=== PATIENT | female | born 1955 | race Caucasian/White ===

== ENCOUNTER 2023-02-03 13:36 | Outpatient (OUT) | payer MEDICARE, OTHER, SELFPAY ==
--- NOTE | 2023-02-03 13:48 | US_ITS ---
The [address] [address] Patient Name: ANGEL ANGEL MRN: [id number] date: 1955 Sex: F Assigned Patient Location: US Current Patient Location: US Accession/Order Number: [id number] Exam Date: 02/03/2023 13:49 Report Date: 02/03/2023 15:51 At the request of: NON-STAFF PHYSICIAN Procedure: US soft tissue head and neck EXAM: US soft tissue head and neck HISTORY: History of radioactive iodine thyroid ablation Z92.3, C73 COMPARISON: Ultrasound thyroid 10/01/2022 TECHNIQUE: Percutaneous ultrasound evaluation. FINDINGS: Prior thyroidectomy. Unremarkable right thyroid fossa. Left thyroid fossa contains a 5 x 5 x 4 mm hypoechoic area which is similar to prior study. US/US soft tissue head and neck IMPRESSION: 1. Stable postsurgical changes versus residual thyroid tissue within left thyroid fossa. No new findings. Electronically authenticated by: TOMER WYLIE Date: 02/03/2023 15:51
[2023-02-03 15:06] LABS: Free Thyroxine Index 4.52 (1.30-4.50); Thyroid Stimulating Hormone 1.387 uIU/mL (0.358-3.740)
[2023-02-05 18:08] LABS: Thyroglobulin Antibody <1.0 IU/mL (0.0-0.9)
== END 2023-02-03 13:37 | disposition home or self-care (01) ==
LOC: US 13:41
PROVIDERS: PCP Family Medicine
DX: C73 Malignant neoplasm of thyroid gland (principal); Z92.3 Personal history of irradiation
CPT/HCPCS: 36415; 76536; 84436; 84443; 84479

== ENCOUNTER 2023-08-16 08:58 | Outpatient (OUT) | payer MEDICARE, OTHER, SELFPAY ==
--- NOTE | 2023-08-16 09:02 | US_ITS ---
The [address] [address] Patient Name: ANGEL ANGEL MRN: [id number] date: 1955 Sex: F Assigned Patient Location: US Current Patient Location: US Accession/Order Number: [id number] Exam Date: 08/16/2023 09:03 Report Date: 08/16/2023 15:17 At the request of: NON-STAFF PHYSICIAN Procedure: US soft tissue head and neck EXAMINATION: US soft tissue head and neck HISTORY: Papillary thyroid carcinoma C73 COMPARISON: Ultrasound soft tissue head and neck 02/03/2023 FINDINGS: RIGHT LOBE: Prior thyroidectomy. Small amount of homogeneous tissue within right thyroid bed, approximately 2.1 x 0.7 x 0.7 cm. LEFT LOBE: Prior thyroidectomy. Small amount of homogeneous tissue within right thyroid bed, proximally 0.6 x 0.5 0.7 cm. US/US soft tissue head and neck IMPRESSION: 1. Nonspecific soft tissue within the right and left thyroid bed, but suspected represent residual thyroid tissue. Left side is stable. Right side is new versus better seen on today's study and able to document. Follow-up recommended. Electronically authenticated by: TOMER WYLIE Date: 08/16/2023 15:17
--- NOTE | 2023-08-16 09:03 | CT_ITS ---
[address] [address] Patient Name: ANGEL ANGEL MRN: [id number] date: 1955 Sex: F Assigned Patient Location: US Current Patient Location: US Accession/Order Number: [id number] Exam Date: 08/16/2023 09:19 Report Date: 08/16/2023 13:29 At the request of: NON-STAFF PHYSICIAN Procedure: CT lung screening low-dose EXAMINATION: CT lung screening low-dose HISTORY: continuous dependence on cigarette smoking F17.210 COMPARISON: CT LUNG CANCER SCREENING 08/11/2022 TECHNIQUE: Axial, Coronal, and Sagittal images were created without the administration of IV contrast material. Dose reduction techniques were achieved by using automated exposure control and/or adjustment of mA and/or kV according to patient size and/or use of iterative reconstruction technique. FINDINGS: LUNGS: Stable 3 mm nodule within right middle lobe. Stable 6 mm nodule within inferior aspect of left upper lobe/lingula with several 3 mm nodules scattered within the upper lobe, unchanged. No acute infiltrates. PLEURA: No mass, effusion, or pneumothorax. VASCULATURE: No abnormality. SAMMI: No mass or pathologic adenopathy. MEDIASTINUM: No mass or pathologic adenopathy. CARDIAC: No enlargement, pericardial thickening, or pericardial effusion. AORTA: No aneurysm or dissection. CHEST WALL: No mass or axillary adenopathy BONES: No bone lesion or fracture. LIMITED ABDOMEN: Stable 3.5 cm cyst versus hemangioma within left hepatic lobe. Limited images of the upper abdomen. OTHER: Negative. CT/CT lung screening low-dose IMPRESSION: 1. Lung-RADS 2- Benign Appearance or Behavior. Nodules with a very low likelihood of becoming a clinically active cancer due to size or lack of growth. Follow-up CT Chest in 1 year. Electronically authenticated by: TOMER WYLIE Date: 08/16/2023 13:29
[2023-08-16 10:49] LABS: Free T4 1.68 ng/dL (0.76-1.46)
[2023-08-16 10:58] LABS: Thyroid Stimulating Hormone 0.963 uIU/mL (0.358-3.740)
[2023-08-17 17:07] LABS: Thyroglobulin Antibody <1.0 IU/mL (0.0-0.9)
== END 2023-08-16 08:59 | disposition home or self-care (01) ==
LOC: US 08:58
PROVIDERS: PCP Family Medicine
DX: C73 Malignant neoplasm of thyroid gland (principal); Z08 Encounter for follow-up examination after completed treatment for malignant neoplasm; Z85.850 Personal history of malignant neoplasm of thyroid; Z92.3 Personal history of irradiation; F17.210 Nicotine dependence, cigarettes, uncomplicated; R91.8 Other nonspecific abnormal finding of lung field
CPT/HCPCS: 36415; 71271; 76536; 84439; 84443

== ENCOUNTER 2023-09-15 12:52 | Outpatient (OUT) | payer MEDICARE, OTHER, SELFPAY ==
--- NOTE | 2023-09-15 12:55 | MM_ITS ---
Patient Name: ANGEL ANGEL MR#: [id number] : 1955 Exam Date: 09/15/2023 Ordering Doctor: DR RACHEL FUENTES . RADIOLOGY REPORT PROCEDURE: MM TOMOSYNTHESIS SCREENING BI COMPARISON: MG MAMM SCREEN 3D [place] CAD, 12/11/2020. MG MAMM SCREEN 3D [place] CAD, 07/23/2022. INDICATIONS: Screening Calculator Name NCI Breast Cancer Risk Assessment Tool 5 Year Breast Cancer Risk 0.80% Lifetime Breast Cancer Risk 3.00% Personal Breast Cancer No Personal Ovarian Cancer No Treatments None Family Cancers Aunt-maternal with breast cancer at age 50; Brother with oral cancer at age 55; Brother with colon cancer at age 62. LOCATION: The [facility] BREAST COMPOSITION: The breasts are extremely dense, which lowers the sensitivity of mammography. FINDINGS: DIAGNOSTIC CATEGORY 2--BENIGN FINDING. NO CHANGE FROM COMPARISON. Scattered benign-appearing calcifications are present. Scattered benign-appearing lymph nodes are present. RIGHT BREAST: No significant suspicious finding. LEFT BREAST: No significant suspicious finding. RECOMMENDATIONS: ROUTINE MAMMOGRAM AND CLINICAL EVALUATION IN 12 MONTHS. PLEASE NOTE: A NORMAL MAMMOGRAM DOES NOT EXCLUDE THE POSSIBILITY OF BREAST CANCER. A CLINICALLY SUSPICIOUS PALPABLE LUMP SHOULD BE BIOPSIED. Dictated by: Silas Khalil MD on 09/15/2023 at 15:22 Approved by: Silas Khalil MD on 09/15/2023 at 15:25
== END 2023-09-15 12:53 | disposition home or self-care (01) ==
LOC: MAMMO 12:52
PROVIDERS: PCP Family Medicine; Visit Provider Family Medicine
DX: Z12.31 Encounter for screening mammogram for malignant neoplasm of breast (principal); Z80.3 Family history of malignant neoplasm of breast; Z80.0 Family history of malignant neoplasm of digestive organs; Z80.8 Family history of malignant neoplasm of other organs or systems
CPT/HCPCS: 77063; 77067

== ENCOUNTER 2023-10-16 10:05 | Emergency (ER) | payer MEDICARE, OTHER, SELFPAY ==
[2023-10-16 10:07] VITALS: BP 177/84; PULSE 91; TEMP 37.1; O2SAT 96; BMI 22.3
--- OUTSIDE RECORDS SUMMARY | 2023-10-16 10:18 | XMS_ITS | CCD ---
Author Organization [facility] Care Team Providers Care Athletic Agent Name Role Phone JI FERRERA JR Referring Unavailable HOY, RACHEL M Primary Care Unavailable HOY ., DR RAMOS Admitting Unavailable HOY ., DR RAMOS Primary Care Unavailable HOY ., DR RAMOS Consulting Unavailable HOY ., DR RAMOS Attending Unavailable ZIEBER, DR SHAQ Butts Consulting Unavailable HOY ., DR RAMOS Admitting Unavailable HOY ., DR RAMOS Primary Care Unavailable HOY ., DR RAMOS Consulting Unavailable HOY ., DR RAMOS Attending Unavailable ZIEBER, DR SHAQ Butts Consulting Unavailable HOY ., DR RAMOS Admitting Unavailable HOY ., DR RAMOS Primary Care Unavailable HOY ., DR RAMOS Consulting Unavailable HOY ., DR RAMOS Attending Unavailable MISC, DR MOSQUERA Admitting Unavailable HOY ., DR RAMOS Primary Care Unavailable MISC, DR MOSQUERA Attending Unavailable TIMMIS, DR WORKMAN Admitting Unavailable HOY ., DR RAMOS Primary Care Unavailable TIMMIDion, DR WORKMAN Attending Unavailable HOY ., DR RAMOS Primary Care Unavailable MISC, DR MOSQUERA Admitting Unavailable MISC, DR MOSQUERA Consulting Unavailable MISC, DR MOSQUERA Attending Unavailable ZIEBER, DR SHAQ Butts Consulting Unavailable [facility], ANETTE A Attending Unavailable HOY, RACHEL M Referring Unavailable HOY, RACHEL M Primary Care Unavailable HOY, RACHEL M Referring Unavailable HOY, RACHEL M Primary Care Unavailable HOY, RACHEL M Referring Unavailable HOY, RACHEL M Primary Care Unavailable Problems Active Problems Problem Classification Problem Date Documented Da te Episodic/Chronic Cancer of thyroid (1 source) Malignant neoplasm of thyroid gland; Translations: [Malignant neoplasm of thyroid gland] Onset: 09-03-2020 Chronic Chronic obstructive pulmonary disease and bronchiectasis (4 sources) Chronic obstructive pulmonary disease, unspecified; Translations: [COPD UNSPECIFIED] Onset: 07-22-2022 Chronic Deficiency and other anemia (1 source) Anemia, unspecified; Translations: [ANEMIA UNSPECIFIED] Onset: 07-25-2022 Episodic Diabetes mellitus without complication (1 source) Other abnormal glucose; Translations: [OTHER ABNORMAL GLUCOSE] Onset: 07-25-2022 Episodic Disorders of lipid metabolism (1 source) Hyperlipidemia, unspecified; Translations: [HYPERLIPIDEMIA UNSPECIFIED] Onset: 07-25-2022 Chronic Fluid and electrolyte disorders (1 source) Dehydration; Translations: [DEHYDRATION] Onset: 07-25-2022 Episodic Nutritional deficiencies (1 source) Vitamin D deficiency, unspecified; Translations: [VITAMIN D DEFICIENCY UNSPECIFIED] Onset: 07-25-2022 Chronic Osteoporosis (1 source) Age-related osteoporosis without current pathological fracture; Translations: [AGE-REL OSTEOPOR W/O CURR PATH FX] Onset: 08-12-2022 Chronic Other screening for suspected conditions (not mental disorders or infectious disease) (5 sources) Encounter for screening mammogram for malignant neoplasm of breast; Translations: [Encounter for screening for malignant neoplasm of rectum] Onset: 07-23-2022 Episodic Residual codes; unclassified (1 source) Family history of malignant neoplasm of breast; Translations: [FAMILY HX MALIG NEOPLASM OF BREAST] Onset: 07-28-2022 Episodic Residual codes; unclassified (1 source) Family history of malignant neoplasm of digestive organs; Translations: [FAM HX MALIG NEOPLASM DIGESTIV ORGN] Onset: 07-28-2022 Episodic Residual codes; unclassified (1 source) Pain, unspecified; Translations: [Pain, unspecified] Onset: 08-31-2023 Episodic Substance-related disorders (2 sources) Nicotine dependence, cigarettes, uncomplicated; Translations: [Nicotine dependence, cigarettes, with unspecified nicotine-induced disorders] Onset: 08-12-2022 Chronic Past or Other Problems Problem Classification Problem Date Documented Da te Episodic/Chronic Cancer of thyroid (6 sources) Personal history of malignant neoplasm of thyroid; Translations: [PERSONAL HX MALIG NEOPLASM THYROID] Onset: 11-14-2020 Episodic Other aftercare (6 sources) Encounter for follow-up examination after completed treatment for malignant neoplasm; Translations: [ENC F/U EX AFTR CMPL [place] MALIG NEOPL] Onset: 11-14-2020 Episodic Residual codes; unclassified (1 source) Personal history of irradiation; Translations: [Personal history of irradiation] Onset: 11-14-2020 Episodic Results Test Name Value Interpretation Reference Range Facility THYROGLOBULIN AB AND THYROGL OBULINon 08-12-2022 Thyroglobulin Antibody <1.0 Normal 0.0-0.9 [facility] Comment on above: Result Comment: Thyr oglobulin Antibody measured by Antonio Faunsdale Methodology Performed By: #### T HYGIMA #### [facility] [address] [address] [address] Aung Mohamud Thyroglobulin by CUONG 0.1 ng/mL Critically low 1.5-38.5 [facility] Comment on above: Result Comment: Acco rding to the National Academy of Clinical Biochemistry, the reference interval for Thyroglobulin (TG) should be related to euthyroid patients and not for patients who underwent thyroidectomy. TG reference intervals for these patients depend on the residual mass of the thyroid tissue left after surgery. Establishing a post-operative baseline is recommended. The assay limit of quantitation is 0.1 ng/mL . Thyroglobulin measured by Antonio Sam Immunometric Assay Performed By: #### T HYGIMA #### [facility] [address] [address] [address] LUNG CANCER SCREENINGon 0 08-11-2022 CT LUNG CANCER SCREENING EXAMINATION: CT LUNG CANCER SCREENING HISTORY: Tobacco dependence caused by cigarettes COMPARISON: CT LUNG CANCER SCREENING 08/12/2021 TECHNIQUE: Axial, Coronal, and Sagittal images were created without the administration of IV contrast material. Dose reduction techniques were achieved by using automated exposure control and/or adjustment of mA and/or kV according to patient size and/or use of iterative reconstruction technique. FINDINGS: LUNGS: Several tiny nodules scattered within the lungs, largest is within anterior inferior aspect of left upper lobe, 5 mm. Minimal emphysematous changes. PLEURA: No mass, effusion, or pneumothorax. VASCULATURE: No abnormality. SAMMI: No mass or pathologic adenopathy. MEDIASTINUM: No mass or pathologic adenopathy. CARDIAC: No enlargement, pericardial thickening, or significant calcification. AORTA: No aneurysm or dissection. CHEST WALL: No mass or axillary adenopathy BONES: No bone lesion or fracture. LIMITED ABDOMEN: Left hepatic lobe cyst. Limited images of the upper abdomen. OTHER: Negative. IMPRESSION: 1. Lung-RADS 2- Benign Appearance or Behavior. Nodules with a very low likelihood of becoming a clinically active cancer due to size or lack of growth. Follow-up CT Chest in 1 year. Electronically authenticated by: SHAQ OSORIO Date: 2022-08-11 14:16 Normal [facility] TSHon 08-11-2022 TSH 0.766 uIU/mL Normal 0.358-3.740 [facility] Comment on above: Performed By: #### T SH #### [facility] [address] [place] [address] Dr. Aung Mohamud XR DEXA BONE DENSITYon 08-11 XR DEXA BONE DENSITY EXAMINATION: XR DEXA BONE DENSITY, 08/11/2022 1:06 PM EDT HISTORY: Senile osteoporosis COMPARISON: None. TECHNIQUE: Dual-energy X-ray absorptiometry (DEXA) bone density study performed for the axial skeleton. FINDINGS: SPINE ANALYSIS: Average bone mineral density is 0.711 g/cm2. T-score (standard deviation relative to young adult mean): -3.9 . HIP ANALYSIS: Lowest bone mineral density is within the right femoral trochanter, 0.405 g/cm2. T-score (standard deviation relative to young adult mean): -3.9 . IMPRESSION: World Jose M Organization Classification: Osteoporosis - High Fracture Risk Electronically authenticated by: SHAQ OSORIO Date: 2022-08-11 13:42 Normal [facility] INSULINon 07-23-2022 Insulin 7.2 uIU/mL Normal 2.6-24.9 [facility] Comment on above: Performed By: #### I NSULIN #### [facility] [address] [place] [address] Dr. Aung Mohamud MG MAMM SCREEN 3D GALINA CADon 07-23-2022 MG MAMM SCREEN 3D GALINA CAD Patient: MELISSA MAYFIELD I. Exam Date: 07/23/2022 : 1955 Gender:F Ordering : DR RACHEL CARVAJAL . Admission #: [id number] Family : Order #: [id number] CLICK HERE TO VIEW EXAM RADIOLOGY REPORT PROCEDURE: MAMMOGRAM SCREENING 3D BILATERAL CAD COMPARISON: MG MAMM SCREEN 3D GALINA CAD, 12/11/2020. INDICATIONS: Screening mammography Calculator Name NCI Breast Cancer Risk Assessment Tool 5 Year Breast Cancer Risk 0.80% Lifetime Breast Cancer Risk 3.10% Personal Breast Cancer No Personal Ovarian Cancer No Treatments None Family Cancers Aunt-maternal with breast cancer at age 50; Brother with oral cancer at age 55; Brother with colon cancer at age 62. LOCATION: [facility] BREAST COMPOSITION: Extremely dense, which lowers the sensitivity of mammography. FINDINGS: DIAGNOSTIC CATEGORY 2--BENIGN FINDING: RIGHT BREAST: No significant suspicious finding. No significant change has occurred. LEFT BREAST: No significant suspicious finding. Scattered benign-appearing nodules are present. No significant change has occurred. RECOMMENDATIONS: ROUTINE MAMMOGRAM AND CLINICAL EVALUATION IN 12 MONTHS. PLEASE NOTE: A NORMAL MAMMOGRAM DOES NOT EXCLUDE THE POSSIBILITY OF BREAST CANCER. A CLINICALLY SUSPICIOUS PALPABLE LUMP SHOULD BE BIOPSIED. Dictated by: Shaq Osorio M.D. on 07/24/2022 at 07:50 Approved by: Shaq Osorio M.D. on 07/24/2022 at 07:53 Normal [facility] CBC AUTO DIFFon 07-22-2022 BASO # 0.0 103/ul Normal 0.0-0.1 [facility] Comment on above: Performed By: #### C BC #### [facility] [address] [address] [address] Aung Mohamud Basophils/100 WBC (Bld) 0.2 % Normal 0.2-2.0 [facility] Comment on above: Performed By: #### C BC #### [facility] [address] [address] [address] Aung Mohamud EO # 0.1 103/ul Normal 0.0-0.7 [facility] Comment on above: Performed By: #### C BC #### [facility] [address] [address] [address] Aung Mohamud Eosinophils/100 WBC (Bld) 2.4 % Normal 0.9-7.0 [facility] Comment on above: Performed By: #### C BC #### [facility] [address] [address] [address] Aung Mohamud Erythrocyte distribution width (RBC) [Ratio] 14.1 % Normal 11.0-15.0 [facility] Comment on above: Performed By: #### C BC #### [facility] [address] [place] [address] Dr. Aung Mohamud Hematocrit (Bld) [Volume fraction] 43.3 % Normal 36.0-48.0 [facility] Comment on above: Performed By: #### C BC #### [facility] [address] [place] [address] Dr. Aung Mohamud Hemoglobin (Bld) [Mass/Vol] 14.5 g/dL Normal 12.0-16.0 [facility] Comment on above: Performed By: #### C BC #### [facility] [address] [place] [address] Dr. Aung Mohamud IG # 0.02 10e3/ul Normal 0.00-0.03 [facility] Comment on above: Performed By: #### C BC #### [facility] [address] [place] [address] Dr. Aung Mohamud IG % 0.3 % Normal 0.0-0.5 [facility] Comment on above: Performed By: #### C BC #### [facility] [address] [place] [address] Dr. Aung Mohamud LYMPH # 1.5 103/ul Normal 1.2-3.8 [facility] Comment on above: Performed By: #### C BC #### [facility] [address] [place] [address] Dr. Aung Mohamud Lymphocytes/100 WBC (Bld) 24.6 % Normal 20.5-60.0 [facility] Comment on above: Performed By: #### C BC #### [facility] [address] [place] [address] Dr. Aung Mohamud MANUAL DIFF REQ NO Normal [facility] Comment on above: Performed By: #### C BC #### [facility] [address] [place] [address] Dr. Aung Mohamud MCH (RBC) [Entitic mass] 31.1 pg Normal 26.7-34.0 [facility] Comment on above: Performed By: #### C BC #### [facility] [address] [address] [address] Aung Mohamud MCHC (RBC) [Mass/Vol] 33.5 g/dL Normal 29.9-35.2 [facility] Comment on above: Performed By: #### C BC #### [facility] [address] [place] [address] Dr. Aung Mohamud MCV (RBC) [Entitic vol] 92.9 fL Normal 81.0-99.0 [facility] Comment on above: Performed By: #### C BC #### [facility] [address] [place] [address] Dr. Aung Mohamud MONO # 0.3 103/ul Normal 0.3-0.8 [facility] Comment on above: Performed By: #### C BC #### [facility] [address] [place] [address] Dr. Aung Mohamud Monocytes/100 WBC (Bld) 4.9 % Normal 1.7-12.0 [facility] Comment on above: Performed By: #### C BC #### [facility] [address] [place] [address] Dr. Aung Mohamud NEUT # 4.0 103/ul Normal 1.4-6.5 [facility] Comment on above: Performed By: #### C BC #### [facility] [address] [place] [address] Dr. Aung Mohamud Neutrophils/100 WBC (Bld) 67.6 % Normal 43.0-75.0 [facility] Comment on above: Performed By: #### C BC #### [facility] [address] [place] [address] Dr. Aung Mohamud Platelet mean volume (Bld) [Entitic vol] 10.2 fL Normal 9.5-13.5 [facility] Comment on above: Performed By: #### C BC #### [facility] [address] [place] [address] Dr. Aung Mohamud PLT 333 103/ul Normal 150-450 [facility] Comment on above: Performed By: #### C BC #### [facility] [address] [address] [address] Aung Mohamud RBC 4.66 106/ul Normal 4.20-5.40 [facility] Comment on above: Performed By: #### C BC #### [facility] [address] [address] [address] Aung Mohamud WBC 5.9 103/ul Normal 4.0-11.0 [facility] Comment on above: Performed By: #### C BC #### [facility] [address] [address] [address] Aung Mohamud FREE THYROXINE INDEX T7on FTI 5.00 Critically high 1.30-4.50 [facility] Comment on above: Performed By: #### L IPID, T7, CMP, TSH ####[facility] [address] [address]Dr. Aung Mohamud T3U 37.0 % Normal 30.0-39.0 [facility] Comment on above: Performed By: #### L IPID, T7, CMP, TSH ####[facility] [address] [id number]. Aung Mohamud T4 [Mass/Vol] 13.50 ug/dL Normal 4.80-13.90 [facility] Comment on above: Performed By: #### L IPID, T7, CMP, TSH ####[facility] [address] [address]Dr. Aung Mohamud GLYCOHEMOGLOBIN A1Con 2022 ADA RECOMMENDATION SEE BELOW Normal [facility] Comment on above: Result Comment: ADA RECOMMENDED LIMIT 4.0 - 6.0 ADA THERAPEUTIC TARGET < 7.0 ACTION SUGGESTED > 7.0 Performed By: #### A 1C #### [facility] [address] [address] [address] Aung Mohamud Glucose [Mass/Vol] 117 mg/dL Normal [facility] Comment on above: Performed By: #### A 1C #### [facility] [address] [address] [address] Aung Mohamud HbA1c (Bld) [Mass fraction] 5.7 % Normal 4.5-6.2 [facility] Comment on above: Performed By: #### A 1C #### [facility] [address] [address] [address] Aung Mohamud IRONon 07-22-2022 Iron [Mass/Vol] 118.0 ug/dL Normal 50.0-170.0 [facility] Comment on above: Performed By: #### V ITAD, IRON #### [facility] [id number] Aung Mohamud LIPID PROFILEon 07-22-2022 CHOL-HDL RATIO NORM SEE BELOW Normal [facility] Comment on above: Result Comment: 3.3 - 4.4 LOW RISK 4.4 - 7.1 AVERAGE RISK 7.1 - 11.0 MODERATE RISK >11.0 HIGH RISK Performed By: #### L IPID, T7, CMP, TSH ####[facility] [address] [id number]. Aung Mohamud Cholesterol [Mass/Vol] 209 mg/dL Critically high <=200 [facility] Comment on above: Performed By: #### L IPID, T7, CMP, TSH ####[facility] [address] [address]Dr. Aung Mohamud Cholesterol in HDL [Mass/Vol] 66 mg/dL Critically high 40-60 [facility] Comment on above: Performed By: #### L IPID, T7, CMP, TSH ####[facility] [address] [id number]. Aung Mohamud Cholesterol in LDL [Mass/Vol] 118.8 mg/dL Normal [facility] Comment on above: Performed By: #### L IPID, T7, CMP, TSH ####[facility] [address] [id number]. Aung Mohamud Cholesterol.total/Cho lesterol in HDL [Mass ratio] 3.2 {ratio} Normal [facility] Comment on above: Performed By: #### L IPID, T7, CMP, TSH ####[facility] [address] [id number]. Aung Mohamud HDL NORMAL > or = 60 mg/dl - LOW CARDIOVASCULAR RISK <40 mg/dl - HIGH CARDIOVASCULAR RISK Normal [facility] Comment on above: Performed By: #### L IPID, T7, CMP, TSH ####[facility] [address] [address]Dr. Aung Mohamud LDL CALC NORMAL SEE BELOW Normal [facility] Comment on above: Result Comment: <100 mg/dl OPTIMAL 100 - 129 mg/dl NEAR OR ABOVE OPTIMAL 130 - 159 mg/dl BORDERLINE HIGH 160 - 189 mg/dl HIGH >190 mg/dl VERY HIGH Performed By: #### L IPID, T7, CMP, TSH ####[facility] [address] [address]Dr. Aung Mohamud Triglyceride [Mass/Vol] 121 mg/dL Normal <=150 [facility] Comment on above: Performed By: #### L IPID, T7, CMP, TSH ####[facility] [address] [address]Dr. Aung Mohamud VLDL CALC 24.2 mg/dL Normal [facility] Comment on above: Performed By: #### L IPID, T7, CMP, TSH ####[facility] [address] [address]Dr. Aung Mohamud PROF 14(COMP METB)on 023 Albumin [Mass/Vol] 3.7 g/dL Normal 3.4-5.0 [facility] Comment on above: Performed By: #### L IPID, T7, CMP, TSH ####[facility] [address] [address]Dr. Aung Mohamud Albumin/Globulin [Mass ratio] 0.9 {ratio} Normal [facility] Comment on above: Performed By: #### L IPID, T7, CMP, TSH ####[facility] [address] [address]Dr. Aung Mohamud ALP [Catalytic activity/Vol] 171 U/L Critically high 46-116 [facility] Comment on above: Performed By: #### L IPID, T7, CMP, TSH ####[facility] [address] [address]Dr. Aung Mohamud ALT [Catalytic activity/Vol] 16 U/L Normal 14-59 [facility] Comment on above: Performed By: #### L IPID, T7, CMP, TSH ####[facility] [address] [address]Dr. Aung Mohamud Anion gap [Moles/Vol] 10.9 mmol/L Normal [facility] Comment on above: Performed By: #### L IPID, T7, CMP, TSH ####[facility] [address] [address]Dr. Aung Mohamud AST [Catalytic activity/Vol] 18 U/L Normal 15-37 [facility] Comment on above: Performed By: #### L IPID, T7, CMP, TSH ####[facility] [address] [address]Dr. Aung Mohamud Bilirubin [Mass/Vol] 0.3 mg/dL Normal 0.2-1.0 [facility] Comment on above: Performed By: #### L IPID, T7, CMP, TSH ####[facility] [address] [address]Dr. Aung Mohamud Calcium [Mass/Vol] 9.4 mg/dL Normal 8.5-10.1 [facility] Comment on above: Performed By: #### L IPID, T7, CMP, TSH ####[facility] [address] [address]Dr. Aung Mohamud Chloride [Moles/Vol] 103 mmol/L Normal 98-107 [facility] Comment on above: Performed By: #### L IPID, T7, CMP, TSH ####[facility] [address] [address]Dr. Aung Mohamud CO2 [Moles/Vol] 27.8 mmol/L Normal 21.0-32.0 [facility] Comment on above: Performed By: #### L IPID, T7, CMP, TSH ####[facility] [address] [address]Dr. Aung Mohamud Creatinine [Mass/Vol] 0.71 mg/dL Normal 0.55-1.02 [facility] Comment on above: Performed By: #### L IPID, T7, CMP, TSH ####[facility] [address] [address]Dr. Aung Mohamud EGFR-AF CITIZEN [place] >60 Normal >=60 [facility] Comment on above: Performed By: #### L IPID, T7, CMP, TSH ####[facility] [address] [address]Dr. Aung Mohamud EGFR-NON AF CITIZEN OF [place] >60 Normal >=60 [facility] Comment on above: Performed By: #### L IPID, T7, CMP, TSH ####[facility] [address] [address]Dr. Aung Mohamud Globulin (S) [Mass/Vol] 4.3 g/dL Normal [facility] Comment on above: Performed By: #### L IPID, T7, CMP, TSH ####[facility] [address] [place], [place] [address]Dr. Aung Mohamud Glucose [Mass/Vol] 91 mg/dL Normal 74-106 [facility] Comment on above: Performed By: #### L IPID, T7, CMP, TSH ####[facility] [address] [address]Dr. Rosalinaharvey Mohamud Potassium [Moles/Vol] 3.7 mmol/L Normal 3.5-5.1 [facility] Comment on above: Performed By: #### L IPID, T7, CMP, TSH ####[facility] [address] [address]Dr. Aung Mohamdu Protein [Mass/Vol] 8.0 g/dL Normal 6.4-8.2 [facility] Comment on above: Performed By: #### L IPID, T7, CMP, TSH ####[facility] [address] [address]Dr. Aung Mohamud Sodium [Moles/Vol] 138 mmol/L Normal 136-145 [facility] Comment on above: Performed By: #### L IPID, T7, CMP, TSH ####[facility] [address] [id number]. Aung Mohamud Urea nitrogen [Mass/Vol] 13.0 mg/dL Normal 7.0-18.0 [facility] Comment on above: Performed By: #### L IPID, T7, CMP, TSH ####[facility] [address] [place] [id number]. uAng Mohamud Urea nitrogen/Creatinine [Mass ratio] 18.3 mg/mg Normal [facility] Comment on above: Performed By: #### L IPID, T7, CMP, TSH ####[facility] [id number] [place] [address]Dr. Aung Mohamud TSHon 07-22-2022 TSH 0.706 uIU/mL Normal 0.358-3.740 [facility] Comment on above: Performed By: #### L IPID, T7, CMP, TSH ####[facility] [id number] [place] [address]Dr. Aung Mohamud VITAMIN D 25 OHon 07-22-2022 VIT D 25-OH 10.2 ng/mL Normal [facility] Comment on above: Performed By: #### V JOSIE IRON #### [facility] [address] [place] [address] [address] Aung Mohamud VIT D RANGES SEE BELOW Normal [facility] Comment on above: Result Comment: <20 ng/mL Vit D deficient 20 - <30 ng/mL Vit D insufficient 30 - 100 ng/mL Vit D sufficient >100 ng/mL Potential Toxicity Performed By: #### V JOSIE IRON #### [facility] [address] [address] [address] Aung Mohamud Thyroid Stim. Horm.on 2021 Thyroid Stim. Horm. 0.43 uIU/mL Normal 0.30-5.00 [facility] Comment on above: Performed By: #### T SH #### [facility] [address] [place] [address] Manager Restaurant: Silas Dia MD NOVEL CORONAVIRUS NASOPHARYN GEAL - [facility] SPECIMEN ONLYon 09-16-2020 SARS-CoV-2 (COVID-19) RNA JOSE ROBERTO+probe Ql (Unsp spec) Not detected Normal NOT DETECTED [facility] Comment on above: Order Comment: Viral transport media - Collection must be done while wearing N-95 mask, eye protection, gown and gloves. Please label ALL specimens as 2019-nCoV rule out and deliver by hand. This test was performed using [employer] and has been approved as Emergency Use Authorization (EUA) for the qualitative detection of SARS-CoV-2 nucleic acid. Result Comment: [facility] Negative results do not preclude SARS-CoV-2 infection and should not be used as the sole basis for treatment or other patient management decisions. Optimum specimen types and timing for peak viral levels during infections caused by SARS-CoV-2 has not been determined. The possibility of a false negative result should especially be considered if the patient's recent exposures or clinical presentation suggest that SARS-CoV-2 infection is probable, and diagnostic tests for other causes of illness (e.g., other respiratory illness) are negative. Collection of a new specimen and re-testing may be necessary if the patient is critically ill or clinically deteriorating. Performed By: #### L [id number] #### [facility] (DEFAULT) [address] [place] [address] Outside Colonoscopyon 2020 Outside Colonoscopy [id number] C#1.00CD:127 Normal [facility] Lab Reportson 06-24-2020 Lab Reports [id number]#1.00CD:127 Normal [facility] Provider Letter FTMCon 06-21 Provider Letter [facility] Rachel Carvajal, [address] [place] [address] [place] [address] Re: MELISSA MAYFIELD Date of : 1955 Thank you for your referral of Melissa Mayfield who was seen on consultation on 2020, for positive occult stool. A colonoscopy is planned for further evaluation. I have enclosed my consultation notes for your review. I will be happy to follow Melissa should her symptoms persist. Sincerely, Hernán Raymundo MD General Surgery Normal [facility] Consent for Procedure/Surger yon 06-19-2020 Consent for Procedure/Surgery [id number] 86#1.00CD:127 Normal [facility] Facesheeton 06-19-2020 Facesheet [id number] 37#1.00CD:127 Normal [facility] Ambulatory Clinical Summaryo n 06-18-2020 Ambulatory Clinical Summary {[id number]}CD:[id number] Normal [facility] General Surgery Office/Clini c Noteon 06-18-2020 General Surgery Office/Clinic Note Chief Complaint referral for positive occult stool HPI Staff 65 year old female presents on consultation from Dr. Carvajal for positive occult stool. Denies obvious rectal bleeding. No rectal or abdominal pain. Denies nausea or vomiting. No unexplained weight loss. Denies change in bowel habits. She believes she had a colonoscopy greater than 10 years ago. No known family history of colon cancer. History of Present Illness 65 yo female referred for positive fecal occult blood, denies change in bms or gross blood in stools, no abdominal complaints; only abdominal operation cholecystectomy; reports remote colonoscopy over 10 years ago, reportedly wnl; no asa or NSAID use, no SBE prophylaxis, no fmhx of GI malignancy or IBD. smokes 1/2 ppd for many years. Review of Systems PHQ Score Initial Depression Screen Score: 0 ROS - Provider Constitutional: no fever, no sweats, no weight loss. Eyes: no glasses, no blurred vision, no visual loss. ENMT: no dentures, no hoarseness, no swallowing difficulties, no hearing loss, no ear infection(s), no nose bleeds. Cardiovascular: normal blood pressure, no chest pain, regular heartbeat, no heart murmur. Respiratory: no shortness of breath, no cough, no asthma, no wheezing. Gastrointestinal: no nausea, no vomiting, no diarrhea, no constipation, no blood in stool, no change in bowel habits, no abdominal pain, no hepatitis. Genitourinary: no kidney stones, no urine infection, no dysuria. Musculoskeletal: no pain, no weakness. Skin: no changing moles, no rash, no skin lumps. Neurologic: no seizures, no epilepsy, no headache. Psychiatric: no emotional or psychiatric problem. Heme/Lymph: no bleeding problems, no anemia, no blood clots, no transfusions. Allergy/Immunologic : no swollen lymph nodes/glands, no IV drug abuse. Other: Additional ROS info: Except as noted in the above Review of Systems and in the History of Present Illness, all other systems have been reviewed and are negative or noncontributory. Physical Exam Vitals & Measurements T: 37.0 ?C (Tympanic) HR: 68(Peripheral) RR: 16 BP: 122/84 HT: 157.48 cm HT: 157.5 cm WT: 63.2 kg WT: 63.2 kg BMI: 25.48 HEENT: normal conjunctiva, sclera clear, no scleral icterus, EOM intact, PERRLA, oral mucosa moist without lesions. Neck: trachea midline, no mass, symmetric, no thyromegaly or nodules, no adenopathy Respiratory: lungs CTA, respirations non labored. Cardiovascular: regular rate and rhythm, no murmur, no pedal edema or varicosities. Gastrointestinal: soft, non distended, no tenderness, no masses, no palpable hernias, diastasis recti no, no hepatosplenomegaly; normal bs Lymphatic: no cervical adenopathy, no axillary adenopathy, Musculoskeletal: normal gait, digits and nails without infection, nodes, cyanosis, clubbing. Skin: no rashes, no lesions, no ulcers, no subcutaneous nodules, induration. Psychiatric/Neuro: oriented to time, place, person, judgement normal, affect appropriate for age, insight intact, no focal deficits. Tests: labs reviewed,of old records completed, Discussed surgical options, risks, and possible complications with patient. Assessment/Plan 1. Positive fecal occult blood test (R19.5: Other fecal abnormalities) plan colonoscopy under anesthesia, informed consent obtained. patient understands the risks associated with COVID-19, and the need for preoperative testing with self-isolation until the procedure. 2. Tobacco abuse (Z72.0: Tobacco use) We strongly recommend to quit tobacco use. Cigarette smoking harms nearly every organ of the body, causes many diseases, and reduces the health of smokers in general. Quitting smoking lowers your risk for smoking-related diseases and can add years to your life. We encourage you to visit www.smokefree.gov access to helpful resources including free telephone support. If you decide on prescription treatment to help you quit, your family doctor would be happy to provide these. 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 Medications No active medications Allergies No Known Allergies Social History Alcohol - Denies Alcohol Use, 06/18/2020 Substance Abuse - Denies Substance Abuse, 06/18/2020 Tobacco 10 or more cigarettes (1/2 pack or more)/day in last 30 days Tobacco Use:. Cigarettes, 1 per day. Started age 29.0 Years. Yes, 06/18/2020 Family History Hypertension: Mother and Father. [facility] Comment on above: Result Comment: Elec tronically Signed By: DENIZ STRATTON, Hernán Butts\zabrina\Date and Time Signed: 06/18/20 15:05 EST Physician Referralon 021 Physician Referral [id number] E9#1.00CD:127 [facility] Encounters Encounter Date Encounter Type Care Provider Facility Start: [facility] Start: 08-31-2023 End: 09-01-2023 ambulatory [facility] Start: 04-28-2023 End: 04-28-2023 ambulatory ANETTE RAJPUT Not Available Start: 10-01-[address] DOCTOR DELAROSA Facility :[facility] Start: 08-11-2022 End: 08-12-[address] RACHEL CARVAJAL . Facility:[facility] Start: 07-23-2022 End: 07-24-[address] RACHEL CARVAJAL . Facility:[facility] Start: 07-22-2022 End: 07-23-[address] RACHEL CARVAJAL . Facility:[facility] Start: 11-19-2021 End: 11-20-2021 ambulatory JI FERRERA JR [facility] Start: 11-14-[address] JI FERRERA [facility] ty:H1 Payers Date Payer Category Payer Unknown [id number] 2019 Unknown [id number] 1957 Medicare [id number] 1957 Self-pay 1957 Unknown [id number] 1955 Unknown [id number] 2.16.8 [id number] 1955 Unknown [id number] 2.16.84 [id number] 1955 Unknown [id number] 2.16.84 0.1.205964.3.579.2.593 1955 Unknown [id number] 2.16.84 0.1.680124.3.579.2.593 1955 Unknown [id number] 2.16.84 0.1.630367.3.579.2.593 1955 Unknown [id number] 2.16.84 0.1.936567.3.579.2.593 1955 Unknown [id number] 2.16.84 0.1.920394.3.579.2.593 1955 Unknown [id number] 2.16.840 .[id number] 1955 Unknown [id number] 2.16.8 40.1.957016.3.579.2.1286 1955 Unknown [id number] 2.16.8 40.1.982597.3.579.2.1286 1955 Unknown [id number] 2.16.8 [id number] 1955 Unknown [id number] 2.16.8 [id number] Summary Purpose Family History No Family History Records FoundNo Family History Records FoundNo Family History Records FoundNo Family History Records FoundNo Family History Records FoundNo Family History Records FoundNo Family History Records Found Advance Directives No Advanced Directives Records FoundNo Advanced Directives Records FoundNo Advanced Directives Records FoundNo Advanced Directives Records FoundNo Advanced Directives Records FoundNo Advanced Directives Records FoundNo Advanced Directives Records Found Additional Source Comments INFORMATION SOURCE (unrecogn ized section and content) DATE CREATED AUTHOR 07/13/[address] [facility] DATE CREATED AUTHOR AUTHOR'S ORGANIZ ATION 09/17/2020 [facility] DATE CREATED AUTHOR AUTHOR'S ORGANIZ ATION 11/20/2021 [facility] DATE CREATED AUTHOR AUTHOR'S ORGANIZ ATION 09/28/2022 [facility] DATE CREATED AUTHOR AUTHOR'S ORGANIZ ATION [facility]/30/2023 [facility] DATE CREATED AUTHOR AUTHOR'S ORGANIZ ATION 09/01/2023 [facility] DATE CREATED AUTHOR AUTHOR'S ORGANIZ ATION 09/01/2023 [facility] FOR RECORDS PERTAINING TO PATIENTS WHO ARE OR HAVE BEEN ENROLLED IN A CHEMICAL DEPENDENCY/SUBSTANCEABUSE PROGRAM, SOME INFORMATION MAY BE OMITTED. This clinical summary was aggregated from multiple sources. Caution should be exercised in using it in the provision of clinical care. This summary normalizes information from multiple sources, and as a consequence, information in this document may materially change the coding, format and clinical context of patient data. In addition, data may be omitted in some cases. CLINICAL DECISIONS SHOULD BE BASED ON THE PRIMARY CLINICAL RECORDS. [facility] [employer] [facility]. provides no warranty or guarantee of the accuracy or completeness of information in this document.
[2023-10-16 10:22] VITALS: O2SAT 96
--- NOTE | 2023-10-16 10:34 | ED_ITS ---
HPI HPI - Extremity Injury (Lower) General Chief Complaint: Extremity Injury, Upper Stated Complaint: FALL Time Seen by Provider: 10/16/23 10:30 Source: patient and family Mode of arrival: Wheelchair History of Present Illness HPI Narrative: This patient is here with her . She had a fall approximately kilometers today at her home. She fell onto her right side. She says she scraped up her knee a little bit on the left side but she said that is really not bothering her and she can bear weight and move without problems. She also hit her right shoulder but she said that it is not bothering her like her right knee. She does not have any pain in her ribs abdomen or pelvis area. She has not had previous surgery on her knee. The knee is primarily sore over the medial aspect. She does not have an orthopedics pediatric physician. She is not on any blood thinners. Related Data Home Medications ?Medication ?Instructions ?Recorded ?Confirmed alendronate 70 mg tablet 70 mg PO QWEEK 10/16/23 10/16/23 cetirizine 10 mg tablet (Allergy 10 mg PO BID 10/16/23 10/16/23 Relief (cetirizine)) levothyroxine 88 mcg tablet 88 mcg PO QAM 10/16/23 10/16/23 Allergies Allergy/AdvReac Type Severity Reaction Status Date / Time No Known Drug Allergies Allergy Verified 10/16/23 10:12 Opioid HPI Opioid Management Most Recent Pain and Opioid Data: No Data to Display Exam Narrative Exam Narrative: Patient is awake alert does not appear to have any cranial facial or head or neck trauma. Examining her left knee there is superficial abrasions but she has full range of motion and no effusion. There is no tenderness to palpation. She and I agree it does not need imaging at this stage. The right knee definitely has a joint effusion. There is no gross deformity or evidence of dislocation. Neurovascular examination distally is normal. The patient's patella is not high riding and is not ballotable. The quadriceps and patella tendon are normal. She has a lot of discomfort over the medial aspect of the knee but it was not manipulated or stress test. Her upper hip and thigh area are asymptomatic. The ribs and chest area are nontender. Constitutional Vital Signs, click to edit/add: Last Vital Signs Temp 98.7 F 10/16/23 10:07 Pulse 91 H 10/16/23 10:07 Resp 16 10/16/23 10:07 BP 177/84 H 10/16/23 10:07 Pulse Ox 96 10/16/23 10:22 O2 Del Method Room Air 10/16/23 10:22 Course Vital Signs Vital signs: Vital Signs Temperature 98.7 F 10/16/23 10:07 Pulse Rate 91 H 10/16/23 10:07 Respiratory Rate 16 10/16/23 10:07 Blood Pressure 177/84 H 10/16/23 10:07 Pulse Oximetry 96 10/16/23 10:07 Oxygen Delivery Method Room Air 10/16/23 10:07 Temperature 98.7 F 10/16/23 10:07 Pulse Rate 91 H 10/16/23 10:07 Respiratory Rate 16 10/16/23 10:07 Blood Pressure 177/84 H 10/16/23 10:07 Pulse Oximetry 96 10/16/23 10:22 Oxygen Delivery Method Room Air 10/16/23 10:22 MDM - Extremity Injury (Lower) MDM Narrative Medical decision making narrative: X-rays show just a lot of degenerative changes and joint space narrowing on that right knee. No obvious fractures noted. Will place her in a knee immobilizing device nonweightbearing ice and following up with orthopedics. Discharge Plan Discharge Stand Alone Forms: Portal Instructions Chief Complaint: Extremity Injury, Upper Clinical Impression: Right knee sprain Patient Disposition: Home, Self-Care Time of Disposition Decision: 11:24 Prescriptions / Home Meds: No Action levothyroxine 88 mcg tablet 88 mcg PO QAM alendronate 70 mg tablet 70 mg PO QWEEK cetirizine [Allergy Relief (cetirizine)] 10 mg tablet 10 mg PO BID Print Language: Mohawk Additional Instructions: Ice for 48 hours/wear knee immobilizer at all times/nonweightbearing use crutches. Follow-up with Dr. Louie or your orthopedist this coming week Referrals: Aaron Carvajal MD [Primary Care Provider] - 1 week
--- NOTE | 2023-10-16 10:35 | XR_ITS ---
[address] [address] Patient Name: ANGEL ANGEL MRN: [id number] date: 1955 Sex: F Assigned Patient Location: ER Current Patient Location: ED.MAIN Accession/Order Number: [id number] Exam Date: 10/16/2023 10:55 Report Date: 10/16/2023 11:39 At the request of: HENRY KOCH Procedure: XR knee RT 3V EXAM: Right knee HISTORY: . Trauma/swelling . COMPARISON: None. TECHNIQUE: 3 views FINDINGS: There is some mild narrowing of the lateral joint compartment. Hypertrophic spurs are noted involving the knee joint as well as the patellofemoral joint. No acute fracture is noted. There is a small suprapatellar effusion. XR/XR knee RT 3V IMPRESSION: 1. No acute bony abnormality of the right knee. 2. Moderate arthritic changes of the right knee. 3. Small suprapatellar effusion. Electronically authenticated by: MARI FUNEZ Date: 10/16/2023 11:39
[2023-10-16 12:09] VITALS: BP 160/86
== END 2023-10-16 12:19 | disposition home or self-care (01) ==
PROVIDERS: Emergency Provider Emergency Medicine Emergency Medical Services; PCP Family Medicine
DX: S83.91XA Sprain of unspecified site of right knee, initial encounter (principal); W19.XXXA Unspecified fall, initial encounter
CPT/HCPCS: 73562; 99283

== ENCOUNTER 2023-11-15 11:54 | Outpatient (OUT) | payer MEDICARE, OTHER, SELFPAY ==
--- NOTE | 2023-11-15 | XR_ITS ---
The [address] [address] Patient Name: ANGEL ANGEL MRN: [id number] date: 1955 Sex: F Assigned Patient Location: Current Patient Location: Accession/Order Number: [id number] Exam Date: 11/15/2023 12:02 Report Date: 11/17/2023 06:17 At the request of: TOMER CHAVEZ Procedure: XR knee RT 4V PROCEDURE: XR knee RT 4V HISTORY: RIGHT KNEE PAIN COMPARISON: XR knee right 10/16/2023 FINDINGS: BONES:Marked narrowing of the lateral joint space with [id number] articulation. Mild narrowing of the medial and anterior joint spaces. Degenerative osteophytes along the articular margins of all 3 compartments. No fracture or dislocation. SOFT TISSUES:No visible soft tissue swelling. EFFUSION:None visible. OTHER: Negative. XR/XR knee RT 4V IMPRESSION: 1. Marked degenerative joint disease, grossly stable. 2. No appreciable acute abnormality. Electronically authenticated by: TOMER WYLIE Date: 11/17/2023 06:17
--- OUTSIDE RECORDS SUMMARY | 2023-11-15 12:04 | XMS_ITS | CCD ---
Author Organization [facility] CliniSyfl Care Team Providers Care Ham Sawyer Name Role Phone JI FERRERA JR Referring [...] HOY ., DR RAMOS Primary Care Unavailable TIMMIS, DR WORKMAN Attending Unavailable HOY ., DR RAMOS Primary Care Unavailable MISC, DR MOSQUERA Admitting Unavailable MISC, DR MOSQUERA Consulting Unavailable MISC, DR MOSQUERA Attending Unavailable ZIEBER, DR SHAQ Butts Consulting Unavailable REGULO, ANETTE A Attending Unavailable HOY, RACHEL M [...] OBULINon 08-12-2022 Thyroglobulin Antibody <1.0 Normal 0.0-0.9 [facility] Comment on above: Result Comment: Thyr oglobulin Antibody measured by Antonio Bard Methodology Performed By: #### T HYGIMA #### [facility] [address] [address] [address] Aung Mohamud Thyroglobulin by CUONG 0.1 ng/mL Critically low 1.5-38.5 [facility] Comment on above: Result Comment: Acco rding [...] 0.1 ng/mL . Thyroglobulin measured by Antonio Bard Immunometric Assay Performed By: #### T HYGIMA #### [facility] [address] [address] LUNG CANCER SCREENINGon [...] by: SHAQ OSORIO Date: 2022-08-11 14:16 Normal [facility] TSHon 08-11-2022 TSH 0.766 uIU/mL Normal 0.358-3.740 [facility] Comment on above: Performed By: #### T SH #### [facility] [address] [place] [address] Dr. Aung Mohamud XR DEXA BONE DENSITYon [...] SHAQ OSORIO Date: 2022-08-11 13:42 Normal [facility] INSULINon 07-23-2022 Insulin 7.2 uIU/mL Normal 2.6-24.9 [facility] Comment on above: Performed By: #### I NSULIN #### [facility] [address] [place] [address] Dr. Aung Mohamud MG MAMM SCREEN 3D GALINA CADon 07-23-2022 MG MAMM SCREEN 3D GALINA CAD Patient: MELISSA MAYFIELD I. Exam Date: 07/23/2022 : 1955 Gender:F Ordering : DR RACHEL CARVAJAL . Admission #: [id number] Family : Order #: [id number] CLICK HERE TO VIEW EXAM RADIOLOGY REPORT [...] colon cancer at age 64. LOCATION: [facility] BREAST COMPOSITION: Extremely dense, which lowers [...] M.D. on 07/24/2022 at 07:53 Normal [facility] CBC AUTO DIFFon 07-22-2022 BASO # 0.0 103/ul Normal 0.0-0.1 [facility] Comment on above: Performed By: #### C BC #### [facility] [address] [address] [address] Aung Mohamud Basophils/100 WBC (Bld) 0.2 % Normal 0.2-2.0 [facility] Comment on above: Performed By: #### C BC #### [facility] [address] [address] [address] Aung Mohamud EO # 0.1 103/ul Normal 0.0-0.7 [facility] Comment on above: Performed By: #### C BC #### [facility] [address] [address] [address] Aung Mohamud Eosinophils/100 WBC (Bld) 2.4 % Normal 0.9-7.0 [facility] Comment on above: Performed By: #### C BC #### [facility] [address] [address] [address] Aung Mohamud Erythrocyte distribution width (RBC) [Ratio] 14.1 % Normal 11.0-15.0 [facility] Comment on above: Performed By: #### C BC #### [facility] [address] [place] [address] Dr. Aung Mohamud Hematocrit (Bld) [Volume fraction] 43.3 % Normal 36.0-48.0 [facility] Comment on above: Performed By: #### C BC #### [facility] [address] [place] [address] Dr. Aung Mohamud Hemoglobin (Bld) [Mass/Vol] 14.5 g/dL Normal 12.0-16.0 [facility] Comment on above: Performed By: #### C BC #### [facility] [address] [place] [address] Dr. Aung Mohamud IG # 0.02 10e3/ul Normal 0.00-0.03 [facility] Comment on above: Performed By: #### C BC #### [facility] [address] [place] [address] Dr. Aung Mohamud IG % 0.3 % Normal 0.0-0.5 [facility] Comment on above: Performed By: #### C BC #### [facility] [address] [place] [address] Dr. Aung Mohamud LYMPH # 1.5 103/ul Normal 1.2-3.8 [facility] Comment on above: Performed By: #### C BC #### [facility] [address] [place] [address] Dr. Aung Mohamud Lymphocytes/100 WBC (Bld) 24.6 % Normal 20.5-60.0 [facility] Comment on above: Performed By: #### C BC #### [facility] [address] [place] [address] Dr. Aung Mohamud MANUAL DIFF REQ NO Normal [facility] Comment on above: Performed By: #### C BC #### [facility] [address] [place] [address] Dr. Aung Mohamud MCH (RBC) [Entitic mass] 31.1 pg Normal 26.7-34.0 [facility] Comment on above: Performed By: #### C BC #### [facility] [address] [address] [address] Aung Mohamud MCHC (RBC) [Mass/Vol] 33.5 g/dL Normal 29.9-35.2 [facility] Comment on above: Performed By: #### C BC #### [facility] [address] [place] [address] Dr. Aung Mohamud MCV (RBC) [Entitic vol] 92.9 fL Normal 81.0-99.0 [facility] Comment on above: Performed By: #### C BC #### [facility] [address] [place] [address] Dr. Aung Mohamud MONO # 0.3 103/ul Normal 0.3-0.8 [facility] Comment on above: Performed By: #### C BC #### [facility] [address] [place] [address] Dr. Aung Mohamud Monocytes/100 WBC (Bld) 4.9 % Normal 1.7-12.0 [facility] Comment on above: Performed By: #### C BC #### [facility] [address] [place] [address] Dr. Aung Mohamud NEUT # 4.0 103/ul Normal 1.4-6.5 [facility] Comment on above: Performed By: #### C BC #### [facility] [address] [place] [address] Dr. Aung Mohamud Neutrophils/100 WBC (Bld) 67.6 % Normal 43.0-75.0 [facility] Comment on above: Performed By: #### C BC #### [facility] [address] [place] [address] Dr. Aung Mohamud Platelet mean volume (Bld) [Entitic vol] 10.2 fL Normal 9.5-13.5 [facility] Comment on above: Performed By: #### C BC #### [facility] [address] [place] [address] Dr. Aung Mohamud PLT 333 103/ul Normal 150-450 [facility] Comment on above: Performed By: #### C BC #### [facility] [address] [address] [address] Aung Mohamud RBC 4.66 106/ul Normal 4.20-5.40 [facility] Comment on above: Performed By: #### C BC #### [facility] [address] [address] [address] Aung Mohamud WBC 5.9 103/ul Normal 4.0-11.0 [facility] Comment on above: Performed By: #### C BC #### [facility] [address] [address] [address] Aung Mohamud FREE THYROXINE INDEX T7on FTI 5.00 Critically high 1.30-4.50 [facility] Comment on above: Performed By: #### L IPID, T7, CMP, TSH ####[facility] [address] [address]Dr. Aung Mohamud T3U 37.0 % Normal 30.0-39.0 [facility] Comment on above: Performed By: #### L IPID, T7, CMP, TSH ####[facility] [address] [id number]. Aung Mohamud T4 [Mass/Vol] 13.50 ug/dL Normal 4.80-13.90 [facility] Comment on above: Performed By: #### L IPID, T7, CMP, TSH ####[facility] [address] [address]Dr. Aung Mohamud GLYCOHEMOGLOBIN A1Con 2022 ADA RECOMMENDATION SEE BELOW Normal [facility] Comment on above: Result Comment: ADA RECOMMENDED LIMIT 4.0 - 6.0 ADA THERAPEUTIC TARGET < 7.0 ACTION SUGGESTED > 7.0 Performed By: #### A 1C #### [facility] [address] [address] [address] Aung Mohamud Glucose [Mass/Vol] 117 mg/dL Normal [facility] Comment on above: Performed By: #### A 1C #### [facility] [address] [address] [address] Aung Mohamud HbA1c (Bld) [Mass fraction] 5.7 % Normal 4.5-6.2 [facility] Comment on above: Performed By: #### A 1C #### [facility] [id number] Aung Mohamud IRONon 07-22-2022 Iron [Mass/Vol] 118.0 ug/dL Normal 50.0-170.0 [facility] Comment on above: Performed By: #### V ITAD, IRON #### [facility] [id number] Aung Mohamud LIPID PROFILEon 07-22-2022 CHOL-HDL RATIO NORM SEE BELOW Normal [facility] Comment on above: Result Comment: 3.3 - 4.4 LOW RISK 4.4 - 7.1 AVERAGE RISK 7.1 - 11.0 MODERATE RISK >11.0 HIGH RISK Performed By: #### L IPID, T7, CMP, TSH ####[facility] [address] [id number]. Aung Mohamud Cholesterol [Mass/Vol] 209 mg/dL Critically high <=200 [facility] Comment on above: Performed By: #### L IPID, T7, CMP, TSH ####[facility] [address] [address]Dr. Aung Mohamud Cholesterol in HDL [Mass/Vol] 66 mg/dL Critically high 40-60 [facility] Comment on above: Performed By: #### L IPID, T7, CMP, TSH ####[facility] [address] [id number]. Aung Mohamud Cholesterol in LDL [Mass/Vol] 118.8 mg/dL Normal [facility] Comment on above: Performed By: #### L IPID, T7, CMP, TSH ####[facility] [address] [id number]. Aung Mohamud Cholesterol.total/Cho lesterol in HDL [Mass ratio] 3.2 {ratio} Normal [facility] Comment on above: Performed By: #### L IPID, T7, CMP, TSH ####[facility] [address] [id number]. Aung Mohamud HDL NORMAL > or = 60 mg/dl - LOW CARDIOVASCULAR RISK <40 mg/dl - HIGH CARDIOVASCULAR RISK Normal [facility] Comment on above: Performed By: #### L IPID, T7, CMP, TSH ####[facility] [address] [address]Dr. Aung Mohamud LDL CALC NORMAL SEE BELOW Normal [facility] Comment on above: Result Comment: <100 mg/dl OPTIMAL 100 - 129 mg/dl NEAR OR ABOVE OPTIMAL 130 - 159 mg/dl BORDERLINE HIGH 160 - 189 mg/dl HIGH >190 mg/dl VERY HIGH Performed By: #### L IPID, T7, CMP, TSH ####[facility] [address] [address]Dr. Aung Mohamud Triglyceride [Mass/Vol] 121 mg/dL Normal <=150 [facility] Comment on above: Performed By: #### L IPID, T7, CMP, TSH ####[facility] [address] [address]Dr. Aung Mohamud VLDL CALC 24.2 mg/dL Normal [facility] Comment on above: Performed By: #### L IPID, T7, CMP, TSH ####[facility] [address] [address]Dr. Aung Mohamud PROF 14(COMP METB)on 023 Albumin [Mass/Vol] 3.7 g/dL Normal 3.4-5.0 [facility] Comment on above: Performed By: #### L IPID, T7, CMP, TSH ####[facility] [address] [address]Dr. Aung Mohamud Albumin/Globulin [Mass ratio] 0.9 {ratio} Normal [facility] Comment on above: Performed By: #### L IPID, T7, CMP, TSH ####[facility] [address] [address]Dr. Aung Mohamud ALP [Catalytic activity/Vol] 171 U/L Critically high 46-116 [facility] Comment on above: Performed By: #### L IPID, T7, CMP, TSH ####[facility] [address] [address]Dr. Aung Mohamud ALT [Catalytic activity/Vol] 16 U/L Normal 14-59 [facility] Comment on above: Performed By: #### L IPID, T7, CMP, TSH ####[facility] [address] [address]Dr. Aung Mohamud Anion gap [Moles/Vol] 10.9 mmol/L Normal [facility] Comment on above: Performed By: #### L IPID, T7, CMP, TSH ####[facility] [address] [address]Dr. Aung Mohamud AST [Catalytic activity/Vol] 18 U/L Normal 15-37 [facility] Comment on above: Performed By: #### L IPID, T7, CMP, TSH ####[facility] [address] [address]Dr. Rosalinaharvey Mohamud Bilirubin [Mass/Vol] 0.3 mg/dL Normal 0.2-1.0 [facility] Comment on above: Performed By: #### L IPID, T7, CMP, TSH ####[facility] [address] [place], [place] [address]Dr. Rosalinaharvey Mohamud Calcium [Mass/Vol] 9.4 mg/dL Normal 8.5-10.1 [facility] Comment on above: Performed By: #### L IPID, T7, CMP, TSH ####[facility] [address] [address]Dr. Aung Mohamud Chloride [Moles/Vol] 103 mmol/L Normal 98-107 [facility] Comment on above: Performed By: #### L IPID, T7, CMP, TSH ####[facility] [address] [place], [place] [address]Dr. Aung Mohamud CO2 [Moles/Vol] 27.8 mmol/L Normal 21.0-32.0 [facility] Comment on above: Performed By: #### L IPID, T7, CMP, TSH ####[facility] [address] [address]Dr. Aung Mohamud Creatinine [Mass/Vol] 0.71 mg/dL Normal 0.55-1.02 [facility] Comment on above: Performed By: #### L IPID, T7, CMP, TSH ####[facility] [address] [address]Dr. Aung Mohamud EGFR-AF BOTSWANAN >60 Normal >=60 [facility] Comment on above: Performed By: #### L IPID, T7, CMP, TSH ####[facility] [address] [address]Dr. Aung Mohamud EGFR-NON AF BOTSWANAN >60 Normal >=60 [facility] Comment on above: Performed By: #### L IPID, T7, CMP, TSH ####[facility] [address] [address]Dr. Aung Mohamud Globulin (S) [Mass/Vol] 4.3 g/dL Normal [facility] Comment on above: Performed By: #### L IPID, T7, CMP, TSH ####[facility] [address] [place], [place] [address]Dr. Aung Mohamud Glucose [Mass/Vol] 91 mg/dL Normal 74-106 [facility] Comment on above: Performed By: #### L IPID, T7, CMP, TSH ####[facility] [address] [address]Dr. Aung Mohamud Potassium [Moles/Vol] 3.7 mmol/L Normal 3.5-5.1 [facility] Comment on above: Performed By: #### L IPID, T7, CMP, TSH ####[facility] [address] [address]Dr. Aung Mohamud Protein [Mass/Vol] 8.0 g/dL Normal 6.4-8.2 [facility] Comment on above: Performed By: #### L IPID, T7, CMP, TSH ####[facility] [address] [address]Dr. Rosalinaharvey Mohamud Sodium [Moles/Vol] 138 mmol/L Normal 136-145 [facility] Comment on above: Performed By: #### L IPID, T7, CMP, TSH ####[facility] [address] [id number]. Aung Mohamud Urea nitrogen [Mass/Vol] 13.0 mg/dL Normal 7.0-18.0 [facility] Comment on above: Performed By: #### L IPID, T7, CMP, TSH ####[facility] [address] [id number]. Aung Mohamud Urea nitrogen/Creatinine [Mass ratio] 18.3 mg/mg Normal [facility] Comment on above: Performed By: #### L IPID, T7, CMP, TSH ####[facility] [address] [address]Dr. Aung Mohamud TSHon 07-22-2022 TSH 0.706 uIU/mL Normal 0.358-3.740 [facility] Comment on above: Performed By: #### L IPID, T7, CMP, TSH ####[facility] [address] [address]Dr. Aung Mohamud VITAMIN D 25 OHon 07-22-2022 VIT D 25-OH 10.2 ng/mL Normal [facility] Comment on above: Performed By: #### V JOSIE IRON #### [facility] [address] [address] [address] Aung Mohamud VIT D RANGES SEE BELOW Normal [facility] Comment on above: Result Comment: <20 ng/mL Vit D deficient 20 - <30 ng/mL Vit D insufficient 30 - 100 ng/mL Vit D sufficient >100 ng/mL Potential Toxicity Performed By: #### V JOSIE IRON #### [facility] [id number] Aung Mohamud Thyroid Stim. Horm.on 2021 Thyroid Stim. Horm. 0.43 uIU/mL Normal 0.30-5.00 [facility] Comment on above: Performed By: #### T SH #### [facility] [address] [place], [place] [id number] Accountant Budget: Silas Dia MD NOVEL CORONAVIRUS NASOPHARYN GEAL - [facility] SPECIMEN ONLYon 09-16-2020 SARS-CoV-2 (COVID-19) RNA JOSE ROBERTO+probe Ql (Unsp spec) Not detected Normal NOT DETECTED [facility] Comment on above: Order Comment: Viral transport media - Collection must be done while wearing N-95 mask, eye protection, gown and gloves. Please label ALL specimens as 2019-nCoV rule out and deliver by hand. This test was performed using [employer] and has been approved as Emergency Use Authorization (EUA) for the qualitative detection of SARS-CoV-2 nucleic acid. Result Comment: [facility] Negative results do not preclude [...] or clinically deteriorating. Performed By: #### L AWMHI5SSQO #### [facility] (DEFAULT) [address] [place] [address] Outside Colonoscopyon 2020 Outside Colonoscopy [id number] C#1.00CD:127 Normal [facility] Lab Reportson 06-24-2020 Lab Reports [id number]#1.00CD:127 Normal [facility] Provider Letter FTMCon 06-21 Provider Letter [facility] Rachel Carvajal, [address] [place] [address] [place] [address] Re: MELISSA MAYFIELD Date of : 1955 Thank you for your referral of Melissa Mayfield who was seen on consultation on 2020, for positive occult stool. A colonoscopy is planned for further evaluation. I have enclosed my consultation notes for your review. I will be happy to follow Melissa should her symptoms persist. Sincerely, Hernán Raymundo MD General Surgery Normal [facility] Consent for Procedure/Surger yon 06-19-2020 Consent for Procedure/Surgery [id number] 86#1.00CD:127 Normal [facility] Facesheeton 06-19-2020 Facesheet [id number] 37#1.00CD:127 Normal [facility] Ambulatory Clinical Summaryo n 06-18-2020 Ambulatory Clinical Summary {[id number]}CD:[id number] Normal [facility] General Surgery Office/Clini c Noteon 06-18-2020 [...] 06/18/2020 Family History Hypertension: Mother and Father. [facility] Comment on above: Result Comment: Elec tronically Signed By: DENIZ STRATTON, Hernán Buchanan\Date and Time Signed: 06/18/20 15:05 EST Physician Referralon 021 Physician Referral [id number]#1.00CD:127 [facility] Encounters Encounter Date Encounter Type Care Provider Facility Start: 08-31-2023 [facility] Start: 08-31-2023 End: 09-01-2023 ambulatory [facility] Start: 04-28-2023 End: 04-28-2023 ambulatory ANETTE RAJPUT Not Available Start: 10-01-[address] DOCTOR DELAROSA Facility :[facility] Start: 08-11-2022 End: 08-12-[address] RACHEL CARVAJAL . Facility:[facility] Start: 07-23-2022 End: 07-24-[address] RACHEL CARVAJAL . Facility:[facility] Start: 07-22-2022 End: 07-23-[address] RACHEL CARVAJAL . Facility:[facility] Start: 11-19-2021 End: 11-20-2021 ambulatory JI FERRERA JR [facility] Start: 11-14-[address] JI Arreguin ty:[facility] Payers Date Payer Category Payer Unknown [id number] 2019 Unknown [id number] 1957 Medicare [id number] 1957 Self-pay 1957 Unknown [id number] 1955 Unknown [id number] 2.16.8 [id number] 1955 Unknown [id number] 2.16.84 0.1.570030.3.579.2.593 1955 Unknown [id number] 2.16.84 0.1.628292.3.579.2.593 1955 Unknown [id number] 2.16.84 0.1.562278.3.579.2.593 1955 Unknown [id number] 2.16.84 0.1.465912.3.579.2.593 1955 Unknown [id number] 2.16.84 0.1.010193.3.579.2.593 1955 Unknown [id number] 2.16.84 0.1.928668.3.579.2.593 1955 Unknown [id number] 2.16.840 .1.624284.3.579.2.1259 1955 Unknown [id number] 2.16.8 40.1.251679.3.579.2.1286 1955 Unknown [id number] 2.16.8 40.1.396509.3.579.2.1286 1955 Unknown [id number] 2.16.8 40.1.561967.3.579.2.1286 1955 Unknown [id number] 2.16.8 40.1.143625.3.579.2.1286 Summary Purpose Family History No Family History [...] and content) DATE CREATED AUTHOR 07/13/2020 [facility] DATE CREATED AUTHOR AUTHOR'S ORGANIZ ATION 09/17/2020 [facility] DATE CREATED AUTHOR AUTHOR'S ORGANIZ ATION 11/20/2021 [facility] DATE CREATED AUTHOR AUTHOR'S ORGANIZ ATION 09/28/2022 [facility] DATE CREATED AUTHOR AUTHOR'S ORGANIZ ATION 04/30/2023 [facility] DATE CREATED AUTHOR AUTHOR'S ORGANIZ ATION 09/01/2023 [facility] DATE CREATED AUTHOR AUTHOR'S ORGANIZ ATION 09/01/2023 [facility] FOR RECORDS PERTAINING TO PATIENTS [...] BE BASED ON THE PRIMARY CLINICAL RECORDS. [facility] [employer] [facility]. provides no warranty or guarantee of the accuracy or completeness of information in this document.
== END 2023-11-15 11:55 | disposition home or self-care (01) ==
LOC: EC 11:54
PROVIDERS: PCP Family Medicine; Visit Provider Orthopaedic Surgery
DX: S83.411A Sprain of medial collateral ligament of right knee, initial encounter (principal); M17.11 Unilateral primary osteoarthritis, right knee
CPT/HCPCS: 73564

== ENCOUNTER 2024-01-25 13:02 | Outpatient (OUT) | payer MEDICARE, OTHER, SELFPAY ==
--- NOTE | 2024-01-25 13:31 | US_ITS ---
The [address] [address] Patient Name: ANGEL ANGEL MRN: [id number] date: 1955 Sex: F Assigned Patient Location: US Current Patient Location: Accession/Order Number: [id number] Exam Date: 01/25/2024 13:32 Report Date: 01/26/2024 16:10 At the request of: NON-STAFF PHYSICIAN Procedure: US soft tissue head and neck EXAM: US soft tissue head and neck HISTORY: papillary thyroid carcinoma COMPARISON: 08/16/2023 TECHNIQUE: Grayscale and color ultrasound FINDINGS: Identified in the right thyroid bed is a 1.2 x 0.5 x 0.6 cm area of soft tissue attenuation Identified in the left thyroid bed is a 1.0 x 0.5 x 0.6 cm area of soft tissue attenuation US/US soft tissue head and neck IMPRESSION: Soft tissue in the thyroid bed, post surgical change versus recurrent/residual thyroid tissue. Stable from the prior exam Electronically authenticated by: MARI TANNER Date: 01/26/2024 16:10
[2024-01-27 09:13] LABS: Thyroglobulin Antibody <1.0 IU/mL (0.0-0.9)
== END 2024-01-25 13:03 | disposition home or self-care (01) ==
PROVIDERS: PCP Family Medicine
DX: C73 Malignant neoplasm of thyroid gland (principal); Z08 Encounter for follow-up examination after completed treatment for malignant neoplasm; Z85.850 Personal history of malignant neoplasm of thyroid; Z92.3 Personal history of irradiation
CPT/HCPCS: 36415; 76536; 84439; 84443; 86800

== ENCOUNTER 2024-06-16 15:18 | Outpatient (OUT) | payer MEDICARE, OTHER, SELFPAY ==
--- OUTSIDE RECORDS SUMMARY | 2024-06-16 15:27 | XMS_ITS | CCD ---
Author Organization [facility] Care Team Providers Care House Calls Nurse Practitioner Name Role Phone FITOY ., DR RAMOS Admitting Unavailable HOY ., [...] Unavailable ZIEBER, DR SHAQ Butts Consulting Unavailable ANETTE RAJPUT Attending Unavailable Rachel Carvajal MD Primary Care Provider [phone] FITOY RACHEL M Referring Unavailable HOY, RACHEL M Primary Care Unavailable HOY, RACHEL M Referring Unavailable HOY, RACHEL M Primary Care Unavailable HOY, RACHEL M Referring Unavailable HOY, RACHEL M Primary Care Unavailable HOY, RACHEL M Referring Unavailable HOY, RACHEL M Primary Care Unavailable HOY, RACHEL M Referring Unavailable HOY, RACHEL M Primary Care Unavailable Rachel Carvajal MD Primary Care Provider [phone] HSAQ CAHVEZ Referring Unavailable HOY, RACHEL M Primary Care Unavailable SHAQ CHAVEZ Referring Unavailable HOY, RACHEL M Primary Care Unavailable SEALESHAQ Referring Unavailable HOY, RACHEL M Primary Care Unavailable SEALE, SHAQ Hudson Referring Unavailable HOY, RACHEL M Primary Care Unavailable SEALE, SHAQ Hudson Referring Unavailable HOY, RACHEL M Primary Care Unavailable HOY, RACHEL M Primary Care Unavailable CHAVEZSHAQ Referring Unavailable CHAVEZSHAQ Referring Unavailable HOY, RACHEL M Primary Care Unavailable SEALE, SHAQ Hudson Referring Unavailable HOY, RACHEL M Primary Care Unavailable SEALE, SHAQ Hudson Referring Unavailable HOY, RACHEL M Primary Care Unavailable SEALE, SHAQ Hudson Referring Unavailable HOY, RACHEL M Primary Care Unavailable SEALE, SHAQ Hudson Referring Unavailable HOY, RACHEL M Primary Care Unavailable SEALE, SHAQ Hudson Referring Unavailable HOY, RACHEL M Primary Care Unavailable SEALE, SHAQ Hudson Referring Unavailable HOY, RACHEL M Primary Care Unavailable SEALE, SHAQ Hudson Referring Unavailable HOY, RACHEL M Primary Care Unavailable SEALESHAQ Referring Unavailable HOY, RACHEL M Primary Care Unavailable SEALE, SHAQ Hudson Referring Unavailable HOY, RACHEL M Primary Care Unavailable SEALE, SHAQ Hudson Referring Unavailable HOY, RACHEL M Primary Care Unavailable SEALE, SHAQ Hudson Referring Unavailable HOY, RACHEL M Primary Care Unavailable Medications Current Medications Medication Drug Class(es) Dates Sig (Normalized) Sig (Original) alendronic acid 70 mg oral tablet (2 sources) Bisphosphonate Start: 08-12-2022 alendronate (FOSAMAX) 70 mg tablet 1 tablet (70 mg total) once a week. 08/12/2022 Active cetirizine hydrochloride 10 mg oral tablet (2 sources) Histamine-1 Receptor Antagonist cetirizine (ZyrTEC) 10 mg tablet Take by mouth 2 (two) times a day. Active cholecalciferol 0.05 mg oral tablet (2 sources) Vitamin D cholecalciferol, vitamin D3, 2,000 units tablet Take by mouth daily. Active famotidine 20 mg oral tablet (15 sources) Histamine-2 Receptor Antagonist take 1 tablet by mouth once daily famotidine (PEPCID) 20 MG tablet Take 20 mg by mouth daily Active levothyroxine sodium 0.088 mg oral tablet (2 sources) l-Thyroxine Start: 07-04-2021 levothyroxine (SYNTHROID, LEVOTHROID) 88 MCG tablet Take 75 mcg by mouth in the morning. Dosage changed from 88 to 75. 07/04/2021 Active liothyronine sodium 0.025 mg oral tablet (15 sources) l-Triiodothyronine Start: 08-21-2020 take 1 tablet by mouth three times daily liothyronine (CYTOMEL) 25 MCG tablet Take 25 mcg by mouth 3 times daily 08/21/2020 Active meloxicam 15 mg oral tablet (2 sources) Nonsteroidal Anti-inflammatory Drug Start: 01-13-2024 take 1 tablet by mouth in the morning MOBIC 15 mg tablet Take 1 tablet (15 mg total) by mouth in the morning. 01/13/2024 Active Problems Active Problems Problem Classification Problem Date Documented Da te Episodic/Chronic Cancer of thyroid (20 sources) Papillary thyroid carcinoma; Translations: [Malignant neoplasm of thyroid gland] Onset: 09-03-2020 09-15-2020 Chronic Chronic obstructive pulmonary disease and bronchiectasis [...] unspecified; Translations: [HYPERLIPIDEMIA UNSPECIFIED] Onset: 07-25-2022 Chronic Nutritional deficiencies (1 source) Vitamin D deficiency, unspecified; Translations: [VITAMIN D DEFICIENCY UNSPECIFIED] Onset: 07-25-2022 Chronic Osteoporosis (1 source) Age-related osteoporosis without current pathological fracture; Translations: [AGE-REL OSTEOPOR W/O CURR PATH FX] Onset: 08-12-2022 Chronic Other connective tissue disease (2 sources) Other shoulder lesions, right shoulder; Translations: [Other shoulder lesions, right shoulder] Onset: 03-28-2024 Episodic Other connective tissue disease (2 sources) Bursitis of right shoulder; Translations: [Bursitis of right shoulder] Onset: 03-28-2024 Episodic Other screening for suspected conditions (not mental [...] MALIG NEOPLASM DIGESTIV ORGN] Onset: 07-28-2022 Episodic Substance-related disorders (17 sources) Nicotine dependence, cigarettes, uncomplicated; Translations: [Tobacco dependence caused by cigarettes] Onset: 07-30-2020 09-15-2020 Chronic Past or Other Problems Problem Classification Problem Date Documented Da te Episodic/Chronic Acute and unspecified renal failure (15 sources) Acute renal failure syndrome; Translations: [Acute kidney failure, unspecified] Onset: 09-15-2020 09-15-2020 Episodic Cancer of thyroid (6 sources) Personal history of malignant neoplasm of thyroid; Translations: [PERSONAL HX MALIG NEOPLASM THYROID] Onset: 11-14-2020 Episodic Fluid and electrolyte disorders (16 sources) Dehydration; Translations: [Hyperkalemia] Onset: 09-15-2020 09-15-2020 Episodic Mood disorders (2 sources) Mood disorders Onset: 09-04-2020 09-04-2020 Other aftercare (6 sources) Encounter for follow-up examination after completed treatment for malignant neoplasm; Translations: [ENC F/U EX AFTR CMPL TX MALIG NEOPL] Onset: 11-14-2020 Episodic Other aftercare (2 sources) History of malignant neoplasm of thyroid; Translations: [Encounter for follow-up examination after completed treatment for malignant neoplasm] Onset: 11-14-2020 11-14-2020 Episodic Other liver diseases (15 sources) Alkaline phosphatase raised; Translations: [Abnormal levels of other serum enzymes] Onset: 09-15-2020 09-15-2020 Episodic Residual codes; unclassified (1 source) Pain, unspecified; Translations: [Pain, unspecified] Onset: 08-31-2023 Episodic Residual codes; unclassified (1 source) Personal history of irradiation; Translations: [Personal history of irradiation] Onset: 11-14-2020 Episodic Urinary tract infections (15 sources) Acute cystitis; Translations: [Acute cystitis without hematuria] Onset: 09-15-2020 09-15-2020 Episodic Results Test Name Value Interpretation Reference Range Facility THYROGLOBULIN AB AND THYROGL OBULINon 08-12-2022 Thyroglobulin Antibody <1.0 Normal 0.0-0.9 [facility] Comment on above: Result Comment: Thyr oglobulin Antibody measured by Antonio Minden Methodology Performed By: #### T HYGIMA #### [facility] [address] [address] [address] Aung Mohamud Thyroglobulin by CUONG 0.1 ng/mL Critically low 1.5-38.5 [facility] Comment on above: Result Comment: Acco [...] 0.1 ng/mL . Thyroglobulin measured by Antonio Minden Immunometric Assay Performed By: #### T HYGIMA #### [facility] [address] [address] LUNG CANCER SCREENINGon [...] by: SHAQ OSORIO Date: 2022-08-11 14:16 Normal [facility] TSHon 08-11-2022 TSH 0.766 uIU/mL Normal 0.358-3.740 [facility] Comment on above: Performed By: #### T SH #### [facility] [address] [place] [address] Dr. Aung Mohamud XR DEXA BONE DENSITYon [...] SHAQ OSORIO Date: 2022-08-11 13:42 Normal [facility] INSULINon 07-23-2022 Insulin 7.2 uIU/mL Normal 2.6-24.9 [facility] Comment on above: Performed By: #### I NSULIN #### [facility] [address] [place] [address] Dr. Aung Mohamud MG MAMM SCREEN 3D GALINA CADon 07-23-2022 MG MAMM SCREEN 3D GALINA CAD Patient: MELISSA ANGEL I. Exam Date: 07/23/2022 : 1955 Gender:F Ordering : DR RACHEL CARVAJAL . Admission #: [id number] Family : Order #: [id number] CLICK HERE TO VIEW EXAM RADIOLOGY REPORT [...] colon cancer at age 64. LOCATION: [facility] BREAST COMPOSITION: Extremely dense, which lowers [...] M.D. on 07/24/2022 at 07:53 Normal [facility] CBC AUTO DIFFon 07-22-2022 BASO # 0.0 103/ul Normal 0.0-0.1 [facility] Comment on above: Performed By: #### C BC #### [facility] [address] [address] [address] Aung Mohamud Basophils/100 WBC (Bld) 0.2 % Normal 0.2-2.0 [facility] Comment on above: Performed By: #### C BC #### [facility] [address] [address] [address] Aung Mohamud EO # 0.1 103/ul Normal 0.0-0.7 [facility] Comment on above: Performed By: #### C BC #### [facility] [address] [address] [address] Aung Mohamud Eosinophils/100 WBC (Bld) 2.4 % Normal 0.9-7.0 [facility] Comment on above: Performed By: #### C BC #### [facility] [address] [address] [address] Aung Mohamud Erythrocyte distribution width (RBC) [Ratio] 14.1 % Normal 11.0-15.0 [facility] Comment on above: Performed By: #### C BC #### [facility] [address] [place] [address] Dr. Aung Mohamud Hematocrit (Bld) [Volume fraction] 43.3 % Normal 36.0-48.0 [facility] Comment on above: Performed By: #### C BC #### [facility] [address] [place] [address] Dr. Aung Mohamud Hemoglobin (Bld) [Mass/Vol] 14.5 g/dL Normal 12.0-16.0 [facility] Comment on above: Performed By: #### C BC #### [facility] [address] [place] [address] Dr. Aung Mohamud IG # 0.02 10e3/ul Normal 0.00-0.03 [facility] Comment on above: Performed By: #### C BC #### [facility] [address] [place] [address] Dr. Aung Mohamud IG % 0.3 % Normal 0.0-0.5 [facility] Comment on above: Performed By: #### C BC #### [facility] [address] [place] [address] Dr. Aung Mohamud LYMPH # 1.5 103/ul Normal 1.2-3.8 [facility] Comment on above: Performed By: #### C BC #### [facility] [address] [place] [address] Dr. Aung Mohamud Lymphocytes/100 WBC (Bld) 24.6 % Normal 20.5-60.0 [facility] Comment on above: Performed By: #### C BC #### [facility] [address] [place] [address] Dr. Aung Mohamud MANUAL DIFF REQ NO Normal [facility] Comment on above: Performed By: #### C BC #### [facility] [address] [place] [address] Dr. Aung Mohamud MCH (RBC) [Entitic mass] 31.1 pg Normal 26.7-34.0 [facility] Comment on above: Performed By: #### C BC #### [facility] [address] [address] [address] Aung Mohamud MCHC (RBC) [Mass/Vol] 33.5 g/dL Normal 29.9-35.2 [facility] Comment on above: Performed By: #### C BC #### [facility] [address] [place] [address] Dr. Aung Mohamud MCV (RBC) [Entitic vol] 92.9 fL Normal 81.0-99.0 [facility] Comment on above: Performed By: #### C BC #### [facility] [address] [place] [address] Dr. Aung Mohamud MONO # 0.3 103/ul Normal 0.3-0.8 [facility] Comment on above: Performed By: #### C BC #### [facility] [address] [place] [address] Dr. Aung Mohamud Monocytes/100 WBC (Bld) 4.9 % Normal 1.7-12.0 [facility] Comment on above: Performed By: #### C BC #### [facility] [address] [place] [address] Dr. Aung Mohamud NEUT # 4.0 103/ul Normal 1.4-6.5 [facility] Comment on above: Performed By: #### C BC #### [facility] [address] [place] [address] Dr. Aung Mohamud Neutrophils/100 WBC (Bld) 67.6 % Normal 43.0-75.0 [facility] Comment on above: Performed By: #### C BC #### [facility] [address] [place] [address] Dr. Aung Mohamud Platelet mean volume (Bld) [Entitic vol] 10.2 fL Normal 9.5-13.5 [facility] Comment on above: Performed By: #### C BC #### [facility] [address] [place] [address] Dr. Aung Mohamud PLT 333 103/ul Normal 150-450 [facility] Comment on above: Performed By: #### C BC #### [facility] [address] [address] [address] Aung Mohamud RBC 4.66 106/ul Normal 4.20-5.40 [facility] Comment on above: Performed By: #### C BC #### [facility] [address] [address] [address] Aung Mohamud WBC 5.9 103/ul Normal 4.0-11.0 [facility] Comment on above: Performed By: #### C BC #### [facility] [address] [address] [address] Aung Mohamud FREE THYROXINE INDEX T7on FTI 5.00 Critically high 1.30-4.50 [facility] Comment on above: Performed By: #### L IPID, T7, CMP, TSH ####[facility] [address] [address]Dr. Aung Mohamud T3U 37.0 % Normal 30.0-39.0 [facility] Comment on above: Performed By: #### L IPID, T7, CMP, TSH ####[facility] [address] [id number]. Aung Mohamud T4 [Mass/Vol] 13.50 ug/dL Normal 4.80-13.90 [facility] Comment on above: Performed By: #### L IPID, T7, CMP, TSH ####[facility] [address] [address]Dr. Aung Mohamud GLYCOHEMOGLOBIN A1Con 2022 ADA RECOMMENDATION SEE BELOW Normal [facility] Comment on above: Result Comment: ADA RECOMMENDED LIMIT 4.0 - 6.0 ADA THERAPEUTIC TARGET < 7.0 ACTION SUGGESTED > 7.0 Performed By: #### A 1C #### [facility] [address] [address] [address] Aung Mohamud Glucose [Mass/Vol] 117 mg/dL Normal [facility] Comment on above: Performed By: #### A 1C #### [facility] [address] [address] [address] Aung Mohamud HbA1c (Bld) [Mass fraction] 5.7 % Normal 4.5-6.2 [facility] Comment on above: Performed By: #### A 1C #### [facility] [id number] Aung Mohamud IRONon 07-22-2022 Iron [Mass/Vol] 118.0 ug/dL Normal 50.0-170.0 [facility] Comment on above: Performed By: #### V ITAD, IRON #### [facility] [id number] Aung Mohamud LIPID PROFILEon 07-22-2022 CHOL-HDL RATIO NORM SEE BELOW Normal [facility] Comment on above: Result Comment: 3.3 - 4.4 LOW RISK 4.4 - 7.1 AVERAGE RISK 7.1 - 11.0 MODERATE RISK >11.0 HIGH RISK Performed By: #### L IPID, T7, CMP, TSH ####[facility] [address] [id number]. Aung Mohamud Cholesterol [Mass/Vol] 209 mg/dL Critically high <=200 [facility] Comment on above: Performed By: #### L IPID, T7, CMP, TSH ####[facility] [address] [address]Dr. Aung Mohamud Cholesterol in HDL [Mass/Vol] 66 mg/dL Critically high 40-60 [facility] Comment on above: Performed By: #### L IPID, T7, CMP, TSH ####[facility] [address] [id number]. Aung Mohamud Cholesterol in LDL [Mass/Vol] 118.8 mg/dL Normal [facility] Comment on above: Performed By: #### L IPID, T7, CMP, TSH ####[facility] [address] [id number]. Aung Mohamud Cholesterol.total/Cho lesterol in HDL [Mass ratio] 3.2 {ratio} Normal [facility] Comment on above: Performed By: #### L IPID, T7, CMP, TSH ####[facility] [address] [id number]. Aung Mohamud HDL NORMAL > or = 60 mg/dl - LOW CARDIOVASCULAR RISK <40 mg/dl - HIGH CARDIOVASCULAR RISK Normal [facility] Comment on above: Performed By: #### L IPID, T7, CMP, TSH ####[facility] [address] [address]Dr. Aung Mohamud LDL CALC NORMAL SEE BELOW Normal [facility] Comment on above: Result Comment: <100 mg/dl OPTIMAL 100 - 129 mg/dl NEAR OR ABOVE OPTIMAL 130 - 159 mg/dl BORDERLINE HIGH 160 - 189 mg/dl HIGH >190 mg/dl VERY HIGH Performed By: #### L IPID, T7, CMP, TSH ####[facility] [address] [address]Dr. Aung Mohamud Triglyceride [Mass/Vol] 121 mg/dL Normal <=150 [facility] Comment on above: Performed By: #### L IPID, T7, CMP, TSH ####[facility] [address] [address]Dr. Aung Mohamud VLDL CALC 24.2 mg/dL Normal [facility] Comment on above: Performed By: #### L IPID, T7, CMP, TSH ####[facility] [address] [address]Dr. Aung Mohamud PROF 14(COMP METB)on 023 Albumin [Mass/Vol] 3.7 g/dL Normal 3.4-5.0 [facility] Comment on above: Performed By: #### L IPID, T7, CMP, TSH ####[facility] [address] [address]Dr. Aung Mohamud Albumin/Globulin [Mass ratio] 0.9 {ratio} Normal [facility] Comment on above: Performed By: #### L IPID, T7, CMP, TSH ####[facility] [address] [address]Dr. Aung Mohamud ALP [Catalytic activity/Vol] 171 U/L Critically high 46-116 [facility] Comment on above: Performed By: #### L IPID, T7, CMP, TSH ####[facility] [address] [address]Dr. Aung Mohamud ALT [Catalytic activity/Vol] 16 U/L Normal 14-59 [facility] Comment on above: Performed By: #### L IPID, T7, CMP, TSH ####[facility] [address] [address]Dr. Aung Mohamud Anion gap [Moles/Vol] 10.9 mmol/L Normal [facility] Comment on above: Performed By: #### L IPID, T7, CMP, TSH ####[facility] [address] [address]Dr. Aung Mohamud AST [Catalytic activity/Vol] 18 U/L Normal 15-37 [facility] Comment on above: Performed By: #### L IPID, T7, CMP, TSH ####[facility] [address] [address]Dr. Rosalinaharvey Mohamud Bilirubin [Mass/Vol] 0.3 mg/dL Normal 0.2-1.0 [facility] Comment on above: Performed By: #### L IPID, T7, CMP, TSH ####[facility] [address] [place], [place] [address]Dr. Rosalinaharvey Mohamud Calcium [Mass/Vol] 9.4 mg/dL Normal 8.5-10.1 [facility] Comment on above: Performed By: #### L IPID, T7, CMP, TSH ####[facility] [address] [address]Dr. Aung Mohamud Chloride [Moles/Vol] 103 mmol/L Normal 98-107 [facility] Comment on above: Performed By: #### L IPID, T7, CMP, TSH ####[facility] [address] [place], [place] [address]Dr. Aung Mohamud CO2 [Moles/Vol] 27.8 mmol/L Normal 21.0-32.0 [facility] Comment on above: Performed By: #### L IPID, T7, CMP, TSH ####[facility] [address] [address]Dr. Aung Mohamud Creatinine [Mass/Vol] 0.71 mg/dL Normal 0.55-1.02 [facility] Comment on above: Performed By: #### L IPID, T7, CMP, TSH ####[facility] [address] [address]Dr. Aung Mohamud EGFR-AF LITHUANIAN >60 Normal >=60 [facility] Comment on above: Performed By: #### L IPID, T7, CMP, TSH ####[facility] [address] [address]Dr. Aung Mohamud EGFR-NON AF LITHUANIAN >60 Normal >=60 [facility] Comment on above: Performed By: #### L IPID, T7, CMP, TSH ####[facility] [address] [address]Dr. Aung Mohamud Globulin (S) [Mass/Vol] 4.3 g/dL Normal [facility] Comment on above: Performed By: #### L IPID, T7, CMP, TSH ####[facility] [address] [place], [place] [address]Dr. Aung Mohamud Glucose [Mass/Vol] 91 mg/dL Normal 74-106 [facility] Comment on above: Performed By: #### L IPID, T7, CMP, TSH ####[facility] [address] [address]Dr. Aung Mohamud Potassium [Moles/Vol] 3.7 mmol/L Normal 3.5-5.1 [facility] Comment on above: Performed By: #### L IPID, T7, CMP, TSH ####[facility] [address] [address]Dr. Aung Mohamud Protein [Mass/Vol] 8.0 g/dL Normal 6.4-8.2 [facility] Comment on above: Performed By: #### L IPID, T7, CMP, TSH ####[facility] [address] [address]Dr. Rosalinaharvey Mohamud Sodium [Moles/Vol] 138 mmol/L Normal 136-145 [facility] Comment on above: Performed By: #### L IPID, T7, CMP, TSH ####[facility] [address] [id number]. Aung Mohamud Urea nitrogen [Mass/Vol] 13.0 mg/dL Normal 7.0-18.0 [facility] Comment on above: Performed By: #### L IPID, T7, CMP, TSH ####[facility] [address] [id number]. Aung Mohamud Urea nitrogen/Creatinine [Mass ratio] 18.3 mg/mg Normal [facility] Comment on above: Performed By: #### L IPID, T7, CMP, TSH ####[facility] [address] [address]Dr. Aung Mohamud TSHon 07-22-2022 TSH 0.706 uIU/mL Normal 0.358-3.740 [facility] Comment on above: Performed By: #### L IPID, T7, CMP, TSH ####[facility] [address] [address]Dr. Aung Mohamud VITAMIN D 25 OHon 07-22-2022 VIT D 25-OH 10.2 ng/mL Normal [facility] Comment on above: Performed By: #### V JOSIE, IRON #### [facility] [address] [address] [address] Aung Mohamud VIT D RANGES SEE BELOW Normal [facility] Comment on above: Result Comment: <20 ng/mL Vit D deficient 20 - <30 ng/mL Vit D insufficient 30 - 100 ng/mL Vit D sufficient >100 ng/mL Potential Toxicity Performed By: #### V ITAD, IRON #### [facility] [address] [address] [address] Aung Mohamud NOVEL CORONAVIRUS NASOPHARYN GEAL - [facility] SPECIMEN ONLYon 09-16-2020 SARS-CoV-2 (COVID-19) RNA JOSE ROBERTO+probe Ql (Unsp spec) Not detected Normal NOT DETECTED [facility] Comment on above: Order Comment: Viral transport media - Collection must be done while wearing N-95 mask, eye protection, gown and gloves. Please label ALL specimens as 2019-nCoV rule out and deliver by hand. This test was performed using [employer] Mediated Amplification and has been approved as Emergency Use Authorization (EUA) for the qualitative detection of SARS-CoV-2 nucleic acid. Result Comment: [facility] Negative results do not preclude [...] or clinically deteriorating. Performed By: #### L [id number] #### [facility] (DEFAULT) [address] [place] [address] Outside Colonoscopyon 2020 Outside Colonoscopy [id number] C#1.00CD:127 [facility] Lab Reportson 06-24-2020 Lab Reports [id number] 9D#1.00CD:127 [facility] Provider Letter FTMCon 06-21 Provider Letter [facility] [facility] Rachel Carvajal, [address] [place] [address] Re: MELISSA ANGEL Date of : 1955 Thank you for your referral of Melissa Angel who was seen on consultation on 2020, for positive occult stool. A colonoscopy is planned for further evaluation. I have enclosed my consultation notes for your review. I will be happy to follow Melissa should her symptoms persist. Sincerely, Hernán Raymundo MD General Surgery [facility] Consent for Procedure/Surger yon 06-19-2020 Consent for Procedure/Surgery [id number]#1.00CD:127 [facility] Facesheeton 06-19-2020 Facesheet [id number] 37#1.00CD:127 Normal [facility] Ambulatory Clinical Summaryo n 06-18-2020 Ambulatory Clinical Summary {[id number] Normal [facility] General Surgery Office/Clini c Noteon 06-18-2020 General [...] 06/18/2020 Family History Hypertension: Mother and Father. [facility] Comment on above: Result Comment: Elec tronically Signed By: DENIZ STRATTON, Hernán Buchanan\Date and Time Signed: 06/18/20 15:05 EST Physician Referralon 021 Physician Referral [phone] [id number] [facility] Encounters Encounter Date Encounter Type Care Provider Facility Start: 05-04-2024 End: 05-04-2024 ambulatory [facility] Start: 05-04-2024 End: 05-04-2024 Subsequent hospital visit by physician Levi Armas PT [facility] Physical Therapy Comment on above: Arrived Start: 05-01-2024 End: 05-01-2024 ambulatory SHAQ NAJERALAND [facility] Start: 05-01-2024 End: 05-01-2024 Subsequent hospital visit by physician Maricel Horan PTA [facility] Physical Therapy Comment on above: Arrived Start: 04-27-2024 End: 04-27-2024 Orders Only Lida Baker [employer] L[employer]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 - Radiation Oncology Comment on above: Papillary thyroid ca rcinoma (CMS-HCC) (Primary Dx) Arrived Start: 04-26-2024 End: 05-09-2024 Telephone encounter Lidia Beckett [facility] - Radiation Oncology Start: 04-26-2024 End: 04-26-2024 ambulatory RACHEL M [facility] Start: 04-24-2024 End: 04-24-2024 [facility] Start: 04-24-2024 End: 04-24-2024 Subsequent hospital visit by physician Wendy Saha PTA [facility] Physical Therapy Comment on above: Arrived Start: 04-22-2024 ambulatory RACHEL oCx [facility] Start: 04-20-2024 End: 04-20-2024 [facility] Start: 04-20-2024 End: 04-20-2024 Subsequent hospital visit by physician Maricel Horan PTA [facility] Physical Therapy Comment on above: Arrived Start: 04-18-2024 End: 04-18-2024 ambulatory SHAQ [facility]AVE[facility] Start: 04-18-2024 End: 04-18-2024 Subsequent hospital visit by physician Paula Mccarty PTA [facility] Physical Therapy Comment on above: Arrived Start: 04-17-2024 [facility] Start: 04-11-2024 End: 04-11-2024 ambulatory SHAQ [facility]AVEZ [facility] Start: 04-11-2024 End: 04-11-2024 Subsequent hospital visit by physician Paula Mccarty PTA [facility] Physical Therapy Comment on above: Arrived Start: 04-10-2024 End: 04-10-2024 ambulatory SHAQ CHAVEZ [facility] Start: 04-10-2024 End: 04-10-2024 Subsequent hospital visit by physician Levi Armas PT [facility] Physical Therapy Comment on above: Arrived Start: 04-06-2024 End: 04-06-2024 ambulatory SHAQ CHAVEZ [facility] Start: 04-06-2024 End: 04-06-2024 Subsequent hospital visit by physician Henny Kohler PTA [facility] Physical Therapy Comment on above: Arrived Start: 04-03-2024 End: 04-03-2024 ambulatory SHAQ CHAVEZ [facility] Start: 04-03-2024 End: 04-03-2024 Subsequent hospital visit by physician Levi Armas PT [facility] Physical Therapy Comment on above: Arrived Start: 03-30-2024 End: 03-30-2024 [facility] Start: 03-30-2024 End: 03-30-2024 Subsequent hospital visit by physician Henny Kohler 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 [facility] Physical Therapy Comment on above: Arrived Start: 03-28-2024 End: 03-28-2024 [facility]ulatory [facility] Start: 03-28-2024 End: 03-28-2024 Subsequent hospital visit by physician Paula Mccarty 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 [facility] Physical Therapy Comment on above: Arrived Start: 03-24-2024 End: 03-24-2024 ambulatory SHAQ [facility] Start: 03-24-2024 End: 03-24-2024 Subsequent hospital visit by physician Bean Koenig 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 [facility] Physical Therapy Comment on above: Arrived Start: 03-22-2024 ambulatory SHAQ Hudson [facility] Start: 03-06-2024 End: 03-06-2024 ambulatory SHAQ [facility] Start: 03-06-2024 End: 03-06-2024 Subsequent hospital visit by physician Maricel Horan 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 [facility] Physical Therapy Comment on above: Arrived Start: 03-02-2024 End: 03-02-2024 ambulatory SHAQ [facility] Start: 02-29-2024 End: 02-29-2024 ambulatory RACHEL [facility] Start: 02-29-2024 End: 02-29-2024 Subsequent hospital visit by physician Levi Armas PT [facility] Physical Therapy Comment on above: Arrived Start: 08-31-2023 ambulatory [facility] Start: 08-31-2023 End: 08-31-2023 ambulatory [facility] Start: 04-28-2023 End: 04-28-2023 ambulatory ANETTE RAJPUT Not Available Start: 10-01-[address] DOCTOR CORLEY Facility :[facility] Start: 08-11-2022 End: 08-12-[address] RACHEL CARVAJAL . Facility:[facility] Start: 07-23-2022 End: 03-10-[address] RACHEL CARVAJAL . Facility:[facility] Start: 07-22-2022 End: 07-23-[address] RACHEL CARVAJAL . 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: Plan of Treatment Date Care Activity Detail Author Start: 02-10-2033 DTaP,Tdap and Td Vac cines (2 - Td or Tdap) DTaP,Tdap and Td Vaccines (2 - Td or Tdap) [facility] Start: 02-10-2033 DTaP/Tdap/Td vaccine (2 - Td or Tdap) DTaP/Tdap/Td vaccine (2 - Td or Tdap) [facility] Start: 01-16-2032 Respiratory Syncytia l Virus (RSV) or age 60 yrs+ (1 - 1-dose 75+ series) Respiratory Syncytial Virus (RSV) or age 60 yrs+ (1 - 1-dose 75+ series) [facility] Start: 04-26-2025 Adult BMI Screening Adult BMI Screen ing [facility] Start: 04-26-2025 Tobacco Screening Tobacco Screening [facility] Start: 11-10-2024 End: 11-10-2024 Patient encounter procedure 11/10/2024 1:30 PM EDT Appointment [facility] - Radiation Oncology [phone] [phone] [facility] - Radiation Oncology Start: 05-04-2024 End: 05-04-2024 Patient encounter procedure 05/04/2024 2:15 PM EST [facility] [address] [place] [phone] Levi Armas, PT [facility] Physical Therapy Comment on above: [facility] Start: 05-01-2024 End: 05-01-2024 Patient encounter procedure 05/01/2024 3:00 PM EST Appointment [facility] Physical Therapy [address] [place] [phone] Maricel Horan PTA [facility] Physical Therapy Start: 04-27-2024 End: 04-27-2024 Patient encounter procedure 04/27/2024 2:15 PM EST Appointment [facility] [address] [place] [phone] Maricel Horan PTA [facility] Physical Therapy Start: 04-24-2024 End: 04-24-2024 [facility] Start: 04-20-2024 End: 04-20-2024 Patient encounter procedure 04/20/2024 2:15 PM EST Appointment [facility] [address] [place] [phone] Maricel Horan PTA [facility] Physical Therapy Start: 04-18-2024 End: 04-18-2024 Patient encounter procedure 04/18/2024 12:00 PM EST [facility]ment [facility] [address] [place] [phone] Paula Mccarty PTA [facility] Physical Therapy Start: 04-17-2024 End: 04-17-2024 Patient encounter procedure 04/17/2024 1:45 PM EST Appointment [facility] [address] [place] [phone] Paula Mccarty PTA [facility] Physical Therapy Start: 04-11-2024 End: 04-11-2024 Patient encounter procedure 04/11/2024 12:00 PM EST [facility]ment [facility] [address] [place] [phone] Paula Mccarty PTA [facility] Start: 04-10-2024 End: 04-10-2024 Patient encounter procedure 04/10/2024 12:15 PM EST Appointment [facility] [address] [place] [phone] Levi Armas, PT [facility] Physical Therapy Comment on above: [facility] Start: 04-06-2024 End: 04-06-2024 Patient encounter procedure 04/06/2024 12:30 PM EST [facility]ment [facility] [address] [place] [phone] Henny Kohler PTA [facility] Physical Therapy Start: 04-03-2024 End: 04-03-2024 Patient encounter procedure [facility] Start: 03-30-2024 End: 03-30-2024 [facility] Start: 03-28-2024 End: 03-28-2024 Patient encounter procedure 03/28/2024 2:45 PM EST [facility]ointment [facility] [address] [place] [phone] Paula Mccarty PTA [facility] Physical Therapy Start: 03-27-2024 End: 03-27-2024 Patient encounter procedure 03/27/2024 12:45 PM EST [facility]ointment [facility] [address] [place] [phone] Maricel Horan PTA [facility] Physical Therapy Start: 03-24-2024 End: 03-24-2024 Patient encounter procedure 03/24/2024 1:15 PM EST [facility]ointment [facility] [address] [place] [phone] Henny Kohler PTA [facility] Physical Therapy Start: 03-22-2024 End: 03-22-2024 Patient encounter procedure 03/22/2024 1:45 PM EST [facility]ointment [facility] [address] [place] [phone] Maricel Horan, REYES [facility] Physical Therapy Start: 03-06-2024 End: 03-06-2024 Patient encounter procedure 03/06/2024 12:00 PM EDT Appointment [facility] [address] [place] [phone] Maricel Horan, REYES [facility] Physical Therapy Start: 03-02-2024 End: 03-02-2024 Patient encounter procedure 03/02/2024 3:45 PM EDT [facility]ment [facility] [address] [place] [phone] Maricel Horan, REYES [facility] Physical Therapy Start: 03-02-2024 Annual Wellness Visi t (Medicare) Annual Wellness Visit (Medicare) [facility] Start: 01-16-2024 COVID-19 Vaccine ( season) COVID-19 Vaccine () [facility] Start: 01-16-2024 Influenza vaccination Influenza Vacc ine [facility] Start: 12-16-2023 Influenza vaccination Flu vaccine (# 1) [facility] Start: 2022 Fall Risk Screening Fall Risk Screen [facility] Start: 2017 Respiratory Syncytia l Virus (RSV) or age 60 yrs+ (1 - 1-dose 60+ series) Respiratory Syncytial Virus (RSV) or age 60 yrs+ (1 - 1-dose 60+ series) [facility] Start: 01-16-2012 Screening for osteoporosis DEXA (modify frequency per FRAX score) [facility] Start: 2007 Shingles vaccine (1 of 2) Gates gles vaccine (1 of 2) [facility] Start: 2002 Screening for malign ant neoplasm of colon [facility] Start: 1997 Lipid panel Lipids [facility] Start: 1997 Screening for malign ant neoplasm of breast Breast cancer screen [facility] Start: 01-16-1976 Administration of varicella zoster vaccine Zoster (Shingles) Vaccine (1 of 2) [facility] Start: 1975 Hepatitis C screening Hepatitis C sc reen [facility] Start: 1969 Depression Screen Depression Screen [facility] Start: 1969 Depression Screening Depression Scre ening [facility] Start: 1963 Pneumococcal 65+ yea rs Vaccine (1 of 2 - PCV) Pneumococcal 65+ years Vaccine (1 of 2 - PCV) [facility] Start: 1957 Tobacco Counseling Tobacco Counselin deric [facility] Payers Date Payer Category Payer Managed Care Other (unspecified) [facility] [place] [place] [id number] 2022 Unknown [id number]. [id number] 2021 Medicare MEDICARE [id number] 2019 Unknown [id number] 1.2.840.908856.1.13.239. 2.7.3.128530.315 1959 Medicare [id number] 1959 Self-pay 1959 Unknown [id number] 1957 Unknown [id number] 2.16.840.1.408957.3.579. 2.593 1957 Unknown [id number] 2.16.840.1.903333.3.579. 2.593 1957 Unknown [id number] 2.16.840.1.698445.3.579. 2.593 1957 Unknown [id number] 2.16.840.1.659078.3.579. 2.593 1957 Unknown [id number] 2.16.840.1.435804.3.579. 2.593 1957 Unknown [id number] 2.16.840.1.427664.3.579. 2.593 1957 Unknown [id number] 2.16.840.1.727525.3.579. 2.1259 1957 Unknown [id number] 2.16.840.1.712268.3.579. 2.1285 1957 Unknown [id number] 2.16.840.1.966720.3.579. 2.1285 1957 Unknown [id number] 2.16.840.1.874998.3.579. 2.1285 1957 Unknown [id number] 2.16.840.1.732583.3.579. 2.1285 1957 Unknown [id number] 2.16.840.1.046677.3.579. 2.1285 1957 Unknown [id number] 2.16.840.1.466306.3.579. 2.1285 1957 Unknown [id number] 2.16.840.1.216207.3.579. 2.173 1957 Unknown [id number] 2.16.840.1.092848.3.579. 2.173 1957 Unknown [id number] 2.16.840.1.964453.3.579. 2. 1957 Unknown [id number] 2.16.840.1.872955.3.579. 2.173 1957 Unknown [id number] 2.16.840.1.267672.3.579. 2.173 1957 Unknown [id number] 2.16.840.1.789971.3.579. 2.173 1957 Unknown [id number] 2.16.840.1.512912.3.579. 2.173 1957 Unknown [id number] 2.16.840.1.607000.3.579. 2.173 1957 Unknown [id number] 2.16.840.1.722530.3.579. 2.173 1957 Unknown [id number] 2.16.840.1.978189.3.579. 2.173 1957 Unknown [id number] 2.16.840.1.615478.3.579. 2.173 1957 Unknown [id number] 2.16.840.1.168725.3.579. 2.173 1957 Unknown [id number] 2.16.840.1.463653.3.579. 2.173 1957 Unknown [id number] 2.16.840.1.380308.3.579. 2.173 1957 Unknown [id number] 2.16.840.1.939143.3.579. 2.173 1957 Unknown [id number] 2.16.840.1.040872.3.579. 2.173 1957 Unknown [id number] 2.16.840.1.533390.3.579. 2.173 1957 Unknown [id number] 2.16.840.1.093885.3.579. 2.173 Social History Date Type Detail Facility Start: 09-15-2020 End: 04-26-2024 Tobacco smoking status MIIS [facility] tobacco [facility] History of tobacco use [facility] Start: 09-15-2020 End: 04-26-2024 Tobacco use and exposure Smokeless tobacco non-user [facility] Start: 09-15-2020 Alcoholic beverage intake Curr ent non-drinker of alcohol (finding) [facility] Start: 09-04-2020 End: 09-15-2020 History of Social function [facility] Start: 09-04-2020 End: 09-15-2020 Tobacco use panel [facility] Start: 1955 Sex assigned at Not on file B [facility] Start: 04-26-2024 Alcoholic beverage intake Ex-drinker (finding) [facility] Do you belong to any clubs or organizations such as holiness groups, unions, fraternal or athletic groups, or school groups? No [facility] Are you now , , , , never or living with a partner? [facility] How often to you hav e a drink containing alcohol? Never [facility] Average Number of Drinks Not on file Pro [facility] Do you feel stress - tense, restless, nervous, or anxious, or unable to sleep at night because your mind is troubled all the time - these days [OSQ] Only a little [facility] Start: 09-04-2020 Education 12 [facility] Start: 08-28-2020 Sex Female (finding) [facility] Clinical Notes 03-06-2024 to 04-27-2024 Maricel Horan PTA - 04/27/2024 2:15 PM ESTTelephone Encounter - Lidia Beckett - 04/26/2024 2:01 PM ESTTelephone Encounter - SARINA Ritter - 04/26/2024 2:01 PM EST Note Date & Type Note Facility 04-27-2024 History of Presen t illness Narrative [facility] Outpatient Physical Therapy Daily Note Patient: Melissa Angel : 1955 CSN #: [id number] Referring Physician: Shaq Chavez MD Date: 04/27/2024 Diagnosis: R rotator cuff tendinitis, M75.81, R shoulder bursitis, M75.51 Treatment Diagnosis: Subacromial bursitis, shoulder impingement Onset Date: 02/28/22 PT Insurance Information: Jessenia Goyal Total # of Visits Approved: 16 Per Physician Order Total # of Visits to Date: 18 No Show: 0 Canceled Appointment: 0 05/03/24 Plan of Care/Recert Due Pre-Treatment Pain: 0/10 Subjective: Pt denies pain today, feeling really good. She was a little sore after last session, but reports that is normal. Exercises: Exercise 2: Pulleys x8' Exercise 5: PTB rows/LAE x20 ea, IR/ER walk outs LTB x15 Exercise 6: Supine: cane flexion and ER x15 ea, bench press with 2# wand x10 Exercise 7: Standing shoulder shrugs/retro rolls x20 ea 3# DB Exercise 12: Standing I-Y-T with 3# weight x10 ea Exercise 13: UBE: 55 rpm, 2 min forward/2 min. retro Modality: Modality Flow Sheet: Performed (X) Tx Modality X Electrical Stim: IFC/CP to R shoulder x15 min post tx to reduce soreness Assessment Assessment: Progressed strengthening ther ex with increased reps and resistance this date with pt tolerating well. Pt supine AROM R shoulder flexion measuring 156* today. No increased pain reported throughout tx, only fatigue. IFC/CP applied to R shoulder post tx to reduce soreness. Will continue Activity Tolerance Activity Tolerance: Patient tolerated treatment well Patient Education Patient Education: Continue with HEP Pt verbalized/demonstrated good understanding: [x] Yes [] No, pt required further clarification. Post Treatment Pain: 05/26 Plan Plan Frequency: 2 Plan weeks: 6 Goals (Total # of Visits to Date: 18) Short Term Goals Time Frame for Short Term Goals: 3 weeks Short Term Goal 1: Patient will be initiated with a HEP -MET Short Term Goal 2: Patient will tolerate manual interventions and modalities to decrease pain -MET Mcfp Goals Time Frame for Newspaper Stuffer Goals : 5 weeks Newspaper Stuffer Goal 1: Patient will be independent and compliant with a HEP -MET Mcfp Goal 2: Patient will improve R shoulder ROM to match L for ADLs. -progressing Newspaper Stuffer Goal 3: Patient will improve R shoulder strength to >/= 4/5 in all major joints and planes. -progressing Mcfp Goal 4: Patient will report 70% improvement in overall symptoms and function. -MET Minutes Tracking: Time In: 1415 Time Out: 1505 Minutes: 50 Timed Code Treatment Minutes: 48 Minutes Maricel Horan, REYES Date: 04/27/2024 documented in this encounter [facility] 04-26-2024 Miscellaneous Notes Formattin g of this note might be different from the original. Dr. Sotelo's office (endocrine) called and you made a referral to them for patient and they are not accepting new patients at this time. I called and spoke to Melissa. Will redirect the referral to Dr. Otoniel Herring in [place] as this is closer to her house. Will refax order to his office documented in this encounter [facility] 04-26-[address] er Note Dr. Sotelo's office (endocrine) called and you made a referral to them for patient and they are not accepting new patients at this time. [facility] 04-26-2024 Telephone encount er Note I called and spoke to Melissa. Will redirect the referral to Dr. Otoniel Herring in [place] as this is closer to her house. Will refax order to his office [facility] Work Phone: 04-20-2024 History of Presen t illness Narrative [facility] Outpatient Physical Therapy Daily Note Patient: Melsisa Angel : 1955 CSN #: [id number] Referring Physician: Shaq Chavez MD Date: 04/20/2024 Diagnosis: R rotator cuff tendinitis, M75.81, R shoulder bursitis, M75.51 Treatment Diagnosis: Subacromial bursitis, shoulder impingement Onset Date: 02/28/22 PT Insurance Information: Jessenia Goyal Total # of Visits Approved: 16 Per Physician Order Total # of Visits to Date: 16 No Show: 0 Canceled Appointment: 0 05/03/24 Plan of Care/Recert Due Pre-Treatment Pain: 05/26 Subjective: Pt reports a low 1 for pain today. She thinks that therapy is definitely helping Exercises: Exercise 2: Pulleys x8' Exercise 5: BTB rows/LAE 2x20 ea, IR/ER walk outs OTB x15 Exercise 8: Wall ladder flexion up to #30x10 Exercise 9: Sidelying external rotation with 2# dumbbell x15 Exercise 11: Therapy ball roll up wall x15 Exercise 13: UBE: 60 rpm, 2 min forward/2 min. retro Manual: Other: PROM: flexion, ER Modality: Modality Flow Sheet: Performed (X) Tx Modality X Electrical Stim: IFC/CP to R shoulder x15 min post tx to reduce soreness Assessment Assessment: Progressed pt with increased reps with pt tolerating well and demonstrating improved ROM this date. Pt continues to be limited with ER due to increased soreness. Continued PROM to improve mobility followed by IFC/CP post tx to reduce soreness. Will continue to progress per pt tolerance Activity Tolerance Activity Tolerance: Patient tolerated treatment well Patient Education Patient Education: Continue with HEP Pt verbalized/demonstrated good understanding: [x] Yes [] No, pt required further clarification. Post Treatment Pain: 05/26 Plan Plan Frequency: 2 Plan weeks: 6 Goals (Total # of Visits to Date: 16) Short Term Goals Time Frame for Short Term Goals: 3 weeks Short Term Goal 1: Patient will be initiated with a HEP -MET Short Term Goal 2: Patient will tolerate manual interventions and modalities to decrease pain -MET Newspaper Stuffer Goals Time Frame for Mcfp Goals : 5 weeks Mcfp Goal 1: Patient will be independent and compliant with a HEP -MET Newspaper Stuffer Goal 2: Patient will improve R shoulder ROM to match L for ADLs. -progressing Mcfp Goal 3: Patient will improve R shoulder strength to >/= 4/5 in all major joints and planes. -progressing Newspaper Stuffer Goal 4: Patient will report 70% improvement in overall symptoms and function. -progressing Minutes Tracking: Time In: 1413 Time Out: 1508 Minutes: 55 Timed Code Treatment Minutes: 54 Minutes Maricel Horan PTA Date: 04/20/2024 documented in this encounter [facility] 04-11-2024 History of Presen t illness Narrative [facility] Outpatient Physical Therapy Daily Note Patient: Melissa Angel : 1955 [facility] #: [id number] Referring Physician: Shaq Chavez MD Date: 04/11/2024 Treatment Diagnosis: Subacromial bursitis, shoulder impingement Onset Date: 02/28/22 PT Insurance Information: Jessenia Goyal Total # of Visits Approved: 16 Per Physician Order Total # of Visits to Date: 10 No Show: 0 Canceled Appointment: 0 05/03/24 Plan of Care/Recert Due Pre-Treatment Pain: 06/26 Subjective: Pt. reports 06/26 pain prior to therapy session, no complaints or concerns. Exercises: Exercise 1: HEP: Therapy ball circles, therapy ball rollout on table, cane extension, posterior capsule stretch Exercise 2: Pulleys x5' Exercise 4: Therapy ball circles x1' ea, therapy ball rollouts 2x10 ea Exercise 5: BTB rows/LAE 2x20 ea, IR/ER walk outs OTB-- BTB rows/LAE just today Exercise 8: Wall ladder flexion up to #30x10 Exercise 9: Sidelying external rotation with 2# dumbbell 2x10 Exercise 10: Cane extension x15 Exercise 11: Therapy ball roll up wall x15 Exercise 13: UBE: 60 rpm, 2 min forward/2 min. retro Manual: Joint Mobilization: Glenohumeral joint mobilizations: inferior, posterior, scapula MWM into protraction and upward rotation Modality Flow Sheet: Performed (X) Tx Modality X Electrical Stim: IFC with CP x15 minutes to decrease pain/soreness Assessment Assessment: Pt. able to complete therapy session with no increase in pain. Continues to struggle with flexion/extension ROM. Continued with joint mobs for a decrease in pain. IFC/CP used at end of treatment for pain and discomfort. Will continue to progress. Activity Tolerance Activity Tolerance: Patient tolerated treatment well Patient Education Patient Education: Continue with HEP Pt verbalized/demonstrated good understanding: [x] Yes [] No, pt required further clarification. Post Treatment Pain: 05/26 Plan Plan Frequency: 2 Plan weeks: 6 Goals (Total # of Visits to Date: 10) Short Term Goals Time Frame for Short Term Goals: 3 weeks Short Term Goal 1: Patient will be initiated with a HEP -MET Short Term Goal 2: Patient will tolerate manual interventions and modalities to decrease pain -MET Newspaper Stuffer Goals Time Frame for Mcfp Goals : 5 weeks Mcfp Goal 1: Patient will be independent and compliant with a HEP -MET Mcfp Goal 2: Patient will improve R shoulder ROM to match L for ADLs. -progressing Newspaper Stuffer Goal 3: Patient will improve R shoulder strength to >/= 4/5 in all major joints and planes. -progressing Newspaper Stuffer Goal 4: Patient will report 70% improvement in overall symptoms and function. -progressing Minutes Tracking: Time In: 1201 Time Out: 1255 Minutes: 54 Paula REYES Mccarty Date: 04/11/2024 documented in this encounter [facility] 04-10-2024 History of Presen t illness Narrative [facility] Outpatient Physical Therapy Daily Note Patient: Melissa Angel : 1955 CSN #: [id number] Referring Physician: Shaq Chavez MD Date: 04/10/2024 Treatment Diagnosis: Subacromial bursitis, shoulder impingement Onset Date: 02/28/22 PT Insurance Information: Jessenia Augustaleksandravijay Total # of Visits Approved: 16 Per Physician Order Total # of Visits to Date: 9 No Show: 0 Canceled Appointment: 0 05/03/24 Plan of Care/Recert Due Pre-Treatment Pain: 1/10 Subjective: Patient reports maybe a 1/10 pain coming into therapy. She reports she is 75% better overall. Exercises: Exercise 4: Therapy ball circles x1' ea, therapy ball rollouts 2x10 ea (just ball rollouts today) Exercise 5: BTB rows/LAE 2x20 ea, IR/ER walk outs OTB Exercise 8: Wall ladder flexion up to #30x5 Exercise 9: Sidelying external rotation with 2# dumbbell 2x10 Exercise 10: Cane extension x15 Exercise 12: Posterior capsule stretch 2x30 Exercise 13: UBE: 60 rpm, 2 min forward/2 min. retro Manual: Joint Mobilization: Glenohumeral joint mobilizations: inferior, posterior, scapula MWM into protraction and upward rotation Other: PROM: flexion, ER Modality: Modality Flow Sheet: Performed (X) Tx Modality X Electrical Stim: IFC with CP x15 minutes to decrease pain/soreness X Cold Pack: with IFC x15 minutes to decrease pain/soreness Assessment Body Structures, Functions, Activity Limitations Requiring Skilled Therapeutic Intervention: Decreased functional mobility , Decreased ADL status, Decreased ROM, Decreased strength, Decreased endurance, Decreased balance, Decreased high-level IADLs, Increased pain, Decreased posture Assessment: Patient with increased soreness today following manual techniques and exercise. Held some exercises due to increased soreness. IFC and CP applied to patient's shoulder following her tx session to decrease pain. Activity Tolerance Activity Tolerance: Patient tolerated treatment well Patient Education Patient Education: Continue with HEP Pt verbalized/demonstrated good understanding: [x] Yes [] No, pt required further clarification. Post Treatment Pain: 06/26 Plan Plan Frequency: 2 Goals (Total # of Visits to Date: 9) Short Term Goals Time Frame for Short Term Goals: 3 weeks Short Term Goal 1: Patient will be initiated with a HEP -MET Short Term Goal 2: Patient will tolerate manual interventions and modalities to decrease pain -MET Newspaper Stuffer Goals Time Frame for Newspaper Stuffer Goals : 5 weeks Mcfp Goal 1: Patient will be independent and compliant with a HEP -MET Newspaper Stuffer Goal 2: Patient will improve R shoulder ROM to match L for ADLs. -progressing Mcfp Goal 3: Patient will improve R shoulder strength to >/= 4/5 in all major joints and planes. -progressing Newspaper Stuffer Goal 4: Patient will report 70% improvement in overall symptoms and function. -progressing Minutes Tracking: Time In: 1215 Time Out: 1305 Minutes: 50 Timed Code Treatment Minutes: 48 Minutes Levi Armas PT, DPT, OCS, Cert. DN Date: 04/10/2024 documented in this encounter [facility] 04-06-2024 History of Presen t illness Narrative [facility] Outpatient Physical Therapy Daily Note Patient: Melissa Angel : 1955 CSN #: [id number] Referring Physician: Shaq Chavez MD Date: 04/06/2024 Treatment Diagnosis: Subacromial bursitis, shoulder impingement Onset Date: 02/28/22 PT Insurance Information: Jessenia Goyal Total # of Visits Approved: 16 Per Physician Order Total # of Visits to Date: 8 No Show: 0 Canceled Appointment: 0 05/03/24 Plan of Care/Recert Due Pre-Treatment Pain: 0/10 Subjective: Patient denies pain prior to session with no concerns this date. Exercises: Exercise 1: HEP: Therapy ball circles, therapy ball rollout on table, cane extension, posterior capsule stretch Exercise 2: Pulleys x5' Exercise 3: GTB horizontal ABD x10 Exercise 4: Therapy ball circles x1' ea, therapy ball rollouts 2x10 ea Exercise 5: BTB rows/LAE 2x15 ea, IR/ER walk outs OTB Exercise 7: Standing shoulder shrugs/retro rolls x10 ea 2# DB Exercise 8: Wall ladder flexion up to #30x5 Exercise 10: Cane extension x15 Exercise 11: Therapy ball roll up wall x15 Exercise 12: Posterior capsule stretch 2x30 , corner stretch 2 x 30 Manual: Joint Mobilization: Glenohumeral joint mobilizations: inferior, posterior, scapula MWM into protraction and upward rotation Other: PROM: flexion, ER Modality: IFC/CP applied to R shoulder to reduce post session soreness. Assessment Body Structures, Functions, Activity Limitations Requiring Skilled Therapeutic Intervention: Decreased functional mobility , Decreased ADL status, Decreased ROM, Decreased strength, Decreased endurance, Decreased balance, Decreased high-level IADLs, Increased pain, Decreased posture Assessment: Continued with charted exercises to increase scapular strength and mobility with min discomfort noted with horizontal abduction. Trialed wall angels with patient unable to perform due to pain. IFC/CP applied post session to reduce muscle soreness following treatment session. Activity Tolerance Activity Tolerance: Patient tolerated treatment well Patient Education Patient Education: New HEP Pt verbalized/demonstrated good understanding: [x] Yes [] No, pt required further clarification. Post Treatment Pain: 05/26 Plan Plan Frequency: 2 Plan weeks: 6 Goals (Total # of Visits to Date: 8) Short Term Goals Time Frame for Short Term Goals: 3 weeks Short Term Goal 1: Patient will be initiated with a HEP -MET Short Term Goal 2: Patient will tolerate manual interventions and modalities to decrease pain -MET Mcfp Goals Time Frame for Mcfp Goals : 5 weeks Mcfp Goal 1: Patient will be independent and compliant with a HEP -MET Mcfp Goal 2: Patient will improve R shoulder ROM to match L for ADLs. -progressing Newspaper Stuffer Goal 3: Patient will improve R shoulder strength to >/= 4/5 in all major joints and planes. -progressing Mcfp Goal 4: Patient will report 70% improvement in overall symptoms and function. -progressing Minutes Tracking: Time In: 1230 Time Out: 1330 Minutes: 60 Timed Code Treatment Minutes: 58 Minutes Henny Kohler PTA Date: 04/06/2024 documented in this encounter [facility] 04-03-2024 History of Presen t illness Narrative [facility] Outpatient Physical Therapy Daily Note Patient: Melissa Angel : 1955 CSN #: [id number] Referring Physician: Shaq Chavez MD Date: 04/03/2024 Treatment Diagnosis: Subacromial bursitis, shoulder impingement Onset Date: 02/28/22 PT Insurance Information: Jessenia Augustaleksandravijay Total # of Visits Approved: 16 Per Physician Order Total # of Visits to Date: 7 No Show: 0 Canceled Appointment: 0 05/03/24 Plan of Care/Recert Due Pre-Treatment Pain: 1-2/10 Subjective: Patient reports 1-2/10 shoulder pain coming into therapy. She reports her shoulder is improving. Exercises: Exercise 1: HEP: Therapy ball circles, therapy ball rollout on table, cane extension, posterior capsule stretch Exercise 2: Pulleys x3' Exercise 4: Therapy ball circles x1' ea, therapy ball rollouts 2x10 ea Exercise 5: GTB rows/LAE 2x10 ea, IR/ER walk outs OTB Exercise 9: Sidelying external rotation with 2# dumbbell 2x10 Exercise 10: Cane extension x10 Exercise 11: Therapy ball roll up wall x15 Exercise 12: Posterior capsule stretch 2x30 seconds Manual: Joint Mobilization: Glenohumeral joint mobilizations: inferior, posterior, scapula MWM into protraction and upward rotation Modality: Modality Flow Sheet: Performed (X) Tx Modality X Electrical Stim: IFC with CP x15 minutes to decrease pain X Cold Pack: with IFC to decrease pain Assessment Body Structures, Functions, Activity Limitations Requiring Skilled Therapeutic Intervention: Decreased functional mobility , Decreased ADL status, Decreased ROM, Decreased strength, Decreased endurance, Decreased balance, Decreased high-level IADLs, Increased pain, Decreased posture Assessment: The patient has attended her initial evaluation and 6 follow-up appointments 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 She reports her shoulder is improving and has had less pain. She demonstrates improved R shoulder ROM with active shoulder flexion measuring 141*, abduction measuring 158*, and external rotation measuring 85* in 90* of abduction. She continues to be painful when moving into internal rotation and is only able to reach to her lateral belt line. She would benefit from continued PT to continue to work toward her manager long term care goals. Activity Tolerance Activity Tolerance: Patient tolerated treatment well Patient Education Patient Education: New HEP Pt verbalized/demonstrated good understanding: [x] Yes [] No, pt required further clarification. Post Treatment Pain: 1-06/26 Plan Plan Frequency: 2 Plan weeks: 6 Goals (Total # of Visits to Date: 7) Short Term Goals Time Frame for Short Term Goals: 3 weeks Short Term Goal 1: Patient will be initiated with a HEP -MET Short Term Goal 2: Patient will tolerate manual interventions and modalities to decrease pain -MET Mcfp Goals Time Frame for Newspaper Stuffer Goals : 5 weeks Mcfp Goal 1: Patient will be independent and compliant with a HEP -MET Mcfp Goal 2: Patient will improve R shoulder ROM to match L for ADLs. -progressing Mcfp Goal 3: Patient will improve R shoulder strength to >/= 4/5 in all major joints and planes. -progressing Mcfp Goal 4: Patient will report 70% improvement in overall symptoms and function. -progressing Minutes Tracking: Time In: 1245 Time Out: 1335 Minutes: 50 Timed Code Treatment Minutes: 48 Minutes Levi Armas PT, DPT, OCS, Cert. DN Date: 04/03/2024 documented in this encounter [facility] 03-30-2024 History of Presen t illness Narrative [facility] Outpatient Physical Therapy Daily Note Patient: Melissa Angel : 1955 [facility] #: [id number] Referring Physician: Shaq Chavez MD Date: 03/30/2024 Treatment Diagnosis: Subacromial bursitis, shoulder impingement Onset Date: 02/28/22 PT Insurance Information: Jessenia Goyal Total # of Visits Approved: 10 Per Physician Order Total # of Visits to Date: 6 No Show: 0 Canceled Appointment: 0 04/14/24 Plan of Care/Recert Due Pre-Treatment Pain: 07/24 Subjective: Patient reports R shoulder pain 07/24 prior to session. Exercises: Exercise 1: HEP: Therapy ball circles, therapy ball rollout on table, supine external rotation with cane in scapular plane x10 Exercise 2: Pulleys x6' Exercise 3: YTB horizontal ABD x10 Exercise 4: Therapy ball circles x1' ea, therapy ball rollouts x10 ea Exercise 5: GTB rows/LAE 2x10 ea, IR/ER walk outs OTB Exercise 6: Supine: cane flexion and ER (scapular plane) x10 ea, bench press with cane x10 Exercise 7: Seated shoulder shrugs/retro rolls x10 ea 1# DB Exercise 8: Wall ladder flexion up to #30x5 Manual: Joint Mobilization: Glenohumeral joint mobilizations: inferior, posterior, lateral distraction Other: PROM: flexion, ER Modality: IFC/CP applied to R shoulder to reduce muscle pain and discomfort. Assessment Body Structures, Functions, Activity Limitations Requiring Skilled Therapeutic Intervention: Decreased functional mobility , Decreased ADL status, Decreased ROM, Decreased strength, Decreased endurance, Decreased balance, Decreased high-level IADLs, Increased pain, Decreased posture Assessment: Progressed patient with increased resistance and reps with good tolerance this date. Patient reports minimal discomfort continues with horizontal abduction. Manual techniques provided to improve ROM followed by IFC/CP with relief noted. Activity Tolerance Activity Tolerance: Patient tolerated treatment well Patient Education Patient Education: HEP Pt verbalized/demonstrated good understanding: [x] Yes [] No, pt required further clarification. Post Treatment Pain: 07/24 Plan Plan Frequency: 2 Plan weeks: 6 Goals (Total # of Visits to Date: 6) Short Term Goals Time Frame for Short Term Goals: 3 weeks Short Term Goal 1: Patient will be initiated with a HEP -MET Short Term Goal 2: Patient will tolerate manual interventions and modalities to decrease pain -MET Mcfp Goals Time Frame for Newspaper Stuffer Goals : 5 weeks Mcfp Goal 1: Patient will be independent and compliant with a HEP -MET Mcfp Goal 2: Patient will improve R shoulder ROM to match L for ADLs. -progressing Mcfp Goal 3: Patient will improve R shoulder strength to >/= 4/5 in all major joints and planes. -progressing Mcfp Goal 4: Patient will report 70% improvement in overall symptoms and function. -progressing Minutes Tracking: Time In: 1400 Time Out: 1500 Minutes: 60 Timed Code Treatment Minutes: 57 Minutes Henny Kohler, REYES Date: 03/30/2024 documented in this encounter [facility] 03-24-2024 History of Presen t illness Narrative [facility] Outpatient Physical Therapy Daily Note Patient: Melissa Angel : 1955 CSN #: [id number] Referring Physician: Shaq Chavez MD Date: 03/24/2024 Treatment Diagnosis: Subacromial bursitis, shoulder impingement Onset Date: 02/28/22 PT Insurance Information: Jessenia Goyal Total # of Visits Approved: 10 Per Physician Order Total # of Visits to Date: 4 No Show: 0 Canceled Appointment: 0 04/14/24 Plan of Care/Recert Due Pre-Treatment Pain: 10 Subjective: Pt reports she was gone for a bit traveling to [place] to see her parents. Pt rates current R shoulder pain a 3-410. Exercises: Exercise 1: HEP: Therapy ball circles, therapy ball rollout on table, supine external rotation with cane in scapular plane x10 Exercise 2: Pulleys x6' Exercise 4: Therapy ball circles x10 ea Exercise 5: YTB rows/LAE x10 ea Exercise 6: Supine: cane flexion and ER (scapular plane) x10 ea, bench press with cane x10 Exercise 7: Seated shoulder shrugs/retro rolls x10 ea Exercise 8: Wall ladder flexion up to #30 x5 Manual: Joint Mobilization: Glenohumeral joint mobilizations: inferior, posterior, lateral distraction Other: PROM: flexion, ER Modality: Modality Flow Sheet: Performed (X) Tx Modality x Electrical Stim: IFC with CP 15 mins for discomfort. Ultrasound: ___ W/cm2 x ___ mins Duty factor: __100% __50% __20% __10% Head size: 10 mm Other: MHz: __1mHz __2 mHz __3mHz Location: Hot Pack: x Cold Pack: Assessment Assessment: Pt continues to display impingement symptoms with arm motions. Continued scap stability program with fair tolerance. Will continue. Activity Tolerance Activity Tolerance: Patient tolerated treatment well Patient Education Patient Education: HEP Pt verbalized/demonstrated good understanding: [x] Yes [] No, pt required further clarification. Post Treatment Pain: 07/24 Plan Plan Frequency: 2 Plan weeks: 6 Goals (Total # of Visits to Date: 4) Short Term Goals Time Frame for Short Term Goals: 3 weeks Short Term Goal 1: Patient will be initiated with a HEP -MET Short Term Goal 2: Patient will tolerate manual interventions and modalities to decrease pain -MET Mcfp Goals Time Frame for Mcfp Goals : 5 weeks Mcfp Goal 1: Patient will be independent and compliant with a HEP -MET Newspaper Stuffer Goal 2: Patient will improve R shoulder ROM to match L for ADLs. -progressing Newspaper Stuffer Goal 3: Patient will improve R shoulder strength to >/= 4/5 in all major joints and planes. -progressing Newspaper Stuffer Goal 4: Patient will report 70% improvement in overall symptoms and function. -progressing Minutes Tracking: Time In: 830 Time Out: 928 Minutes: 58 Timed Code Treatment Minutes: 55 Minutes Bean Koenig PTA Date: 03/24/2024 documented in this encounter [facility] 03-06-2024 History of Presen t illness Narrative [facility] Outpatient Physical Therapy Daily Note Patient: Melissa Angel : 1955 CSN #: [id number] Referring Physician: hSaq Chavez MD Date: 03/06/2024 Diagnosis: R rotator cuff tendinitis, M75.81, R shoulder bursitis, M75.51 Treatment Diagnosis: Subacromial bursitis, shoulder impingement Onset Date: 02/28/22 PT Insurance Information: Jessenia Goyal Total # of Visits Approved: 10 Per Physician Order Total # of Visits to Date: 3 No Show: 0 Canceled Appointment: 0 04/14/24 Plan of Care/Recert Due Pre-Treatment Pain: 2-3 Subjective: Pt reports 2-3/10 R shoulder pain today stating it is feeling better. She reports feeling good after last session. Pt reports she will be gone for 2 weeks as she will be in [place]. Exercises: Exercise 1: HEP: Therapy ball circles, therapy ball rollout on table, supine external rotation with cane in scapular plane x10 Exercise 2: Pulleys x6' Exercise 4: Therapy ball circles x10 ea Exercise 5: YTB rows/LAE x10 ea Exercise 6: Supine: cane flexion and ER (scapular plane) x10 ea, bench press with cane x10 Exercise 7: Seated shoulder shrugs/retro rolls x10 ea Exercise 8: Wall ladder flexion up to #30 x5 Manual: Joint Mobilization: Glenohumeral joint mobilizations: inferior, posterior, lateral distraction Other: PROM: flexion, ER Modality: Modality Flow Sheet: Performed (X) Tx Modality X Electrical Stim: IFC/CP to R shoulder x15 min post tx to reduce pain Assessment Assessment: Progressed pt with increased reps and resistance this date with no complaints. Pt reports improved pain/sxs since last visit and good compliance with HEP. Continued with gentle PROM and jt mobs to improve mobility with pt reporting impingement symptoms during inf joint mobs. IFC/CP to R shoulder following tx to reduce discomfort with relief noted. Activity Tolerance Activity Tolerance: Patient tolerated treatment well Patient Education HEP Pt verbalized/demonstrated good understanding: [x] Yes [] No, pt required further clarification. Post Treatment Pain: 07/24 Plan Plan Frequency: 2 Plan weeks: 6 Goals (Total # of Visits to Date: 3) Short Term Goals Time Frame for Short Term Goals: 3 weeks Short Term Goal 1: Patient will be initiated with a HEP -MET Short Term Goal 2: Patient will tolerate manual interventions and modalities to decrease pain -MET Newspaper Stuffer Goals Time Frame for Newspaper Stuffer Goals : 5 weeks Mcfp Goal 1: Patient will be independent and compliant with a HEP -MET Newspaper Stuffer Goal 2: Patient will improve R shoulder ROM to match L for ADLs. -progressing Newspaper Stuffer Goal 3: Patient will improve R shoulder strength to >/= 4/5 in all major joints and planes. -progressing Mcfp Goal 4: Patient will report 70% improvement in overall symptoms and function. -progressing Minutes Tracking: Time In: 1200 Time Out: 1255 Minutes: 55 Timed Code Treatment Minutes: 54 Minutes Maricel Horan PTA Date: 03/06/2024 documented in this encounter [facility] Evaluation note Diagnosis Papillary thyroid carcinoma ([facility] Primary [facility] SystemInstructionsNot on filedocumented in this encounter [facility] Summary Purpose Family History No Family History Records FoundNo Family History Records FoundNo Family History Records FoundNo Family History Records FoundNo Family History Records FoundNo Family History Records FoundNo Family History Records Found Advance Directives Date Activated Date Inactivated Comments 09/15/2020 5:39 PM 09/16/2020 2:34 PM Additional Source Comments INFORMATION SOURCE (unrecogn ized section and content) DATE CREATED AUTHOR 07/13/2020 [facility] DATE CREATED AUTHOR AUTHOR'S ORGANIZ ATION 09/17/2020 [facility] DATE CREATED AUTHOR AUTHOR'S ORGANIZ ATION 09/28/2022 [facility] DATE CREATED AUTHOR AUTHOR'S ORGANIZ ATION 04/30/2023 [facility] DATE CREATED AUTHOR AUTHOR'S ORGANIZ ATION 04/26/2024 [facility] DATE CREATED AUTHOR AUTHOR'S ORGANIZ ATION 04/29/2024 [facility] DATE CREATED AUTHOR AUTHOR'S ORGANIZ ATION 05/08/2024 [facility] Care Teams (unrecognized sec tion and content) [facility] Nurse Practitioner Relationship Specialty Start Date End Date Rachel Carvajal MD [address] [place] [address] PCP - General Family Medicine 09/15/20 [facility] Nurse Practitioner Relationship Specialty Start Date End Date Rachel Carvajal MD [address] [place] [id number] PCP - General Family Medicine 09/15/20 [facility] Nurse Practitioner Relationship Specialty Start Date End Date Rachel Carvajal MD [address] [place] [id number] PCP - General Family Medicine 09/15/20 [facility] Nurse Practitioner Relationship Specialty Start Date End Date Rachel Carvajal MD [address] [place] [id number] PCP - General Family Medicine 09/15/20 [facility] Nurse Practitioner Relationship Specialty Start Date End Date Rachel Carvajal MD [address] [place] [id number] PCP - General Family Medicine 09/15/20 [facility] Nurse Practitioner Relationship Specialty Start Date End Date Rachel Carvajal MD [address] [id number] PCP - General Family Medicine 09/15/20 [facility] Nurse Practitioner Relationship Specialty Start Date End Date Rachel Carvajal MD [address] [place] [phone] PCP - General Family Medicine 09/15/20 [facility] Nurse Practitioner Relationship Specialty Start Date End Date Rachel Carvajal MD [address] [place] [id number] PCP - General Family Medicine 09/15/20 [facility] Nurse Practitioner Relationship Specialty Start Date End Date Rachel Carvajal MD PCP - General Family Medicine 08/28/20 [facility] Nurse Practitioner Relationship Specialty Start Date End Date Rachel Carvajal MD [address] [place] [address] PCP - General Family Medicine 09/15/20 [facility] Nurse Practitioner Relationship Specialty Start Date End Date Rachel Carvajal MD [address] [place] [address] PCP - General Family Medicine 09/15/20 [facility] Call[facility] Nurse Practitioner Relationship Specialty Start Date End Date Rachel Carvajal MD PCP - General Family Medicine 08/28/20 FOR RECORDS PERTAINING TO PATIENTS WHO ARE [...] BE BASED ON THE PRIMARY CLINICAL RECORDS. [facility] [employer] [facility]. provides no warranty or guarantee of the accuracy or completeness of information in this document.
[2024-06-16 16:21] LABS: Free T3 2.87 pg/mL (2.18-3.98); Thyroid Stimulating Hormone 0.114 uIU/mL (0.358-3.740)
== END 2024-06-16 15:19 | disposition home or self-care (01) ==
LOC: LAB 15:18
PROVIDERS: PCP Family Medicine; Visit Provider Family Medicine
DX: E03.9 Hypothyroidism, unspecified (principal)
CPT/HCPCS: 36415; 84436; 84443; 84481

== ENCOUNTER 2024-09-25 12:46 | Outpatient (OUT) | payer MEDICARE, OTHER, SELFPAY ==
--- NOTE | 2024-09-25 13:10 | US_ITS ---
The [address] [address] Patient Name: ANGEL ANGEL MRN: [id number] date: 1955 Sex: F Assigned Patient Location: [place] Current Patient Location: [place] Accession/Order Number: [id number] Exam Date: 09/25/2024 15:17 Report Date: 09/25/2024 15:18 At the request of: NON-STAFF PHYSICIAN MD Procedure: US soft tissue head and neck Soft tissue ultrasound. Reason for exam: Status post thyroidectomy. COMPARISON: Ultrasound 01/25/2024. TECHNIQUE: Grayscale and Doppler images of the thyroid bed was obtained. FINDINGS: Imaging of the thyroidectomy bed demonstrates no suspicious abnormality such as nodule or enlarged lymph nodes. No soft tissue mass. US/US soft tissue head and neck IMPRESSION: No suspicious abnormality is seen within the thyroidectomy bed to suggest tumor recurrence or local metastatic disease. Impression dictated by: Aj Llamas Jr., D.O. 09/25/2024 3:18 PM Dictation Location: [place] [address] Electronically authenticated by: [id number] Y Date: 09/25/2024 15:18
--- OUTSIDE RECORDS SUMMARY | 2024-09-25 13:11 | XMS_ITS | CCD ---
Author Organization [facility] Care Team Providers Care Delivery Supervisor Name Role Phone ALFREDO ., DR RAMOS Admitting Unavailable HOY ., [...] Unavailable Rachel Carvajal MD Primary Care Provider [phone] FITOY, RACHEL M Referring Unavailable HOY, RACHEL M [...] Unavailable HOY, RACHEL M Primary Care Unavailable DAMASCUSSHAQ Referring Unavailable HOY, RACHEL M Primary Care Unavailable DAMASCUSSHAQ Referring Unavailable HOY, RACHEL M Primary Care Unavailable HOY, RACHEL M Primary Care Unavailable SHAQ CHAVEZ Referring Unavailable CHAVEZSHAQ Referring Unavailable HOY, RACHEL M Primary Care Unavailable CHAVEZSHAQ Referring Unavailable HOY, RACHEL M Primary Care Unavailable DAMASCUSSHAQ Referring Unavailable HOY, RACHEL M Primary Care Unavailable DAMASCUS, SHAQ Hudson Referring Unavailable HOY, RACHEL M Primary Care Unavailable DAMASCUS, SHAQ Hudson Referring Unavailable HOY, RACHEL M Primary Care Unavailable DAMASCUS, SHAQ Hudson Referring Unavailable HOY, RACHEL M Primary Care Unavailable DAMASCUS, SHAQ Hudson Referring Unavailable HOY, RACHEL M Primary Care Unavailable DAMASCUS, SHAQ Hudson Referring Unavailable HOY, RACHEL M Primary Care Unavailable DAMASCUSSHAQ Referring Unavailable HOY, RACHEL M Primary Care Unavailable DAMASCUSSHAQ Referring Unavailable HOY, RACHEL M Primary Care Unavailable DAMASCUSSHAQ Referring Unavailable HOY, RACHEL M Primary Care Unavailable DAMASCUS, SHAQ Hudson Referring Unavailable HOY, RACHEL M Primary Care Unavailable Rachel Carvajal MD Primary Care Provider [phone] Medications Current Medications Medication Drug Class(es) Dates [...] OBULINon 08-12-2022 Thyroglobulin Antibody <1.0 Normal 0.0-0.9 [facility] Comment on above: Result Comment: Thyr oglobulin Antibody measured by [facility] [place] Methodology Performed By: #### T HYGIMA #### [facility] [address] [address] [address] Aung Mohamud Thyroglobulin by CUONG 0.1 ng/mL Critically low 1.5-38.5 [facility] Comment on above: Result Comment: Acco [...] 0.1 ng/mL . Thyroglobulin measured by [facility] [place] Immunometric Assay Performed By: #### T HYGIMA #### [facility] [address] LUNG CANCER SCREENINGon [...] by: SHAQ OSORIO Date: 2022-08-11 14:16 Normal [facility] TSHon 08-11-2022 TSH 0.766 uIU/mL Normal 0.358-3.740 [facility] Comment on above: Performed By: #### T SH #### [facility] [address] [place] [address] Dr. Aung Mohamud XR DEXA BONE DENSITYon [...] SHAQ OSORIO Date: 2022-08-11 13:42 Normal [facility] INSULINon 07-23-2022 Insulin 7.2 uIU/mL Normal 2.6-24.9 [facility] Comment on above: Performed By: #### I NSULIN #### [facility] [address] [place] [address] Dr. Aung Mohamud MG MAMM SCREEN 3D GALINA CADon 07-23-2022 MG MAMM SCREEN 3D GALINA CAD Patient: MELISSA ANGEL I. Exam Date: 07/23/2022 : 1955 Gender:F Ordering : DR RACHEL CARVAJAL . Admission #: [id number] Family : Order #: [id number] CLICK HERE TO VIEW EXAM RADIOLOGY REPORT [...] colon cancer at age 64. LOCATION: [facility] BREAST COMPOSITION: Extremely dense, which lowers [...] M.D. on 07/24/2022 at 07:53 Normal [facility] CBC AUTO DIFFon 07-22-2022 BASO # 0.0 103/ul Normal 0.0-0.1 [facility] Comment on above: Performed By: #### C BC #### [facility] [address] [address] [address] Aung Mohamud Basophils/100 WBC (Bld) 0.2 % Normal 0.2-2.0 [facility] Comment on above: Performed By: #### C BC #### [facility] [address] [address] [address] Aung Mohamdu EO # 0.1 103/ul Normal 0.0-0.7 [facility] Comment on above: Performed By: #### C BC #### [facility] [address] [address] [address] Aung Mohamud Eosinophils/100 WBC (Bld) 2.4 % Normal 0.9-7.0 [facility] Comment on above: Performed By: #### C BC #### [facility] [address] [address] [address] Aung Mohamud Erythrocyte distribution width (RBC) [Ratio] 14.1 % Normal 11.0-15.0 [facility] Comment on above: Performed By: #### C BC #### [facility] [address] [place] [address] Dr. Aung Mohamud Hematocrit (Bld) [Volume fraction] 43.3 % Normal 36.0-48.0 [facility] Comment on above: Performed By: #### C BC #### [facility] [address] [place] [address] Dr. Aung Mohamud Hemoglobin (Bld) [Mass/Vol] 14.5 g/dL Normal 12.0-16.0 [facility] Comment on above: Performed By: #### C BC #### [facility] [address] [place] [address] Dr. Aung Mohamud IG # 0.02 10e3/ul Normal 0.00-0.03 [facility] Comment on above: Performed By: #### C BC #### [facility] [address] [place] [address] Dr. Aung Mohamud IG % 0.3 % Normal 0.0-0.5 [facility] Comment on above: Performed By: #### C BC #### [facility] [address] [place] [address] Dr. Aung Mohamud LYMPH # 1.5 103/ul Normal 1.2-3.8 [facility] Comment on above: Performed By: #### C BC #### [facility] [address] [place] [address] Dr. Aung Mohamud Lymphocytes/100 WBC (Bld) 24.6 % Normal 20.5-60.0 [facility] Comment on above: Performed By: #### C BC #### [facility] [address] [place] [address] Dr. Aung Mohamud MANUAL DIFF REQ NO Normal [facility] Comment on above: Performed By: #### C BC #### [facility] [address] [place] [address] Dr. Aung Mohamud MCH (RBC) [Entitic mass] 31.1 pg Normal 26.7-34.0 [facility] Comment on above: Performed By: #### C BC #### [facility] [address] [address] [address] Aung Mohamud MCHC (RBC) [Mass/Vol] 33.5 g/dL Normal 29.9-35.2 [facility] Comment on above: Performed By: #### C BC #### [facility] [address] [place] [address] Dr. Aung Mohamud MCV (RBC) [Entitic vol] 92.9 fL Normal 81.0-99.0 [facility] Comment on above: Performed By: #### C BC #### [facility] [address] [place] [address] Dr. Aung Mohamud MONO # 0.3 103/ul Normal 0.3-0.8 [facility] Comment on above: Performed By: #### C BC #### [facility] [address] [place] [address] Dr. Aung Mohamud Monocytes/100 WBC (Bld) 4.9 % Normal 1.7-12.0 [facility] Comment on above: Performed By: #### C BC #### [facility] [address] [place] [address] Dr. Aung Mohamud NEUT # 4.0 103/ul Normal 1.4-6.5 [facility] Comment on above: Performed By: #### C BC #### [facility] [address] [place] [address] Dr. Aung Mohamud Neutrophils/100 WBC (Bld) 67.6 % Normal 43.0-75.0 [facility] Comment on above: Performed By: #### C BC #### [facility] [address] [place] [address] Dr. Aung Mohamud Platelet mean volume (Bld) [Entitic vol] 10.2 fL Normal 9.5-13.5 [facility] Comment on above: Performed By: #### C BC #### [facility] [address] [place] [address] Dr. Aung Mohamud PLT 333 103/ul Normal 150-450 [facility] Comment on above: Performed By: #### C BC #### [facility] [address] [address] [address] Aung Mohamud RBC 4.66 106/ul Normal 4.20-5.40 [facility] Comment on above: Performed By: #### C BC #### [facility] [address] [address] [address] Aung Mohamud WBC 5.9 103/ul Normal 4.0-11.0 [facility] Comment on above: Performed By: #### C BC #### [facility] [address] [address] [address] Aung Mohamud FREE THYROXINE INDEX T7on FTI 5.00 Critically high 1.30-4.50 [facility] Comment on above: Performed By: #### L IPID, T7, CMP, TSH ####[facility] [address] [address]Dr. Aung Mohamud T3U 37.0 % Normal 30.0-39.0 [facility] Comment on above: Performed By: #### L IPID, T7, CMP, TSH ####[facility] [address] [id number]. Aung Mohamud T4 [Mass/Vol] 13.50 ug/dL Normal 4.80-13.90 [facility] Comment on above: Performed By: #### L IPID, T7, CMP, TSH ####[facility] [address] [address]Dr. Aung Mohamud GLYCOHEMOGLOBIN A1Con 2022 ADA RECOMMENDATION SEE BELOW Normal [facility] Comment on above: Result Comment: ADA RECOMMENDED LIMIT 4.0 - 6.0 ADA THERAPEUTIC TARGET < 7.0 ACTION SUGGESTED > 7.0 Performed By: #### A 1C #### [facility] [address] [address] [address] Aung Mohamud Glucose [Mass/Vol] 117 mg/dL Normal [facility] Comment on above: Performed By: #### A 1C #### [facility] [address] [address] [address] Aung Mohamud HbA1c (Bld) [Mass fraction] 5.7 % Normal 4.5-6.2 [facility] Comment on above: Performed By: #### A 1C #### [facility] [id number] Aung Mohamud IRONon 07-22-2022 Iron [Mass/Vol] 118.0 ug/dL Normal 50.0-170.0 [facility] Comment on above: Performed By: #### V ITAD, IRON #### [facility] [id number] Aung Mohamud LIPID PROFILEon 07-22-2022 CHOL-HDL RATIO NORM SEE BELOW Normal [facility] Comment on above: Result Comment: 3.3 - 4.4 LOW RISK 4.4 - 7.1 AVERAGE RISK 7.1 - 11.0 MODERATE RISK >11.0 HIGH RISK Performed By: #### L IPID, T7, CMP, TSH ####[facility] [address] [id number]. Aung Mohamud Cholesterol [Mass/Vol] 209 mg/dL Critically high <=200 [facility] Comment on above: Performed By: #### L IPID, T7, CMP, TSH ####[facility] [address] [address]Dr. Aung Mohamud Cholesterol in HDL [Mass/Vol] 66 mg/dL Critically high 40-60 [facility] Comment on above: Performed By: #### L IPID, T7, CMP, TSH ####[facility] [address] [id number]. Aung Mohamud Cholesterol in LDL [Mass/Vol] 118.8 mg/dL Normal [facility] Comment on above: Performed By: #### L IPID, T7, CMP, TSH ####[facility] [address] [id number]. Aung Mohamud Cholesterol.total/Cho lesterol in HDL [Mass ratio] 3.2 {ratio} Normal [facility] Comment on above: Performed By: #### L IPID, T7, CMP, TSH ####[facility] [address] [id number]. Aung Mohamud HDL NORMAL > or = 60 mg/dl - LOW CARDIOVASCULAR RISK <40 mg/dl - HIGH CARDIOVASCULAR RISK Normal [facility] Comment on above: Performed By: #### L IPID, T7, CMP, TSH ####[facility] [address] [address]Dr. Aung Mohamud LDL CALC NORMAL SEE BELOW Normal [facility] Comment on above: Result Comment: <100 mg/dl OPTIMAL 100 - 129 mg/dl NEAR OR ABOVE OPTIMAL 130 - 159 mg/dl BORDERLINE HIGH 160 - 189 mg/dl HIGH >190 mg/dl VERY HIGH Performed By: #### L IPID, T7, CMP, TSH ####[facility] [address] [address]Dr. Aung Mohamud Triglyceride [Mass/Vol] 121 mg/dL Normal <=150 [facility] Comment on above: Performed By: #### L IPID, T7, CMP, TSH ####[facility] [address] [address]Dr. Aung Mohamud VLDL CALC 24.2 mg/dL Normal [facility] Comment on above: Performed By: #### L IPID, T7, CMP, TSH ####[facility] [address] [address]Dr. Aung Mohamud PROF 14(COMP METB)on 023 Albumin [Mass/Vol] 3.7 g/dL Normal 3.4-5.[address] [facility] Comment on above: Performed By: #### L IPID, T7, CMP, TSH ####[facility] [address] [address]Dr. Aung Mohamud Albumin/Globulin [Mass ratio] 0.9 {ratio} Normal [facility] Comment on above: Performed By: #### L IPID, T7, CMP, TSH ####[facility] [address] [address]Dr. Aung Mohamud ALP [Catalytic activity/Vol] 171 U/L Critically high 46-116 [facility] Comment on above: Performed By: #### L IPID, T7, CMP, TSH ####[facility] [address] [address]Dr. Aung Mohamud ALT [Catalytic activity/Vol] 16 U/L Normal 14-59 [facility] Comment on above: Performed By: #### L IPID, T7, CMP, TSH ####[facility] [address] [address]Dr. Aung Mohamud Anion gap [Moles/Vol] 10.9 mmol/L Normal [facility] Comment on above: Performed By: #### L IPID, T7, CMP, TSH ####[facility] [address] [address]Dr. Aung Mohamud AST [Catalytic activity/Vol] 18 U/L Normal 15-37 [facility] Comment on above: Performed By: #### L IPID, T7, CMP, TSH ####[facility] [address] [address]Dr. Rosalinaharvey Mohamud Bilirubin [Mass/Vol] 0.3 mg/dL Normal 0.2-1.0 [facility] Comment on above: Performed By: #### L IPID, T7, CMP, TSH ####[facility] [address] [place], [place] [address]Dr. Rosalinaharvey Mohamud Calcium [Mass/Vol] 9.4 mg/dL Normal 8.5-10.[address] [facility] Comment on above: Performed By: #### L IPID, T7, CMP, TSH ####[facility] [address] [address]Dr. Aung Mohamud Chloride [Moles/Vol] 103 mmol/L Normal 98-107 [facility] Comment on above: Performed By: #### L IPID, T7, CMP, TSH ####[facility] [address] [place], [place] [address]Dr. Aung Mohamud CO2 [Moles/Vol] 27.8 mmol/L Normal 21.0-32.0 [facility] Comment on above: Performed By: #### L IPID, T7, CMP, TSH ####[facility] [address] [address]Dr. Aung Mohamud Creatinine [Mass/Vol] 0.71 mg/dL Normal 0.55-1.02 [facility] Comment on above: Performed By: #### L IPID, T7, CMP, TSH ####[facility] [address] [address]Dr. Aung Mohamud EGFR-AF MALAYSIAN >60 Normal >=60 [facility] Comment on above: Performed By: #### L IPID, T7, CMP, TSH ####[facility] [address] [address]Dr. Aung Mohamud EGFR-NON AF MALAYSIAN >60 Normal >=60 [facility] Comment on above: Performed By: #### L IPID, T7, CMP, TSH ####[facility] [address] [address]Dr. Aung Mohamud Globulin (S) [Mass/Vol] 4.3 g/dL Normal [facility] Comment on above: Performed By: #### L IPID, T7, CMP, TSH ####[facility] [address] [place], [place] [address]Dr. Aung Mohamud Glucose [Mass/Vol] 91 mg/dL Normal 74-106 [facility] Comment on above: Performed By: #### L IPID, T7, CMP, TSH ####[facility] [address] [address]Dr. Aung Mohamud Potassium [Moles/Vol] 3.7 mmol/L Normal 3.5-5.1 [facility] Comment on above: Performed By: #### L IPID, T7, CMP, TSH ####[facility] [address] [address]Dr. Aung Mohamud Protein [Mass/Vol] 8.0 g/dL Normal 6.4-8.2 [facility] Comment on above: Performed By: #### L IPID, T7, CMP, TSH ####[facility] [address] [address]Dr. Rosalinaharvey Mohamud Sodium [Moles/Vol] 138 mmol/L Normal 136-145 [facility] Comment on above: Performed By: #### L IPID, T7, CMP, TSH ####[facility] [address] [address]Dr. Aung Mohamud Urea nitrogen [Mass/Vol] 13.0 mg/dL Normal 7.0-18.0 [facility] Comment on above: Performed By: #### L IPID, T7, CMP, TSH ####[facility] [address] [id number]. Aung Mohamud Urea nitrogen/Creatinine [Mass ratio] 18.3 mg/mg Normal [facility] Comment on above: Performed By: #### L IPID, T7, CMP, TSH ####[facility] [address] [address]Dr. Aung Mohamud TSHon 07-22-2022 TSH 0.706 uIU/mL Normal 0.358-3.740 [facility] Comment on above: Performed By: #### L IPID, T7, CMP, TSH ####[facility] [address] [address]Dr. Aung Mohamud VITAMIN D 25 OHon 07-22-2022 VIT D 25-OH 10.2 ng/mL Normal [facility] Comment on above: Performed By: #### V JOSIE, IRON #### [facility] [address] [address] [address] Aung Mohamud VIT D RANGES SEE BELOW Normal [facility] Comment on above: Result Comment: <20 ng/mL Vit D deficient 20 - <30 ng/mL Vit D insufficient 30 - 100 ng/mL Vit D sufficient >100 ng/mL Potential Toxicity Performed By: #### V ITAD, IRON #### [facility] [address] [address] [address] Aung Mohamud NOVEL CORONAVIRUS NASOPHARYN GEAL - [facility] SPECIMEN ONLYon 09-16-2020 SARS-CoV-2 (COVID-19) RNA JOSE ROBERTO+probe Ql (Unsp spec) Not detected Normal NOT DETECTED [facility] Comment on above: Order Comment: Viral transport media - Collection must be done while wearing N-95 mask, eye protection, gown and gloves. Please label ALL specimens as 2019-nCoV rule out and deliver by hand. This test was performed using [employer] Mediated [employer]ification and has been approved as Emergency Use Authorization (EUA) for the qualitative detection of SARS-CoV-2 nucleic acid. Result Comment: [facility] Negative results do [...] or clinically deteriorating. Performed By: #### L [id number] #### [facility] (DEFAULT) [address] [place] [address] Outside Colonoscopyon 2020 Outside Colonoscopy [id number] C#1.00CD:127 [facility] Lab Reportson 06-24-2020 Lab Reports [id number]#1.00CD:127 [facility] Provider Letter FTMCon 06-21 Provider Letter [facility] Rachel Carvajal, [address] [place] [place] [address] Re: MELISSA ANGEL Date of : 1955 Thank you for your referral of Melissa Angel who was seen on consultation on 2020, for positive occult stool. A colonoscopy is planned for further evaluation. I have enclosed my consultation notes for your review. I will be happy to follow Melissa should her symptoms persist. Sincerely, Hernán Raymundo MD General Surgery [facility] Consent for Procedure/Surger yon 06-19-2020 Consent for Procedure/Surgery [id number]#1.00CD:127 [facility] Facesheeton 06-19-2020 Facesheet [id number] 37#1.00CD:127 Normal [facility] Ambulatory Clinical Summaryo n 06-18-2020 Ambulatory Clinical Summary {[id number]}CD:[id number] Normal [facility] General Surgery Office/Clini c Noteon 06-18-2020 [...] 06/18/2020 Family History Hypertension: Mother and Father. [facility] Comment on above: Result Comment: Elec tronically Signed By: DENIZ STRATTON, Hernán Buchanan\Date and Time Signed: 06/18/20 15:05 EST Physician Referralon 021 Physician Referral [id number]#1.00CD:127 [facility] Encounters Encounter Date Encounter Type Care Provider Facility Start: 05-04-2024 End: 05-04-2024 [facility] Start: 05-04-2024 End: 05-04-2024 [facility] Comment on above: Arrived Start: 05-01-2024 End: 05-01-2024 [facility] Start: 05-01-2024 End: 05-01-2024 Subsequent hospital visit by physician [facility] Comment on above: Arrived Start: 04-27-2024 End: 04-27-2024 [facility] Start: 04-27-2024 End: 04-27-2024 Subsequent hospital visit by physician Maricel [facility] Comment on above: Arrived 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) Start: 04-26-2024 End: 05-09-2024 Telephone encounter Lidia López [facility] - Radiation Oncology Start: 04-26-2024 End: 04-26-2024 ambulatory [facility] Start: 04-24-2024 End: 04-24-2024 [facility] Start: 04-24-2024 End: 04-24-2024 Subsequent hospital visit by physician Wendy Saha PTA [facility] Comment on above: Arrived Start: 04-22-2024 ambulatory [facility] Start: 04-20-2024 End: 04-20-2024 [facility] Start: 04-20-2024 End: 04-20-2024 Subsequent hospital visit by physician Maricel Horan PTA [facility] Physical Therapy Comment on above: Arrived Start: 04-18-2024 End: 04-18-2024 ambulatory [facility] Start: 04-18-2024 End: 04-18-2024 Subsequent hospital visit by physician Paula Mccarty PTA [facility] Physical Therapy Comment on above: Arrived Start: 04-17-2024 [facility]ulatory [facility] Start: 04-11-2024 End: 04-11-2024 [facility] Start: 04-11-2024 End: 04-11-2024 Subsequent hospital visit by physician Paula Mccarty PTA [facility] Physical Therapy Comment on above: Arrived Start: 04-10-2024 End: 04-10-2024 ambulatory [facility] Start: 04-10-2024 End: 04-10-2024 Subsequent hospital visit by physician Levi Armas PT [facility] Physical Therapy Comment on above: Arrived Start: 04-06-2024 End: 04-06-2024 ambulatory [facility] Start: 04-06-2024 End: 04-06-2024 Subsequent hospital visit by physician Henny Kohler PTA [facility] Physical Therapy Comment on above: Arrived Start: 04-03-2024 End: 04-03-2024 ambulatory [facility] Start: 04-03-2024 End: 04-03-2024 Subsequent hospital visit by physician Levi Armas PT [facility] Physical Therapy Comment on above: Arrived Start: 03-30-2024 End: 03-30-2024 ambulatory SHAQ Hudson [facility] Start: 03-30-2024 End: 03-30-2024 Subsequent hospital visit by physician Henny Kohler [employer] [facility] Physical Therapy Comment on above: Arrived Start: 03-28-2024 End: 03-28-2024 ambulatory SHAQ Hudson [facility] Start: 03-28-2024 End: 03-28-2024 Subsequent hospital visit by physician Paula Mccarty [employer] [facility] Physical Therapy Comment on above: Arrived Start: 03-24-2024 End: 03-24-2024 ambulatory SHAQ Hudson [facility] Start: 03-24-2024 End: 03-24-2024 Subsequent hospital visit by physician Bean Koenig [employer] [facility] Physical Therapy Comment on above: Arrived Start: 03-22-2024 ambulatory SHAQ Hudson [facility] Start: 03-06-2024 End: 03-06-2024 ambulatory SHAQ Hudson [facility] Start: 03-06-2024 End: 03-06-2024 Subsequent hospital visit by physician Maricel Horan [employer] [facility] Physical Therapy Comment on above: Arrived Start: 03-02-2024 End: 03-02-2024 ambulatory SHAQ Hudson [facility] Start: 02-29-2024 End: 02-29-2024 ambulatory [facility] Start: 02-29-2024 End: 02-29-2024 Subsequent hospital visit by physician Levi Armas PT [facility] Physical Therapy Comment on above: Arrived Start: 08-31-2023 ambulatory [facility] Start: 08-31-2023 End: 08-31-2023 ambulatory [facility] Start: 04-28-2023 End: 04-28-2023 ambulatory ANETTE RAJPUT Not Available Start: 10-01-[address] DOCTOR CORLEY Facility :[facility] Start: 08-11-2022 End: 08-12-[address] RACHEL CARVAJAL . Facility:[facility] Start: 07-23-2022 End: 07-24-[address] RACHEL CARVAJAL . Facility:[facility] Start: 07-22-2022 End: 07-23-[address] RACHEL CARVAJAL . 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 Phone: Plan of Treatment Date Care Activity Detail Author Start: 02-10-2033 DTaP,Tdap and Td Vac cines (2 - Td or Tdap) DTaP,Tdap and Td Vaccines (2 - Td or Tdap) [facility] Start: 02-10-2033 DTaP/Tdap/Td vaccine (2 - Td or Tdap) DTaP/Tdap/Td vaccine (2 - Td or Tdap) [facility] Start: 01-16-2032 Respiratory Syncytia l Virus (RSV) or age 60 yrs+ (1 - 1-dose 75+ series) Respiratory Syncytial Virus (RSV) or age 60 yrs+ (1 - 1-dose 75+ series) [facility] Start: 04-26-2025 Adult BMI Screening Adult BMI Screen ing [facility] Start: 04-26-2025 Tobacco Screening Tobacco Screening [facility] Start: 11-10-2024 End: 11-10-2024 Patient encounter procedure 11/10/2024 1:30 PM EDT Appointment [facility] [phone] [phone] [facility] Start: 05-04-2024 End: 05-04-2024 Patient encounter procedure 05/04/2024 2:15 PM EST [facility] [address] [place] [phone] Levi Armas, PT [facility] Comment on above: [facility] Start: 05-01-2024 End: 05-01-2024 Patient encounter procedure 05/01/2024 3:00 PM EST Appointment [facility] [address] [place] [phone] Maricel Horan P[facility] Start: 04-27-2024 End: 04-27-2024 Patient encounter procedure 04/27/2024 2:15 PM EST Appointment [facility] [address] [place], [place] [phone] Maricel Horan [facility] Start: 04-24-2024 End: 04-24-2024 Patient encounter procedure [facility] Start: 04-20-2024 End: 04-20-2024 Patient encounter procedure 04/20/2024 2:15 PM EST Appointment [facility] [address] [place] [phone] Maricel Horan [facility] Start: 04-18-2024 End: 04-18-2024 Patient encounter procedure 04/18/2024 12:00 PM EST Appointment [facility] [address] [place], [place] [phone] Paula Mccarty [facility] Start: 04-17-2024 End: 04-17-2024 Patient encounter procedure 04/17/2024 1:45 PM EST Appointment [facility] [address] [place] [phone] Paula Mccarty PTA [facility] Start: 04-11-2024 End: 04-11-2024 Patient encounter procedure 04/11/2024 12:00 PM EST Appointment [facility] [address] [place] [phone] Paula Mccarty PTA [facility] Start: 04-10-2024 End: 04-10-2024 Patient encounter procedure 04/10/2024 12:15 PM EST Appointment [facility] [address] [place] [phone] Levi [facility]as, PT [facility] Comment on above: [facility] Start: 04-06-2024 End: 04-06-2024 Patient encounter procedure 04/06/2024 12:30 PM EST Appointment [facility] [address] [place] [phone] Henny Kohler [facility] Start: 04-03-2024 End: 04-03-2024 Patient encounter procedure [facility] Start: 03-30-2024 End: 03-30-2024 Patient encounter procedure [facility] Start: 03-28-2024 End: 03-28-2024 Patient encounter procedure 03/28/2024 2:45 PM EST [facility]ment [facility] [address] [place], [place] [phone] Paula Mccarty PTA [facility] Start: 03-27-2024 End: 03-27-2024 Patient encounter procedure 03/27/2024 12:45 PM EST [facility]ment [facility] [address] [place], [place] [phone] Maricel oHran PTA [facility] Start: 03-24-2024 End: 03-24-2024 Patient encounter procedure 03/24/2024 1:15 PM EST Appointment [facility] [address] [place] [phone] Henny Kohler PTA [facility] Start: 03-22-2024 End: 03-22-2024 Patient encounter procedure 03/22/2024 1:45 PM EST Appointment [facility] [address] [place] [phone] Maricel Horan PTA [facility] Start: 03-06-2024 End: 03-06-2024 Patient encounter procedure 03/06/2024 12:00 PM EDT Appointment [facility] [address] [place] [phone] Maricel Horan PTA [facility] Start: 03-02-2024 End: 03-02-2024 Patient encounter procedure 03/02/2024 3:45 PM EDT Appointment [facility] [address] [place] [phone] Maricel Horan PTA [facility] Start: 03-02-2024 Annual Wellness Visi t (Medicare) Annual Wellness Visit (Medicare) [facility] Start: 01-16-2024 COVID-19 Vaccine ( season) COVID-19 Vaccine () [facility] Start: 01-16-2024 Influenza vaccination Influenza Vacc ine [facility] Start: 12-16-2023 Influenza vaccination Flu vaccine (# 1) [facility] Start: 2022 Fall Risk Screening Fall Risk Screen ing [facility] Start: 2017 Respiratory Syncytia l Virus (RSV) or age 60 yrs+ (1 - 1-dose 60+ series) Respiratory Syncytial Virus (RSV) or age 60 yrs+ (1 - 1-dose 60+ series) [facility] Start: 01-16-2012 Screening for osteoporosis DEXA (modify frequency per FRAX score) [facility] Start: 2007 Shingles vaccine (1 of 2) Gates gles vaccine (1 of 2) [facility] Start: 2002 Screening for malign ant neoplasm of colon [facility] Start: 1997 Lipid panel Lipids [facility] Start: 1997 Screening for malign ant neoplasm of breast Breast cancer screen [facility] Start: 01-16-1976 Administration of varicella zoster vaccine Zoster (Shingles) Vaccine (1 of 2) [facility] Start: 1975 Hepatitis C screening Hepatitis C sc reen [facility] Start: 1969 Depression Screen Depression Screen [facility] Start: 1969 Depression Screening Depression Scre ening [facility] Start: 1963 Pneumococcal 65+ yea rs Vaccine (1 of 2 - PCV) Pneumococcal 65+ years Vaccine (1 of 2 - PCV) [facility] Start: 1957 Tobacco Counseling Tobacco Counselin deric [facility] Payers Date Payer Category Payer Managed Care Other (unspecified) [facility] [id number] 2022 Unknown [id number]. [id number] 2021 Medicare MEDICARE [id number] 2019 Unknown [id number] 1.2.840.107320.1.13.239. 2.7.3.592697.315 1959 Medicare [id number] 1959 Self-pay 1959 Unknown [id number] 1957 Unknown [id number] 2.16.840.1.884680.3.579. 2.593 1957 Unknown [id number] .16840.1.073889.3.579. 2.593 1957 Unknown [id number] 2.16.840.1.298203.3.579. 2.593 1957 Unknown [id number] 2.16.840.1.118052.3.579. 2.593 1957 Unknown [id number] 2.16.840.1.386836.3.579. 2.593 1957 Unknown [id number] 2.16.840.1.549676.3.579. 2.593 1957 Unknown [id number] 2.16.840.1.173507.3.579. 2.1259 1957 Unknown [id number] 2.16.840.1.726659.3.579. 2.1285 1957 Unknown [id number] 2.16.840.1.778671.3.579. 2.1285 1957 Unknown [id number] 2.16.840.1.816379.3.579. 2.1285 1957 Unknown [id number] 2.16.840.1.671709.3.579. 2.1285 1957 Unknown [id number] 2.16.840.1.392304.3.579. 2.1285 1957 Unknown [id number] 2.16.840.1.083273.3.579. 2.1285 1957 Unknown [id number] 2.16.840.1.191779.3.579. 2. 1957 Unknown [id number] 2.16.840.1.857032.3.579. 2. 1957 Unknown [id number] 2.16.840.1.741419.3.579. 2. 1957 Unknown [id number] 2.16.840.1.206379.3.579. 2.173 1957 Unknown [id number] 2.16.840.1.917991.3.579. 2.173 1957 Unknown [id number] 2.16.840.1.097031.3.579. 2.173 1957 Unknown [id number] 2.16.840.1.340914.3.579. 2. 1957 Unknown [id number] 2.16.840.1.905024.3.579. 2.173 1957 Unknown [id number] 2.16.840.1.518343.3.579. 2.173 1957 Unknown [id number] 2.16.840.1.547271.3.579. 2.173 1957 Unknown [id number] 2.16.840.1.648261.3.579. 2.173 1957 Unknown [id number] 2.16.840.1.856478.3.579. 2.173 1957 Unknown [id number] 2.16.840.1.078271.3.579. 2.173 1957 Unknown [id number] 2.16.840.1.512031.3.579. 2.173 1957 Unknown [id number] 2.16.840.1.558307.3.579. 2.173 1957 Unknown [id number] 2.16.840.1.145680.3.579. 2.173 1957 Unknown [id number] 2.16.840.1.616173.3.579. 2.173 1957 Unknown [id number] 2.16.840.1.002128.3.579. 2.173 Social History Date Type Detail Facility Start: 09-15-2020 End: 04-26-2024 Tobacco smoking status AKIS Smokes tobacco daily [facility] History of tobacco use Cigarette Smoker B on [facility] Start: 09-15-2020 End: 04-26-2024 Tobacco use and exposure Smokeless tobacco non-user [facility] Start: 09-15-2020 Alcoholic beverage intake Curr ent non-drinker of alcohol (finding) [facility] Start: 09-04-2020 End: 09-15-2020 History of Social function [facility] Start: 09-04-2020 End: 09-15-2020 Tobacco use panel [facility] Start: 1955 Sex assigned at Not on file B on [facility] Start: 04-26-2024 Alcoholic beverage intake Ex-drinker (finding) [facility] Do you belong to any clubs or organizations such as shinto groups, unions, fraternal or athletic groups, or school groups? No [facility] Are you now , , , , never or living with a partner? [facility] How often to you hav e a drink containing alcohol? Never [facility] Average Number of Drinks Not on file [facility] Do you feel stress - tense, restless, nervous, or anxious, or unable to sleep at night because your mind is troubled all the time - these days [OSQ] Only a little [facility] Start: 09-04-2020 Education 12 [facility] Start: 08-28-2020 Sex Female (finding) [facility] Clinical Notes 03-06-2024 to 04-27-2024 Maricel Horan PTA - 04/27/2024 2:15 PM ESTTelephone Encounter - Lidia Beckett - 04/26/2024 2:01 PM ESTTelephone Encounter - SARINA Ritter - 04/26/2024 2:01 PM EST Note Date & Type Note Facility 04-27-2024 History of Presen t illness Narrative [facility] Daily Note Patient: Melissa Angel : 1955 CSN #: [id number] Referring Physician: Shaq Chavez MD Date: 04/27/2024 [...] interventions and modalities to decrease pain -MET Alf Goals Time Frame for Alf Goals : 5 weeks Alf Goal 1: Patient will be independent and compliant with a HEP -MET Alf Goal 2: Patient will improve R shoulder ROM to match L for ADLs. -progressing Fitter Hand Goal 3: Patient will improve R shoulder strength to >/= 4/5 in all major joints and planes. -progressing Alf Goal 4: Patient will report 70% improvement in overall symptoms and function. -MET Minutes Tracking: Time In: 1415 Time Out: 1505 Minutes: 50 Timed Code Treatment Minutes: 48 Minutes Maricel Horan PTA Date: 04/27/2024 documented in this encounter [facility] 04-26-2024 Miscellaneous Notes Formattin g of this note might be different from the original. Dr. Sotelo's office (endocrine) called and you made a referral to them for patient and they are not accepting new patients at this time. I called and spoke to Melissa. Will redirect the referral to Dr. Otoniel Herring in [place] as this is closer to her house. Will refax order to his office documented in this encounter [facility] 04-26-[address] enc[address] er Note Dr. Sotelo's office (endocrine) called and you made a referral to them for patient and they are not accepting new patients at this time. [facility] 04-26-2024 Telephone encount er Note I called and spoke to Melissa. Will redirect the referral to Dr. Otoniel Herring in [place] as this is closer to her house. Will refax order to his office [facility] Work Phone: 04-20-2024 History of Presen t illness Narrative [facility] Daily Note Patient: Melissa Angel : 1955 CSN #: [id number] Referring Physician: Shaq Chavez MD Date: 04/20/2024 [...] interventions and modalities to decrease pain -MET Fitter Hand Goals Time Frame for Fitter Hand Goals : 5 weeks Fitter Hand Goal 1: Patient will be independent and compliant with a HEP -MET Fitter Hand Goal 2: Patient will improve R shoulder ROM to match L for ADLs. -progressing Fitter Hand Goal 3: Patient will improve R shoulder strength to >/= 4/5 in all major joints and planes. -progressing Fitter Hand Goal 4: Patient will report 70% improvement in overall symptoms and function. -progressing Minutes Tracking: Time In: 1413 Time Out: 1508 Minutes: 55 Timed Code Treatment Minutes: 54 Minutes Maricel Horan PTA Date: 04/20/2024 documented in this encounter [facility] 04-11-2024 History of Presen t illness Narrative [facility] Daily Note Patient: Melissa Angel : 1955 [facility] #: [id number] Referring Physician: Shaq Chavez MD Date: 04/11/2024 [...] interventions and modalities to decrease pain -MET Alf Goals Time Frame for Fitter Hand Goals : 5 weeks Alf Goal 1: Patient will be independent and compliant with a HEP -MET Fitter Hand Goal 2: Patient will improve R shoulder ROM to match L for ADLs. -progressing Fitter Hand Goal 3: Patient will improve R shoulder strength to >/= 4/5 in all major joints and planes. -progressing Fitter Hand Goal 4: Patient will report 70% improvement in overall symptoms and function. -progressing Minutes Tracking: Time In: 1201 Time Out: 1255 Minutes: 54 Paula Mccarty, NECK BAND OPERATOR Date: 04/11/2024 documented in this encounter [facility] 04-10-2024 History of Presen t illness Narrative [facility] Daily Note Patient: Melissa Angel : 1955 CSN #: [id number] Referring Physician: Shaq Chavez MD Date: 04/10/2024 Treatment Diagnosis: Subacromial bursitis, shoulder impingement Onset Date: 02/28/22 PT Insurance Information: Jessenia Augustthompson Total # of Visits Approved: 16 Per [...] interventions and modalities to decrease pain -MET Fitter Hand Goals Time Frame for Alf Goals : 5 weeks Fitter Hand Goal 1: Patient will be independent and compliant with a HEP -MET Fitter Hand Goal 2: Patient will improve R shoulder ROM to match L for ADLs. -progressing Fitter Hand Goal 3: Patient will improve R shoulder strength to >/= 4/5 in all major joints and planes. -progressing Fitter Hand Goal 4: Patient will report 70% improvement in overall symptoms and function. -progressing Minutes Tracking: Time In: 1215 Time Out: 1305 Minutes: 50 Timed Code Treatment Minutes: 48 Minutes Levi Armas PT, DPT, OCS, Cert. DN Date: 04/10/2024 documented in this encounter [facility] 04-06-2024 History of Presen t illness Narrative [facility] Daily Note Patient: Melissa Angel : 1955 CSN #: [id number] Referring Physician: Shaq Chavez MD Date: 04/06/2024 [...] interventions and modalities to decrease pain -MET Alf Goals Time Frame for Fitter Hand Goals : 5 weeks Alf Goal 1: Patient will be independent and compliant with a HEP -MET Fitter Hand Goal 2: Patient will improve R shoulder ROM to match L for ADLs. -progressing Alf Goal 3: Patient will improve R shoulder strength to >/= 4/5 in all major joints and planes. -progressing Alf Goal 4: Patient will report 70% improvement in overall symptoms and function. -progressing Minutes Tracking: Time In: 1230 Time Out: 1330 Minutes: 60 Timed Code Treatment Minutes: 58 Minutes Henny Kohler PTA Date: 04/06/2024 documented in this encounter [facility] 04-03-2024 History of Presen t illness Narrative [facility] Daily Note Patient: Melissa Angel : 1955 CSN #: [id number] Referring Physician: Shaq Chavez MD Date: 04/03/2024 Treatment Diagnosis: Subacromial bursitis, shoulder impingement Onset Date: 02/28/22 PT Insurance Information: Jessenia Jay Jay Total # of Visits Approved: 16 Per [...] and 6 follow-up appointments working 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 Activity Tolerance Activity Tolerance: Patient tolerated treatment well Patient Education Patient Education: New HEP Pt verbalized/demonstrated good understanding: [x] Yes [] No, pt required further clarification. Post Treatment Pain: 1-2 Plan Plan Frequency: 2 Plan weeks: 6 Goals (Total # of Visits to Date: 7) Short Term Goals Time Frame for Short Term Goals: 3 weeks Short Term Goal 1: Patient will be initiated with a HEP -MET Short Term Goal 2: Patient will tolerate manual interventions and modalities to decrease pain -MET Alf Goals Time Frame for Alf Goals : 5 weeks Alf Goal 1: Patient will be independent and compliant with a HEP -MET Alf Goal 2: Patient will improve R shoulder ROM to match L for ADLs. -progressing Fitter Hand Goal 3: Patient will improve R shoulder strength to >/= 4/5 in all major joints and planes. -progressing Alf Goal 4: Patient will report 70% improvement in overall symptoms and function. -progressing Minutes Tracking: Time In: 1245 Time Out: 1335 Minutes: 50 Timed Code Treatment Minutes: 48 Minutes Levi Armas PT, DPT, OCS, Cert. DN Date: 04/03/2024 documented in this encounter [facility] 03-30-2024 History of Presen t illness Narrative [facility] Daily Note Patient: Melissa Angel : 1955 CSN #: [id number] Referring Physician: Shaq Chavez MD Date: 03/30/2024 Treatment Diagnosis: Subacromial bursitis, shoulder impingement Onset Date: 02/28/22 PT Insurance Information: Jessenia Goyal Total # of Visits Approved: 10 Per Physician Order Total # of Visits to Date: 6 No Show: 0 Canceled Appointment: 0 04/14/24 Plan of Care/Recert Due Pre-Treatment Pain: 07/24 Subjective: Patient reports R shoulder pain /10 prior to session. Exercises: Exercise 1: HEP: [...] pt required further clarification. Post Treatment Pain: 10 Plan Plan Frequency: 2 Plan weeks: 6 Goals (Total # of Visits to Date: 6) Short Term Goals Time Frame for Short Term Goals: 3 weeks Short Term Goal 1: Patient will be initiated with a HEP -MET Short Term Goal 2: Patient will tolerate manual interventions and modalities to decrease pain -MET Alf Goals Time Frame for Fitter Hand Goals : 5 weeks Alf Goal 1: Patient will be independent and compliant with a HEP -MET Fitter Hand Goal 2: Patient will improve R shoulder ROM to match L for ADLs. -progressing Alf Goal 3: Patient will improve R shoulder strength to >/= 4/5 in all major joints and planes. -progressing Alf Goal 4: Patient will report 70% improvement in overall symptoms and function. -progressing Minutes Tracking: Time In: 1400 Time Out: 1500 Minutes: 60 Timed Code Treatment Minutes: 57 Minutes Henny Kohler, NECK BAND OPERATOR Date: 03/30/2024 documented in this encounter [facility] 03-24-2024 History of Presen t illness Narrative [facility] Daily Note Patient: Melissa Angel : 1955 CSN #: [id number] Referring Physician: Shaq Chavez MD Date: 03/24/2024 Treatment Diagnosis: Subacromial bursitis, shoulder impingement Onset Date: 02/28/22 PT Insurance Information: Jessenia Goyal Total # of Visits Approved: 10 Per Physician Order Total # of Visits to Date: 4 No Show: 0 Canceled Appointment: 0 04/14/24 Plan of Care/Recert Due Pre-Treatment Pain: 08/24 Subjective: Pt reports she was gone for a bit traveling to [place] to see her parents. Pt rates current R shoulder pain a 3-10. Exercises: Exercise 1: HEP: Therapy ball circles, [...] interventions and modalities to decrease pain -MET Alf Goals Time Frame for Alf Goals : 5 weeks Alf Goal 1: Patient will be independent and compliant with a HEP -MET Fitter Hand Goal 2: Patient will improve R shoulder ROM to match L for ADLs. -progressing Alf Goal 3: Patient will improve R shoulder strength to >/= 4/5 in all major joints and planes. -progressing Fitter Hand Goal 4: Patient will report 70% improvement in overall symptoms and function. -progressing Minutes Tracking: Time In: 830 Time Out: 928 Minutes: 58 Timed Code Treatment Minutes: 55 Minutes Bean Koenig PTA Date: 03/24/2024 documented in this encounter [facility] 03-06-2024 History of Presen t illness Narrative [facility] Daily Note Patient: Melissa Angel : 1955 CSN #: [id number] Referring Physician: Shaq Chavez MD Date: 03/06/2024 Diagnosis: R rotator [...] 2 weeks as she will be in [place]. Exercises: Exercise 1: HEP: Therapy ball circles, [...] interventions and modalities to decrease pain -MET Fitter Hand Goals Time Frame for Alf Goals : 5 weeks Fitter Hand Goal 1: Patient will be independent and compliant with a HEP -MET Fitter Hand Goal 2: Patient will improve R shoulder ROM to match L for ADLs. -progressing Fitter Hand Goal 3: Patient will improve R shoulder strength to >/= 4/5 in all major joints and planes. -progressing Fitter Hand Goal 4: Patient will report 70% improvement in overall symptoms and function. -progressing Minutes Tracking: Time In: 1200 Time Out: 1255 Minutes: 55 Timed Code Treatment Minutes: 54 Minutes Maricel Horan PTA Date: 03/06/2024 documented in this encounter [facility] Evaluation note Diagnosis Papillary thyroid carcinoma (CMS-HCC)- Primary documented in this encounter [facility] System[facility]ructionsNot on filedocumented in this encounter [facility] Summary Purpose Family History No Family History Records FoundNo Family History Records FoundNo Family History Records FoundNo Family History Records FoundNo Family History Records FoundNo Family History Records FoundNo Family History Records Found Advance Directives Date Activated Date Inactivated Comments 09/15/2020 5:39 PM 09/16/2020 2:34 PM Additional Source Comments INFORMATION SOURCE (unrecogn ized section and content) DATE CREATED AUTHOR 07/13/2020 [facility] DATE CREATED AUTHOR AUTHOR'S ORGANIZ ATION 09/17/2020 [facility] DATE CREATED AUTHOR AUTHOR'S ORGANIZ ATION 09/28/2022 [facility] DATE CREATED AUTHOR AUTHOR'S ORGANIZ ATION 04/30/2023 [facility] EPIC DATE CREATED AUTHOR AUTHOR'S ORGANIZ ATION 04/26/2024 [facility] DATE CREATED AUTHOR AUTHOR'S ORGANIZ ATION 04/29/2024 [facility] DATE CREATED AUTHOR AUTHOR'S ORGANIZ ATION 05/08/2024 [facility] Care Teams (unrecognized sec tion and content) Delivery Supervisor Relationship Specialty Start Date End Date Rachel Carvajal MD [address] [place] [address] PCP - General Family Medicine 09/15/20 Delivery Supervisor Relationship Specialty Start Date End Date Rachel Carvajal MD [address] [id number] PCP - General Family Medicine 09/15/20 Delivery Supervisor Relationship Specialty Start Date End Date Rachel Carvajal MD [address] [id number] PCP - General Family Medicine 09/15/20 Delivery Supervisor Relationship Specialty Start Date End Date Rachel Carvajal MD [address] [id number] PCP - General Family Medicine 09/15/20 Delivery Supervisor Relationship Specialty [place] [address] [place] [address] PCP - General Family Medicine 09/15/20 Delivery Supervisor Relationship Specialty Start [place] [address] [place], [place] [id number] PCP - General Family Medicine 09/15/20 Delivery Supervisor Relationship Specialty Start Date End Date Rachel Carvajal MD [address] [id number] PCP - General Family Medicine 09/15/20 Delivery Supervisor Relationship Specialty Start Date End Date Rachel Carvajal MD [address] [id number] PCP - General Family Medicine 09/15/20 Delivery Supervisor Relationship Specialty Start Date End Date Rachel Carvajal MD [address] [id number] PCP - General Family Medicine 09/15/20 Delivery Supervisor Relationship Specialty Start Date End Date Rachel Carvajal MD [address] [place] [id number] PCP - General Family Medicine 09/15/20 Delivery Supervisor Relationship Specialty Start Date End Date Rachel Carvajal MD PCP - General Family Medicine 08/28/20 Delivery Supervisor Relationship Specialty Start Date End Date Rachel Carvajal MD PCP - General Family [facility] 08/28/20 FOR RECORDS PERTAINING TO PATIENTS WHO [...] BE BASED ON THE PRIMARY CLINICAL RECORDS. [facility] provides no warranty or guarantee of the accuracy or completeness of information in this document.
== END 2024-09-25 12:47 | disposition home or self-care (01) ==
LOC: US 12:49
PROVIDERS: PCP Family Medicine
DX: C73 Malignant neoplasm of thyroid gland (principal); Z92.3 Personal history of irradiation
CPT/HCPCS: 76536

== ENCOUNTER 2024-09-25 12:53 | Outpatient (OUT) | payer MEDICARE, OTHER, SELFPAY ==
--- NOTE | 2024-09-25 13:08 | MM_ITS ---
Patient Name: ANGEL ANGEL MR#: [id number] : 1955 Exam Date: 09/25/2024 Ordering Doctor: DR RACHEL FUENTES . RADIOLOGY REPORT PROCEDURE: MM TOMOSYNTHESIS SCREENING BI COMPARISON: MM TOMOSYNTHESIS SCREENING BI, 09/15/2023. MG MAMM SCREEN 3D [place] CAD, 07/23/2022. MG MAMM SCREEN 3D [place] CAD, 12/11/2020. INDICATIONS: Screening Calculator Name NCI Breast Cancer Risk Assessment Tool 5 Year Breast Cancer Risk 0.80% Lifetime Breast Cancer Risk 2.90% Personal Breast Cancer No Personal Ovarian Cancer No Treatments None Family Cancers Aunt-maternal with breast cancer at age 50; Brother with oral cancer at age 55; Brother with colon cancer at age 62. LOCATION: [facility] BREAST COMPOSITION: There are scattered areas of fibroglandular density. FINDINGS: DIAGNOSTIC CATEGORY 1--NEGATIVE. RIGHT BREAST: No significant suspicious finding. LEFT BREAST: No significant suspicious finding. RECOMMENDATIONS: ROUTINE MAMMOGRAM AND CLINICAL EVALUATION IN 12 MONTHS. PLEASE NOTE: A NORMAL MAMMOGRAM DOES NOT EXCLUDE THE POSSIBILITY OF BREAST CANCER. A CLINICALLY SUSPICIOUS PALPABLE LUMP SHOULD BE BIOPSIED. Dictated by: Aj Llamas DO on 09/25/2024 at 15:52 Approved by: Aj Llamas DO on 09/25/2024 at 15:53
--- NOTE | 2024-09-25 13:08 | CT_ITS ---
The [address] [address] Patient Name: ANGEL ANGEL MRN: [id number] date: 1955 Sex: F Assigned Patient Location: MAMMO Current Patient Location: [place] Accession/Order Number: [id number] Exam Date: 09/25/2024 14:58 Report Date: 09/25/2024 15:03 At the request of: RACHEL FUENTES MD Procedure: CT lung screening low-dose CT CHEST WITHOUT CONTRAST, LOW DOSE SCREENING: CLINICAL DATA: A 69-year old current smoker COMPARISON: Lung screen 08/16/2023 TECHNIQUE: Noncontrast axial CT scan images of the chest were obtained under the low dose screening CT protocol. Coronal and sagittal reconstructed images were also submitted. FINDINGS: Mediastinum : Suboptimal evaluation due to low-dose technique. Thoracic aorta appears normal in caliber. Pulmonary trunk appears nondilated. No pericardial effusion. No lymphadenopathy. The esophagus is grossly unremarkable. Lungs: No focal consolidation, pneumothorax or pleural effusion. Trachea and distal airways appear patent. Emphysema. Mild bronchial wall thickening. Mild lung scarring. Stable 4 mm nodule involving the lingula series 4 image 52. Additional small noncalcified pulmonary nodules scattered throughout both lungs grossly unchanged. No new or enlarging suspicious pulmonary nodule. Upper abdomen: No acute findings.. Liver cysts. Bony thorax and chest wall: Soft tissues surrounding the chest wall demonstrate no acute findings. Osseous structures demonstrate degenerative change. CT/CT lung screening low-dose IMPRESSION: NO NEW OR ENLARGING SUSPICIOUS PULMONARY NODULES. LUNG - RADS Version 1.0 Assessment: Category 2, Benign appearance or behavior. Management: Continue annual lung screening with LDCT in 12 months. Impression dictated by: Aj Llamas Jr., D.O. 09/25/2024 3:03 PM Dictation Location: [place] [address] Electronically authenticated by: [id number] Y Date: 09/25/2024 15:03
--- OUTSIDE RECORDS SUMMARY | 2024-09-25 13:14 | XMS_ITS | CCD ---
Author Organization [facility] Care Team Providers Care Credit Assistant Name Role Phone ALFREDO ., DR RAMOS [...] Unavailable Rachel Carvajal MD Primary Care Provider [phone] FITOY, RACHEL M Referring Unavailable HOY, RACHEL [...] Unavailable HOY, RACHEL M Primary Care Unavailable KENOSHAQ Referring Unavailable HOY, RACHEL M Primary Care Unavailable KENOSHAQ Referring Unavailable HOY, RACHEL M Primary Care Unavailable HOY, RACHEL M Primary Care Unavailable SHAQ CHAVEZ Referring Unavailable CHAVEZSHAQ Referring Unavailable HOY, RACHEL M Primary Care Unavailable CHAVEZSHAQ Referring Unavailable HOY, RACHEL M Primary Care Unavailable KENOSHAQ Referring Unavailable HOY, RACHEL M Primary Care Unavailable KENO, SHAQ Hudson Referring Unavailable HOY, RACHEL M Primary Care Unavailable KENO, SHAQ Hudson Referring Unavailable HOY, RACHEL M Primary Care Unavailable KENO, SHAQ Hudson Referring Unavailable HOY, RACHEL M Primary Care Unavailable KENO, SHAQ Hudson Referring Unavailable HOY, RACHEL M Primary Care Unavailable KENO, SHAQ Hudson Referring Unavailable HOY, RACHEL M Primary Care Unavailable KENOSHAQ Referring Unavailable HOY, RACHEL M Primary Care Unavailable KENOSHAQ Referring Unavailable HOY, RACHEL M Primary Care Unavailable KENOSHAQ Referring Unavailable HOY, RACHEL M Primary Care Unavailable KENO, SHAQ Hudson Referring Unavailable HOY, RACHEL M Primary Care Unavailable Rachel Carvajal MD Primary Care Provider [phone] Medications Current Medications Medication Drug Class(es) [...] OBULINon 08-12-2022 Thyroglobulin Antibody <1.0 Normal 0.0-0.9 [facility] Comment on above: Result Comment: Thyr oglobulin Antibody measured by Antonio Brightwood Methodology Performed By: #### T HYGIMA #### [facility] [address] [address] [address] Aung Mohamud Thyroglobulin by CUONG 0.1 ng/mL Critically low 1.5-38.5 [facility] Comment on above: Result Comment: [...] 0.1 ng/mL . Thyroglobulin measured by Antonio Brightwood Immunometric Assay Performed By: #### T HYGIMA #### [facility] [address] [address] [address] LUNG CANCER SCREENINGon [...] by: SHAQ OSORIO Date: 2022-08-11 14:16 Normal [facility] TSHon 08-11-2022 TSH 0.766 uIU/mL Normal 0.358-3.740 [facility] Comment on above: Performed By: #### T SH #### [facility] [address] [place] [address] Dr. Aung Mohamud XR DEXA BONE DENSITYon [...] SHAQ OSORIO Date: 2022-08-11 13:42 Normal [facility] INSULINon 07-23-2022 Insulin 7.2 uIU/mL Normal 2.6-24.9 [facility] Comment on above: Performed By: #### I NSULIN #### [facility] [address] [place] [address] Dr. Aung Mohamud MG MAMM SCREEN 3D GALINA CADon 07-23-2022 MG MAMM SCREEN 3D GALINA CAD Patient: MELISSA ANGEL I. Exam Date: 07/23/2022 : 1955 Gender:F Ordering : DR RACHEL CARVAJAL . Admission #: [id number] Family : Order #: [id number] CLICK HERE TO VIEW EXAM RADIOLOGY REPORT [...] colon cancer at age 64. LOCATION: [facility] BREAST COMPOSITION: Extremely dense, which lowers [...] M.D. on 07/24/2022 at 07:53 Normal [facility] CBC AUTO DIFFon 07-22-2022 BASO # 0.0 103/ul Normal 0.0-0.1 [facility] Comment on above: Performed By: #### C BC #### [facility] [address] [address] [address] Aung Mohamud Basophils/100 WBC (Bld) 0.2 % Normal 0.2-2.0 [facility] Comment on above: Performed By: #### C BC #### [facility] [address] [address] [address] Aung Mohamud EO # 0.1 103/ul Normal 0.0-0.7 [facility] Comment on above: Performed By: #### C BC #### [facility] [address] [address] [address] Aung Mohamud Eosinophils/100 WBC (Bld) 2.4 % Normal 0.9-7.0 [facility] Comment on above: Performed By: #### C BC #### [facility] [address] [address] [address] Aung Mohamud Erythrocyte distribution width (RBC) [Ratio] 14.1 % Normal 11.0-15.0 [facility] Comment on above: Performed By: #### C BC #### [facility] [address] [place] [address] Dr. Aung Mohamud Hematocrit (Bld) [Volume fraction] 43.3 % Normal 36.0-48.0 [facility] Comment on above: Performed By: #### C BC #### [facility] [address] [place] [address] Dr. Aung Mohamud Hemoglobin (Bld) [Mass/Vol] 14.5 g/dL Normal 12.0-16.0 [facility] Comment on above: Performed By: #### C BC #### [facility] [address] [place] [address] Dr. Aung Mohamud IG # 0.02 10e3/ul Normal 0.00-0.03 [facility] Comment on above: Performed By: #### C BC #### [facility] [address] [place] [address] Dr. Aung Mohamud IG % 0.3 % Normal 0.0-0.5 [facility] Comment on above: Performed By: #### C BC #### [facility] [address] [place] [address] Dr. Aung Mohamud LYMPH # 1.5 103/ul Normal 1.2-3.8 [facility] Comment on above: Performed By: #### C BC #### [facility] [address] [place] [address] Dr. Aung Mohamud Lymphocytes/100 WBC (Bld) 24.6 % Normal 20.5-60.0 [facility] Comment on above: Performed By: #### C BC #### [facility] [address] [place] [address] Dr. Aung Mohamud MANUAL DIFF REQ NO Normal [facility] Comment on above: Performed By: #### C BC #### [facility] [address] [place] [address] Dr. Aung Mohamud MCH (RBC) [Entitic mass] 31.1 pg Normal 26.7-34.0 [facility] Comment on above: Performed By: #### C BC #### [facility] [address] [address] [address] Aung Mohamud MCHC (RBC) [Mass/Vol] 33.5 g/dL Normal 29.9-35.2 [facility] Comment on above: Performed By: #### C BC #### [facility] [address] [place] [address] Dr. Aung Mohamud MCV (RBC) [Entitic vol] 92.9 fL Normal 81.0-99.0 [facility] Comment on above: Performed By: #### C BC #### [facility] [address] [place] [address] Dr. Aung Mohamud MONO # 0.3 103/ul Normal 0.3-0.8 [facility] Comment on above: Performed By: #### C BC #### [facility] [address] [place] [address] Dr. Aung Mohamud Monocytes/100 WBC (Bld) 4.9 % Normal 1.7-12.0 [facility] Comment on above: Performed By: #### C BC #### [facility] [address] [place] [address] Dr. Aung Mohamud NEUT # 4.0 103/ul Normal 1.4-6.5 [facility] Comment on above: Performed By: #### C BC #### [facility] [address] [place] [address] Dr. Aung Mohamud Neutrophils/100 WBC (Bld) 67.6 % Normal 43.0-75.0 [facility] Comment on above: Performed By: #### C BC #### [facility] [address] [place] [address] Dr. Aung Mohamud Platelet mean volume (Bld) [Entitic vol] 10.2 fL Normal 9.5-13.5 [facility] Comment on above: Performed By: #### C BC #### [facility] [address] [place] [address] Dr. Aung Mohamud PLT 333 103/ul Normal 150-450 [facility] Comment on above: Performed By: #### C BC #### [facility] [address] [address] [address] Aung Mohamud RBC 4.66 106/ul Normal 4.20-5.40 [facility] Comment on above: Performed By: #### C BC #### [facility] [address] [address] [address] Aung Mohamud WBC 5.9 103/ul Normal 4.0-11.0 [facility] Comment on above: Performed By: #### C BC #### [facility] [address] [address] [address] Aung Mohamud FREE THYROXINE INDEX T7on FTI 5.00 Critically high 1.30-4.50 [facility] Comment on above: Performed By: #### L IPID, T7, CMP, TSH ####[facility] [address] [address]Dr. Aung Mohamud T3U 37.0 % Normal 30.0-39.0 [facility] Comment on above: Performed By: #### L IPID, T7, CMP, TSH ####[facility] [address] [id number] Aung Mohamud T4 [Mass/Vol] 13.50 ug/dL Normal 4.80-13.90 [facility] Comment on above: Performed By: #### L IPID, T7, CMP, TSH ####[facility] [address] [address]Dr. Aung Mohamud GLYCOHEMOGLOBIN A1Con 2022 ADA RECOMMENDATION SEE BELOW Normal [facility] Comment on above: Result Comment: ADA RECOMMENDED LIMIT 4.0 - 6.0 ADA THERAPEUTIC TARGET < 7.0 ACTION SUGGESTED > 7.0 Performed By: #### A 1C #### [facility] [address] [address] [address] Aung Mohamud Glucose [Mass/Vol] 117 mg/dL Normal [facility] Comment on above: Performed By: #### A 1C #### [facility] [address] [address] [address] Aung Mohamud HbA1c (Bld) [Mass fraction] 5.7 % Normal 4.5-6.2 [facility] Comment on above: Performed By: #### A 1C #### [facility] [id number] Aung Mohamud IRONon 07-22-2022 Iron [Mass/Vol] 118.0 ug/dL Normal 50.0-170.0 [facility] Comment on above: Performed By: #### V ITAD, IRON #### [facility] [id number] Aung Mohamud LIPID PROFILEon 07-22-2022 CHOL-HDL RATIO NORM SEE BELOW Normal [facility] Comment on above: Result Comment: 3.3 - 4.4 LOW RISK 4.4 - 7.1 AVERAGE RISK 7.1 - 11.0 MODERATE RISK >11.0 HIGH RISK Performed By: #### L IPID, T7, CMP, TSH ####[facility] [address] [id number]. Aung Mohamud Cholesterol [Mass/Vol] 209 mg/dL Critically high <=200 [facility] Comment on above: Performed By: #### L IPID, T7, CMP, TSH ####[facility] [address] [address]Dr. Aung Mohamud Cholesterol in HDL [Mass/Vol] 66 mg/dL Critically high 40-60 [facility] Comment on above: Performed By: #### L IPID, T7, CMP, TSH ####[facility] [address] [id number]. Aung Mohamud Cholesterol in LDL [Mass/Vol] 118.8 mg/dL Normal [facility] Comment on above: Performed By: #### L IPID, T7, CMP, TSH ####[facility] [address] [id number]. Aung Mohamud Cholesterol.total/Cho lesterol in HDL [Mass ratio] 3.2 {ratio} Normal [facility] Comment on above: Performed By: #### L IPID, T7, CMP, TSH ####[facility] [address] [id number]. Aung Mohamud HDL NORMAL > or = 60 mg/dl - LOW CARDIOVASCULAR RISK <40 mg/dl - HIGH CARDIOVASCULAR RISK Normal [facility] Comment on above: Performed By: #### L IPID, T7, CMP, TSH ####[facility] [address] [address]Dr. Aung Mohamud LDL CALC NORMAL SEE BELOW Normal [facility] Comment on above: Result Comment: <100 mg/dl OPTIMAL 100 - 129 mg/dl NEAR OR ABOVE OPTIMAL 130 - 159 mg/dl BORDERLINE HIGH 160 - 189 mg/dl HIGH >190 mg/dl VERY HIGH Performed By: #### L IPID, T7, CMP, TSH ####[facility] [address] [address]Dr. Aung Mohamud Triglyceride [Mass/Vol] 121 mg/dL Normal <=150 [facility] Comment on above: Performed By: #### L IPID, T7, CMP, TSH ####[facility] [address] [address]Dr. Aung Mohamud VLDL CALC 24.2 mg/dL Normal [facility] Comment on above: Performed By: #### L IPID, T7, CMP, TSH ####[facility] [address] [address]Dr. Aung Mohamud PROF 14(COMP METB)on 023 Albumin [Mass/Vol] 3.7 g/dL Normal 3.4-5.0 [facility] Comment on above: Performed By: #### L IPID, T7, CMP, TSH ####[facility] [address] [address]Dr. Aung Mohamud Albumin/Globulin [Mass ratio] 0.9 {ratio} Normal [facility] Comment on above: Performed By: #### L IPID, T7, CMP, TSH ####[facility] [address] [address]Dr. Aung Mohamud ALP [Catalytic activity/Vol] 171 U/L Critically high 46-116 [facility] Comment on above: Performed By: #### L IPID, T7, CMP, TSH ####[facility] [address] [address]Dr. Aung Mohamud ALT [Catalytic activity/Vol] 16 U/L Normal 14-59 [facility] Comment on above: Performed By: #### L IPID, T7, CMP, TSH ####[facility] [address] [address]Dr. Aung Mohamud Anion gap [Moles/Vol] 10.9 mmol/L Normal [facility] Comment on above: Performed By: #### L IPID, T7, CMP, TSH ####[facility] [address] [address]Dr. Aung Mohamud AST [Catalytic activity/Vol] 18 U/L Normal 15-37 [facility] Comment on above: Performed By: #### L IPID, T7, CMP, TSH ####[facility] [address] [address]Dr. Rosalinaharvey Mohamud Bilirubin [Mass/Vol] 0.3 mg/dL Normal 0.2-1.0 [facility] Comment on above: Performed By: #### L IPID, T7, CMP, TSH ####[facility] [address] [place], [place] [address]Dr. Rosalinaharvey Mohamud Calcium [Mass/Vol] 9.4 mg/dL Normal 8.5-10.1 [facility] Comment on above: Performed By: #### L IPID, T7, CMP, TSH ####[facility] [address] [address]Dr. Aung Mohamud Chloride [Moles/Vol] 103 mmol/L Normal 98-107 [facility] Comment on above: Performed By: #### L IPID, T7, CMP, TSH ####[facility] [address] [place], [place] [address]Dr. Aung Mohamud CO2 [Moles/Vol] 27.8 mmol/L Normal 21.0-32.0 [facility] Comment on above: Performed By: #### L IPID, T7, CMP, TSH ####[facility] [address] [address]Dr. Aung Mohamud Creatinine [Mass/Vol] 0.71 mg/dL Normal 0.55-1.02 [facility] Comment on above: Performed By: #### L IPID, T7, CMP, TSH ####[facility] [address] [address]Dr. Aung Mohamud EGFR-AF BRITISH >60 Normal >=[address] [facility] Comment on above: Performed By: #### L IPID, T7, CMP, TSH ####[facility] [address] [address]Dr. Aung Mohamud EGFR-NON AF BRITISH >60 Normal >=60 [facility] Comment on above: Performed By: #### L IPID, T7, CMP, TSH ####[facility] [address] [address]Dr. Aung Mohamud Globulin (S) [Mass/Vol] 4.3 g/dL Normal [facility] Comment on above: Performed By: #### L IPID, T7, CMP, TSH ####[facility] [address] [place], [place] [address]Dr. Aung Mohamud Glucose [Mass/Vol] 91 mg/dL Normal 74-106 [facility] Comment on above: Performed By: #### L IPID, T7, CMP, TSH ####[facility] [address] [address]Dr. Aung Mohamud Potassium [Moles/Vol] 3.7 mmol/L Normal 3.5-5.1 [facility] Comment on above: Performed By: #### L IPID, T7, CMP, TSH ####[facility] [address] [address]Dr. Aung Mohamud Protein [Mass/Vol] 8.0 g/dL Normal 6.4-8.2 [facility] Comment on above: Performed By: #### L IPID, T7, CMP, TSH ####[facility] [address] [address]Dr. Rosalinaharvey Mohamud Sodium [Moles/Vol] 138 mmol/L Normal 136-145 [facility] Comment on above: Performed By: #### L IPID, T7, CMP, TSH ####[facility] [address] [id number]. Aung Mohamud Urea nitrogen [Mass/Vol] 13.0 mg/dL Normal 7.0-18.0 [facility] Comment on above: Performed By: #### L IPID, T7, CMP, TSH ####[facility] [address] [id number]. Aung Mohamud Urea nitrogen/Creatinine [Mass ratio] 18.3 mg/mg Normal [facility] Comment on above: Performed By: #### L IPID, T7, CMP, TSH ####[facility] [address] [address]Dr. Aung Mohamud TSHon 07-22-2022 TSH 0.706 uIU/mL Normal 0.358-3.740 [facility] Comment on above: Performed By: #### L IPID, T7, CMP, TSH ####[facility] [address] [address]Dr. Aung Mohamud VITAMIN D 25 OHon 07-22-2022 VIT D 25-OH 10.2 ng/mL Normal [facility] Comment on above: Performed By: #### V JOSIE, IRON #### [facility] [address] [address] [address] Aung Mohamud VIT D RANGES SEE BELOW Normal [facility] Comment on above: Result Comment: <20 ng/mL Vit D deficient 20 - <30 ng/mL Vit D insufficient 30 - 100 ng/mL Vit D sufficient >100 ng/mL Potential Toxicity Performed By: #### V ITAD, IRON #### [facility] [address] [address] [address] Aung Mohamud NOVEL CORONAVIRUS NASOPHARYN GEAL - [facility] SPECIMEN ONLYon 09-16-2020 SARS-CoV-2 (COVID-19) RNA JOSE ROBERTO+probe Ql (Unsp spec) Not detected Normal NOT DETECTED [facility] Comment on above: Order Comment: Viral transport media - Collection must be done while wearing N-95 mask, eye protection, gown and gloves. Please label ALL specimens as 2019-nCoV rule out and deliver by hand. This test was performed using [employer] and has been approved as Emergency Use Authorization (EUA) for the qualitative detection of SARS-CoV-2 nucleic acid. Result Comment: [facility] Negative results do not [...] or clinically deteriorating. Performed By: #### L [id number] #### [facility] (DEFAULT) [address] [place] [address] Outside Colonoscopyon 2020 Outside Colonoscopy [id number] C#1.00CD:127 [facility] Lab Reportson 06-24-2020 Lab Reports [id number]#1.00CD:127 [facility] Provider Letter FTMCon 06-21 Provider Letter [facility] [place] Carvajal, [address] [facility] [place] [address] Re: MELISSA ANGEL Date of : 1955 Thank you for your referral of Melissa Angel who was seen on consultation on 2020, for positive occult stool. A colonoscopy is planned for further evaluation. I have enclosed my consultation notes for your review. I will be happy to follow Melissa should her symptoms persist. Sincerely, Hernán Raymundo MD General Surgery [facility] Consent for Procedure/Surger yon 06-19-2020 Consent for Procedure/Surgery [id number]#1.00CD:127 [facility] Facesheeton 06-19-2020 Facesheet [id number]#1.00CD:127 Normal [facility] Ambulatory Clinical Summaryo n 06-18-2020 Ambulatory Clinical Summary {[id number]}CD:[id number] Normal [facility] General Surgery Office/Clini c Noteon 06-18-2020 [...] 06/18/2020 Family History Hypertension: Mother and Father. [facility] Comment on above: Result Comment: Elec tronically Signed By: DENIZ STRATTON, Hernán Buchanan\Date and Time Signed: 06/18/20 15:05 EST Physician Referralon 021 Physician Referral [id number]#1.00CD:127 [facility] Encounters Encounter Date Encounter Type Care Provider Facility Start: 05-04-2024 End: 05-04-2024 [facility] Start: 05-04-2024 End: 05-04-2024 Subsequent [facility] Comment on above: Arrived Start: 05-01-2024 End: 05-01-[address] 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 [facility] Start: 04-24-2024 End: 04-24-2024 Subsequent hospital visit by physician Wendy Saha PTA [facility] Comment on above: Arrived Start: 04-22-2024 ambulatory [facility] Start: 04-20-2024 End: 04-20-2024 [facility] Start: 04-20-2024 End: 04-20-2024 Subsequent hospital visit by physician Maricel Horan PTA [facility] Physical Therapy Comment on above: Arrived Start: 04-18-2024 End: 04-18-2024 ambulatory [facility] Start: 04-18-2024 End: 04-18-2024 Subsequent hospital visit by physician Paula Mccarty PTA [facility] Physical Therapy Comment on above: Arrived Start: 04-17-2024 ambulatory [facility] Start: 04-11-2024 End: 04-11-[address] [facility] Start: 04-11-2024 End: 04-11-2024 Subsequent hospital visit by physician Paula Mccarty PTA [facility] Physical Therapy Comment on above: Arrived Start: 04-10-2024 End: 04-10-2024 ambulatory [facility] Start: 04-10-2024 End: 04-10-2024 Subsequent hospital visit by physician Levi Armas PT [facility] Physical Therapy Comment on above: Arrived Start: 04-06-2024 End: 04-06-2024 ambulatory [facility] Start: 04-06-2024 End: 04-06-2024 Subsequent hospital visit by physician Henny Kohler PTA [facility] Physical Therapy Comment on above: Arrived Start: 04-03-2024 End: 04-03-2024 ambulatory [facility] Start: 04-03-2024 End: 04-03-2024 Subsequent hospital visit by physician Levi Armas PT [facility] Physical Therapy Comment on above: Arrived Start: 03-30-2024 End: 03-30-[address] [facility] Start: 03-30-2024 End: 03-30-2024 Subsequent hospital visit by physician Henny Kohler [employer] [facility] Physical Therapy Comment on above: Arrived Start: 03-28-2024 End: 03-28-[address] [facility] Start: 03-28-2024 End: 03-28-2024 Subsequent hospital visit by physician Paula Mccarty [employer] [facility] Physical Therapy Comment on above: Arrived Start: 03-24-2024 End: 03-24-[address] [facility] [facility] Start: 03-24-2024 End: 03-24-2024 Subsequent hospital visit by physician Bean Koenig PANTOGRAPH I ENGRAVER [facility] Physical Therapy Comment on above: Arrived Start: 03-22-2024 ambulatory [facility] Start: 03-06-2024 End: 03-06-[address] [facility] Start: 03-06-2024 End: 03-06-2024 Subsequent hospital visit by physician Maricel Horan PANTOGRAPH I ENGRAVER [facility] Physical Therapy Comment on above: Arrived Start: 03-02-2024 End: 03-02-[address] [facility] Start: 02-29-2024 End: 02-29-2024 ambulatory [facility] Start: 02-29-2024 End: 02-29-2024 Subsequent hospital visit by physician Levi Armas PT [facility] Physical Therapy Comment on above: Arrived Start: 08-31-2023 ambulatory [facility] Ambulatory [facility] Start: 08-31-2023 End: 08-31-2023 ambulatory [facility] Start: 04-28-2023 End: 04-28-2023 ambulatory ANETTE RAJPUT Not Available Start: 10-01-[address] DOCTOR CORLEY Facility :H1 Start: 08-11-2022 End: 08-12-[address] RACHEL CARVAJAL . Facility:[facility]1 Start: 07-23-2022 End: 07-24-[address] RACHEL ACRVAJAL . Facility:[facility]1 Start: 07-22-2022 End: 07-23-[address] RACHEL CARVAJAL . 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 Phone: Plan of Treatment Date Care Activity Detail Author Start: 02-10-2033 DTaP,Tdap and Td Vac cines (2 - Td or Tdap) DTaP,Tdap and Td Vaccines (2 - Td or Tdap) [facility] Start: 02-10-2033 DTaP/Tdap/Td vaccine (2 - Td or Tdap) DTaP/Tdap/Td vaccine (2 - Td or Tdap) [facility] Start: 01-16-2032 Respiratory Syncytia l Virus (RSV) or age 60 yrs+ (1 - 1-dose 75+ series) Respiratory Syncytial Virus (RSV) or age 60 yrs+ (1 - 1-dose 75+ series) [facility] Start: 04-26-2025 Adult BMI Screening Adult BMI Screen ing [facility] Start: 04-26-2025 Tobacco Screening Tobacco Screening [facility] Start: 11-10-2024 End: 11-10-2024 Patient encounter procedure 11/10/2024 1:30 PM EDT Appointment [facility] - Radiation Oncology [address] [phone] [facility] Start: 05-04-2024 End: 05-04-2024 Patient encounter procedure 05/04/2024 2:15 PM EST [facility] [address] [place] [phone] Levi Armas, PT [facility] Physical Therapy Comment on above: [facility] Start: 05-01-2024 End: 05-01-2024 Patient encounter procedure 05/01/2024 3:00 PM EST Appointment [facility] [address] [place] [phone] Maricel Horan PTA [facility] Start: 04-27-2024 End: 04-27-2024 Patient encounter procedure 04/27/2024 2:15 PM EST Appointment [facility] [address] [place], [place] [phone] Maricel Horan P[facility] Start: 04-24-2024 End: 04-24-2024 Patient encounter procedure [facility] Start: 04-20-2024 End: 04-20-2024 Patient encounter procedure 04/20/2024 2:15 PM EST Appointment [facility] [address] [place] [phone] Maricel Horan [facility] Start: 04-18-2024 End: 04-18-2024 Patient encounter procedure 04/18/2024 12:00 PM EST Appointment [facility] [address] [place], [place] [phone] Paula Mccarty PTA [facility] Start: 04-17-2024 End: 04-17-2024 Patient encounter procedure 04/17/2024 1:45 PM EST Appointment [facility] [address] [place] [phone] Paula Mccarty PTA [facility] Start: 04-11-2024 End: 04-11-2024 Patient encounter procedure 04/11/2024 12:00 PM EST Appointment [facility] [address] [place] [phone] Paula Mccarty PTA [facility] Start: 04-10-2024 End: 04-10-2024 Patient encounter procedure 04/10/2024 12:15 PM EST Appointment [facility] [address] [place] [phone] Levi [facility] Comment on above: [facility] Start: 04-06-2024 End: 04-06-2024 Patient encounter procedure 04/06/2024 12:30 PM EST Appointment [facility] [address] [place] [phone] Henny Kohler P[facility] Start: 04-03-2024 End: 04-03-2024 Patient encounter procedure [facility] Start: 03-30-2024 End: 03-30-2024 Patient encounter procedure [facility] Start: 03-28-2024 End: 03-28-2024 Patient encounter procedure 03/28/2024 2:45 PM EST [facility]ointment [facility] [address] [place], [place] [phone] Paula Mccarty PTA [facility] Start: 03-27-2024 End: 03-27-2024 Patient encounter procedure 03/27/2024 12:45 PM EST [facility] [address] [place], [place] [phone] Maricel Horan PTA [facility] Start: 03-24-2024 End: 03-24-2024 Patient encounter procedure 03/24/2024 1:15 PM EST Appointment [facility] [address] [place] [phone] Henny Kohler PTA [facility] Start: 03-22-2024 End: 03-22-2024 Patient encounter procedure 03/22/2024 1:45 PM EST Appointment [facility] [address] [place] [phone] Maricel Horan PTA [facility] Start: 03-06-2024 End: 03-06-2024 Patient encounter procedure 03/06/2024 12:00 PM EDT Appointment [facility] [address] [place] [phone] Maricel Horan PTA [facility] Start: 03-02-2024 End: 03-02-2024 Patient encounter procedure 03/02/2024 3:45 PM EDT Appointment [facility] [address] [place] [phone] Maricel Horan PTA [facility] Start: 03-02-2024 Annual Wellness Visi t (Medicare) Annual Wellness Visit (Medicare) [facility] Start: 01-16-2024 COVID-19 Vaccine ( season) COVID-19 Vaccine () [facility] Start: 01-16-2024 Influenza vaccination Influenza Vacc ine [facility] Start: 12-16-2023 Influenza vaccination Flu vaccine (# 1) [facility] Start: 2022 Fall Risk Screening Fall Risk Screen ing [facility] Start: 2017 Respiratory Syncytia l Virus (RSV) or age 60 yrs+ (1 - 1-dose 60+ series) Respiratory Syncytial Virus (RSV) or age 60 yrs+ (1 - 1-dose 60+ series) [facility] Start: 01-16-2012 Screening for osteoporosis DEXA (modify frequency per FRAX score) [facility] Start: 2007 Shingles vaccine (1 of 2) Gates gles vaccine (1 of 2) [facility] Start: 2002 Screening for malign ant neoplasm of colon [facility] Start: 1997 Lipid panel Lipids [facility] Start: 1997 Screening for malign ant neoplasm of breast Breast cancer screen [facility] Start: 01-16-1976 Administration of varicella zoster vaccine Zoster (Shingles) Vaccine (1 of 2) [facility] Start: 1975 Hepatitis C screening Hepatitis C sc reen [facility] Start: 1969 Depression Screen Depression Screen [facility] Start: 1969 Depression Screening Depression Scre ening [facility] Start: 1963 Pneumococcal 65+ yea rs Vaccine (1 of 2 - PCV) Pneumococcal 65+ years Vaccine (1 of 2 - PCV) [facility] Start: 1957 Tobacco Counseling Tobacco Counselin deric [facility] Payers Date Payer Category Payer Managed Care Other (unspecified) [facility] [id number] 2022 Unknown [id number]. [id number] 2021 Medicare MEDICARE [id number] 2019 Unknown [id number] 1.2.840.644177.1.13.239. 2.7.3.160961.315 1959 Medicare [id number] 1959 Self-pay 1959 Unknown [id number] 1957 Unknown [id number] 2.16.840.1.475272.3.579. 2.593 1957 Unknown [id number] .16840.1.669433.3.579. 2.593 1957 Unknown [id number] 2.16.840.1.108906.3.579. 2.593 1957 Unknown [id number] 2.16.840.1.193442.3.579. 2.593 1957 Unknown [id number] 2.16.840.1.253166.3.579. 2.593 1957 Unknown [id number] 2.16.840.1.675504.3.579. 2.593 1957 Unknown [id number] 2.16.840.1.732533.3.579. 2.1259 1957 Unknown [id number] 2.16.840.1.312839.3.579. 2.1285 1957 Unknown [id number] 2.16.840.1.061000.3.579. 2.1285 1957 Unknown [id number] 2.16.840.1.425497.3.579. 2.1285 1957 Unknown [id number] 2.16.840.1.437772.3.579. 2.1285 1957 Unknown [id number] 2.16.840.1.124383.3.579. 2.1285 1957 Unknown [id number] 2.16.840.1.485584.3.579. 2.1285 1957 Unknown [id number] 2.16.840.1.015725.3.579. 2. 1957 Unknown [id number] 2.16.840.1.832660.3.579. 2. 1957 Unknown [id number] 2.16.840.1.940967.3.579. 2. 1957 Unknown [id number] 2.16.840.1.505782.3.579. 2.173 1957 Unknown [id number] 2.16.840.1.557450.3.579. 2.173 1957 Unknown [id number] 2.16.840.1.344440.3.579. 2.173 1957 Unknown [id number] 2.16.840.1.318758.3.579. 2. 1957 Unknown [id number] 2.16.840.1.221422.3.579. 2.173 1957 Unknown [id number] 2.16.840.1.859069.3.579. 2.173 1957 Unknown [id number] 2.16.840.1.789261.3.579. 2.173 1957 Unknown [id number] 2.16.840.1.033265.3.579. 2.173 1957 Unknown [id number] 2.16.840.1.918459.3.579. 2.173 1957 Unknown [id number] 2.16.840.1.963913.3.579. 2.173 1957 Unknown [id number] 2.16.840.1.592472.3.579. 2.173 1957 Unknown [id number] 2.16.840.1.154238.3.579. 2.173 1957 Unknown [id number] 2.16.840.1.847168.3.579. 2.173 1957 Unknown [id number] 2.16.840.1.301733.3.579. 2.173 1957 Unknown [id number] 2.16.840.1.445996.3.579. 2.173 Social History Date Type Detail Facility Start: 09-15-2020 End: 04-26-2024 Tobacco smoking status INIS Smokes tobacco daily [facility] History of tobacco use Cigarette Smoker [facility] Start: 09-15-2020 End: 04-26-2024 Tobacco use and exposure Smokeless tobacco non-user [facility] Start: 09-15-2020 Alcoholic beverage intake Curr ent non-drinker of alcohol (finding) [facility] Start: 09-04-2020 End: 09-15-2020 History of Social function [facility] Start: 09-04-2020 End: 09-15-2020 Tobacco use panel [facility] Start: 1955 Sex assigned at Not on file [facility] Start: 04-26-2024 Alcoholic beverage intake Ex-drinker (finding) [facility] Do you belong to any clubs or organizations such as taoist groups, unions, fraternal or athletic groups, or school groups? No [facility] Are you now , , , , never or living with a partner? [facility] How often to you hav e a drink containing alcohol? Never [facility] Average Number of Drinks Not on file [facility] Do you feel stress - tense, restless, nervous, or anxious, or unable to sleep at night because your mind is troubled all the time - these days [OSQ] Only a little [facility] Start: 09-04-2020 Education 12 [facility] Start: 08-28-2020 Sex Female (finding) [facility] Clinical Notes 03-06-2024 to 04-27-2024 Maricel Horan PTA - 04/27/2024 2:15 PM ESTTelephone Encounter - Lidia Beckett - 04/26/2024 2:01 PM ESTTelephone Encounter - SARINA Ritter - 04/26/2024 2:01 PM EST Note Date & Type Note Facility 04-27-2024 History of Presen t illness Narrative [facility] Outpatient Physical Therapy Daily Note Patient: Melissa Angel : 1955 CSN #: [id number] Referring Physician: Shaq Chaevz MD Date: 04/27/2024 Diagnosis: R rotator cuff [...] interventions and modalities to decrease pain -MET Group Home Goals Time Frame for Group Home Goals : 5 weeks Group Home Goal 1: Patient will be independent and compliant with a HEP -MET Group Home Goal 2: Patient will improve R shoulder ROM to match L for ADLs. -progressing Press Tender Incendiary Grenade Goal 3: Patient will improve R shoulder strength to >/= 4/5 in all major joints and planes. -progressing Group Home Goal 4: Patient will report 70% improvement in overall symptoms and function. -MET Minutes Tracking: Time In: 1415 Time Out: 1505 Minutes: 50 Timed Code Treatment Minutes: 48 Minutes Maricel Horan PTA Date: 04/27/2024 documented in this encounter [facility] 04-26-2024 Miscellaneous Notes Formattin g of this note might be different from the original. Dr. Sotelo's office (endocrine) called and you made a referral to them for patient and they are not accepting new patients at this time. I called and spoke to Melissa. Will redirect the referral to Dr. Otoniel Herring in [place] as this is closer to her house. Will refax order to his office documented in this encounter [facility] 04-26-[address] er Note Dr. Sotelo's office (endocrine) called and you made a referral to them for patient and they are not accepting new patients at this time. [facility] 04-26-2024 Telephone encount er Note I called and spoke to Melissa. Will redirect the referral to Dr. Otoniel Herring in [place] as this is closer to her house. Will refax order to his office [facility] Work Phone: 04-20-2024 History of Presen t illness Narrative [facility]patient Physical Therapy Daily Note Patient: Melissa Angel : 1955 CSN #: [id number] Referring Physician: Shaq Chavez MD Date: 04/20/2024 [...] interventions and modalities to decrease pain -MET Press Tender Incendiary Grenade Goals Time Frame for Press Tender Incendiary Grenade Goals : 5 weeks Press Tender [employer] Grenade Goal 1: Patient will be independent and compliant with a HEP -MET Press Tender Incendiary Grenade Goal 2: Patient will improve R shoulder ROM to match L for ADLs. -progressing Press Tender Incendiary Grenade Goal 3: Patient will improve R shoulder strength to >/= 4/5 in all major joints and planes. -progressing Press Tender Incendiary Grenade Goal 4: Patient will report 70% improvement in overall symptoms and function. -progressing Minutes Tracking: Time In: 1413 Time Out: 1508 Minutes: 55 Timed Code Treatment Minutes: 54 Minutes Maricel Horan PTA Date: 04/20/2024 documented in this encounter [facility] 04-11-2024 History of Presen t illness Narrative [facility] Physical Therapy Daily Note Patient: Melissa Angel : 1955 [facility] #: [id number] Referring Physician: Shaq Chavez MD Date: 04/11/2024 [...] interventions and modalities to decrease pain -MET Group Home Goals Time Frame for Press Tender Incendiary Grenade Goals : 5 weeks Group Home Goal 1: Patient will be independent and compliant with a HEP -MET Press Tender Incendiary Grenade Goal 2: Patient will improve R shoulder ROM to match L for ADLs. -progressing Press Tender Incendiary Grenade Goal 3: Patient will improve R shoulder strength to >/= 4/5 in all major joints and planes. -progressing Press Tender Incendiary Grenade Goal 4: Patient will report 70% improvement in overall symptoms and function. -progressing Minutes Tracking: Time In: 1201 Time Out: 1255 Minutes: 54 Paula Mccarty, PANTOGRAPH I ENGRAVER Date: 04/11/2024 documented in this encounter [facility] 04-10-2024 History of Presen t illness Narrative [facility] Outpatient Physical Therapy Daily Note Patient: Melissa Angel : 1955 CSN #: [id number] Referring Physician: Shaq Chavez MD Date: 04/10/2024 [...] interventions and modalities to decrease pain -MET Press Tender Incendiary Grenade Goals Time Frame for Group Home Goals : 5 weeks Press Tender Incendiary Grenade Goal 1: Patient will be independent and compliant with a HEP -MET Press Tender Incendiary Grenade Goal 2: Patient will improve R shoulder ROM to match L for ADLs. -progressing Press Tender Incendiary Grenade Goal 3: Patient will improve R shoulder strength to >/= 4/5 in all major joints and planes. -progressing Press Tender Incendiary Grenade Goal 4: Patient will report 70% improvement in overall symptoms and function. -progressing Minutes Tracking: Time In: 1215 Time Out: 1305 Minutes: 50 Timed Code Treatment Minutes: 48 Minutes Levi Armas PT, DPT, OCS, Cert. DN Date: 04/10/2024 documented in this encounter [facility] 04-06-2024 History of Presen t illness Narrative [facility]patient Physical Therapy Daily Note Patient: Melissa Angel : 1955 CSN #: [id number] Referring Physician: Shaq Chavez MD Date: 04/06/2024 [...] interventions and modalities to decrease pain -MET Group Home Goals Time Frame for Press Tender Incendiary Grenade Goals : 5 weeks Group Home Goal 1: Patient will be independent and compliant with a HEP -MET Press Tender Incendiary Grenade Goal 2: Patient will improve R shoulder ROM to match L for ADLs. -progressing Group Home Goal 3: Patient will improve R shoulder strength to >/= 4/5 in all major joints and planes. -progressing Group Home Goal 4: Patient will report 70% improvement in overall symptoms and function. 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 Activity Tolerance Activity Tolerance: Patient tolerated [...] interventions and modalities to decrease pain -MET Group Home Goals Time Frame for Group Home Goals : 5 weeks Group Home Goal 1: Patient will be independent and compliant with a HEP -MET Group Home Goal 2: Patient will improve R shoulder ROM to match L for ADLs. -progressing Press Tender Incendiary Grenade Goal 3: Patient will improve R shoulder strength to >/= 4/5 in all major joints and planes. -progressing Group Home Goal 4: Patient will report 70% improvement in overall symptoms and function. -progressing Minutes Tracking: Time In: 1245 Time Out: 1335 Minutes: 50 Timed Code Treatment Minutes: 48 Minutes Levi Armas PT, DPT, OCS, Cert. DN Date: 04/03/2024 documented in this encounter [facility] 03-30-2024 History of Presen t illness Narrative [facility] Outpatient Physical Therapy Daily Note Patient: Melissa Angel : 1955 CSN #: [id number] Referring Physician: Shaq Chavez MD Date: 03/30/2024 [...] interventions and modalities to decrease pain -MET Group Home Goals Time Frame for Press Tender Incendiary Grenade Goals : 5 weeks Group Home Goal 1: Patient will be independent and compliant with a HEP -MET Press Tender Incendiary Grenade Goal 2: Patient will improve R shoulder ROM to match L for ADLs. -progressing Group Home Goal 3: Patient will improve R shoulder strength to >/= 4/5 in all major joints and planes. -progressing Group Home Goal 4: Patient will report 70% improvement in overall symptoms and function. -progressing Minutes Tracking: Time In: 1400 Time Out: 1500 Minutes: 60 Timed Code Treatment Minutes: 57 Minutes Henny Kohler, PANTOGRAPH I ENGRAVER Date: 03/30/2024 documented in this encounter [facility] 03-24-2024 History of Presen t illness Narrative [facility] Outpatient Physical Therapy Daily Note Patient: Melissa Angel : 1955 CSN #: [id number] Referring Physician: Shaq Chavez MD Date: 03/24/2024 Treatment Diagnosis: Subacromial bursitis, shoulder impingement Onset Date: 02/28/22 PT Insurance Information: Jessenia Goyal Total # of Visits Approved: 10 Per Physician Order Total # of Visits to Date: 4 No Show: 0 Canceled Appointment: 0 04/14/24 Plan of Care/Recert Due Pre-Treatment Pain: 08/24 Subjective: Pt reports she was gone for a bit traveling to [place] to see her parents. Pt rates current [...] interventions and modalities to decrease pain -MET Group Home Goals Time Frame for Group Home Goals : 5 weeks Group Home Goal 1: Patient will be independent and compliant with a HEP -MET Press Tender Incendiary Grenade Goal 2: Patient will improve R shoulder ROM to match L for ADLs. -progressing Group Home Goal 3: Patient will improve R shoulder strength to >/= 4/5 in all major joints and planes. -progressing Press Tender Incendiary Grenade Goal 4: Patient will report 70% improvement in overall symptoms and function. -progressing Minutes Tracking: Time In: 830 Time Out: 928 Minutes: 58 Timed Code Treatment Minutes: 55 Minutes Bean Koenig PTA Date: 03/24/2024 documented in this encounter [facility] 03-06-2024 History of Presen t illness Narrative [facility] Outpatient Physical Therapy Daily Note Patient: Melissa Angel : 1955 CSN #: [id number] Referring Physician: Shaq Chavez MD Date: 03/06/2024 [...] weeks as she will be in [place]. Exercises: Exercise 1: HEP: Therapy ball circles, [...] interventions and modalities to decrease pain -MET Press Tender Incendiary Grenade Goals Time Frame for Group Home Goals : 5 weeks Press Tender Incendiary Grenade Goal 1: Patient will be independent and compliant with a HEP -MET Press Tender Incendiary Grenade Goal 2: Patient will improve R shoulder ROM to match L for ADLs. -progressing Press Tender Incendiary Grenade Goal 3: Patient will improve R shoulder strength to >/= 4/5 in all major joints and planes. -progressing Press Tender Incendiary Grenade Goal 4: Patient will report 70% improvement in overall symptoms and function. -progressing Minutes Tracking: Time In: 1200 Time Out: 1255 Minutes: 55 Timed Code Treatment Minutes: 54 Minutes Maricel Horan PTA Date: 03/06/2024 documented in this encounter [facility] Evaluation note Diagnosis Papillary thyroid carcinoma (CMS-HCC)- Primary documented in this encounter [facility] [employer] SystemInstructionsNot on filedocumented in this encounter [facility] [employer] [facility] Summary Purpose Family History No Family History Records FoundNo Family History Records FoundNo Family History Records FoundNo Family History Records FoundNo Family History Records FoundNo Family History Records FoundNo Family History Records Found Advance Directives Date Activated Date Inactivated Comments 09/15/2020 5:39 PM 09/16/2020 2:34 PM Additional Source Comments INFORMATION SOURCE (unrecogn ized section and content) DATE CREATED AUTHOR 07/13/2020 [facility] DATE CREATED AUTHOR AUTHOR'S ORGANIZ ATION 09/17/2020 [facility] DATE CREATED AUTHOR AUTHOR'S ORGANIZ ATION 09/28/2022 [facility] DATE CREATED AUTHOR AUTHOR'S ORGANIZ ATION 04/30/2023 [facility] EPIC DATE CREATED AUTHOR AUTHOR'S ORGANIZ ATION 04/26/2024 [facility] DATE CREATED AUTHOR AUTHOR'S ORGANIZ ATION 04/29/2024 [facility] DATE CREATED AUTHOR AUTHOR'S ORGANIZ ATION 05/08/2024 [facility] Care Teams (unrecognized sec tion and content) Credit Assistant Relationship Specialty Start Date End Date Rachel Carvajal MD [address] [place] [address] PCP - General Family Medicine 09/15/20 Credit Assistant Relationship Specialty Start Date End Date Rachel Carvajal MD [address] [phone] PCP - General Family Medicine 09/15/20 Credit Assistant Relationship Specialty Start Date End Date Rachel aCrvajal MD [address] [phone] PCP - General Family Medicine 09/15/20 Credit Assistant Relationship Specialty Start Date End Date Rachel Carvajal MD [address] [phone] PCP - General Family Medicine 09/15/20 Credit Assistant Relationship Specialty [place] [address] [place] [address] PCP - General Family Medicine 09/15/20 Credit Assistant Relationship Specialty Start [place] [address] [place], [place] [id number] PCP - General Family Medicine 09/15/20 Credit Assistant Relationship Specialty Start Date End Date Rachel Carvajal MD [address] [id number] PCP - General Family Medicine 09/15/20 Credit Assistant Relationship Specialty Start Date End Date Rachel Carvajal MD [address] [id number] PCP - General Family Medicine 09/15/20 Credit Assistant Relationship Specialty Start Date End Date Rachel Carvajal MD [address] [id number] PCP - General Family Medicine 09/15/20 Credit Assistant Relationship Specialty Start Date End Date Rachel Carvajal MD [address] [place] [id number] PCP - General Family Medicine 09/15/20 Credit Assistant Relationship Specialty Start Date End Date Rachel Carvajal MD PCP - General Family Medicine 08/28/20 Credit Assistant Relationship Specialty Start Date End Date Rachel Carvajal MD PCP - General Family [facility] 08/28/20 FOR RECORDS PERTAINING TO PATIENTS WHO [...] BE BASED ON THE PRIMARY CLINICAL RECORDS. [facility]. provides no warranty or guarantee of the accuracy or completeness of information in this document.
== END 2024-09-25 12:54 | disposition home or self-care (01) ==
LOC: MAMMO 12:54
PROVIDERS: PCP Family Medicine; Visit Provider Family Medicine
DX: M81.0 Age-related osteoporosis without current pathological fracture (principal); F17.210 Nicotine dependence, cigarettes, uncomplicated; Z12.31 Encounter for screening mammogram for malignant neoplasm of breast; Z80.3 Family history of malignant neoplasm of breast; Z80.0 Family history of malignant neoplasm of digestive organs; Z80.8 Family history of malignant neoplasm of other organs or systems; C73 Malignant neoplasm of thyroid gland; Z92.3 Personal history of irradiation
CPT/HCPCS: 71271; 76536; 77063; 77067; 77080

== ENCOUNTER 2024-09-25 12:57 | Outpatient (OUT) | payer MEDICARE, OTHER, SELFPAY ==
[2024-09-25 15:20] LABS: Free T4 1.91 ng/dL (0.76-1.46)
[2024-09-25 15:41] LABS: Thyroid Stimulating Hormone 0.207 uIU/mL (0.358-3.740)
[2024-09-26 17:09] LABS: Thyroglobulin Antibody <1.0 IU/mL (0.0-0.9)
== END 2024-09-25 12:58 | disposition home or self-care (01) ==
LOC: LAB 12:59
PROVIDERS: PCP Family Medicine
DX: C73 Malignant neoplasm of thyroid gland (principal); Z92.3 Personal history of irradiation
CPT/HCPCS: 36415; 84432; 84439; 84443; 86800

== ENCOUNTER 2025-01-31 08:01 | Outpatient (OUT) | payer MEDICARE, OTHER, SELFPAY ==
--- NOTE | 2025-01-31 08:06 | US_ITS ---
The [address] [address] Patient Name: ANGEL ANGEL MRN: [id number] date: 1955 Sex: F Assigned Patient Location: US Current Patient Location: US Accession/Order Number: [id number] Exam Date: 01/31/2025 08:07 Report Date: 01/31/2025 09:38 At the request of: RACHEL UFENTES MD Procedure: US soft tissue head and neck LIMITED NECK ULTRASOUND CLINICAL DATA: History of thyroidectomy due to carcinoma. COMPARISON: 09/25/2024 Real-time ultrasound evaluation of the anterior lower neck was performed. The thyroid gland is surgically absent. No residual thyroid tissue, nodularity or abnormal lymph nodes are seen. Once again, the right internal jugular vein is asymmetrically larger than the left. US/US soft tissue head and neck IMPRESSION: NO EVIDENCE OF TUMOR RECURRENCE OR LOCAL METASTATIC DISEASE. Impression dictated by: Argentina Ludwig M.D. 01/31/2025 9:38 AM Dictation Location: [place] [address] Electronically authenticated by: [id number] Y Date: 01/31/2025 09:38
--- OUTSIDE RECORDS SUMMARY | 2025-01-31 08:06 | XMS_ITS | CCD ---
Author Organization [facility] Care Team Providers Care [employer] Maker Name Role Phone ALFREDO ., DR RAMOS Admitting Unavailable HOY ., DR RAMOS Primary Care Unavailable HOY ., DR RAMOS Consulting Unavailable HOY ., DR RAMOS Attending Unavailable ZIEBER, DR SHAQ Butts Consulting Unavailable HOY ., DR RAMOS Admitting Unavailable HOY ., DR RAMOS Primary Care Unavailable HOY ., DR RAMOS Consulting Unavailable HOY ., DR RAMOS Attending Unavailable ZIEBER, DR HSAQ Butts Consulting Unavailable HOY ., DR RAMOS [...] Unavailable ZIEBER, DR SHAQ Butts Consulting [facility]available [facility] Attending Unavailable Rachel Carvajal MD Primary Care Provider [phone] SHAQ CHAVEZ Referring Unavailable HOY, RACHEL M Primary Care Unavailable CHAVEZSHAQ Referring Unavailable HOY, RACHEL M Primary Care Unavailable SHAQ CHAVEZ Referring Unavailable HOY, RACHEL M Primary Care Unavailable SHAQ CHAVEZ Referring Unavailable HOY, RACHEL M Primary Care Unavailable SHAQ CHAVEZ Referring Unavailable HOY, RACHEL M Primary Care Unavailable HOY, RACHEL M Primary Care Unavailable SHAQ CHAVEZ Referring Unavailable SHAQ CHAVEZ Referring Unavailable HOY, RACHEL M Primary Care Unavailable SHAQ CHAVEZ Referring Unavailable HOY, RACHEL M Primary Care Unavailable CHAVEZSHAQ Referring Unavailable HOY, RACHEL M Primary Care Unavailable CHAVEZSHAQ Referring Unavailable HOY, RACHEL M Primary Care Unavailable CHAVEZ, SHAQ Hudson Referring Unavailable HOY, RACHEL M Primary Care Unavailable CHAVEZ, SHAQ Hudson Referring Unavailable HOY, RACHEL M Primary Care Unavailable CHAVEZ, SHAQ Hudson Referring Unavailable HOY, RACHEL M Primary Care Unavailable CHAVEZSHAQ Referring Unavailable HOY, RACHEL M Primary Care Unavailable CHAVEZ, SHAQ Hudson Referring Unavailable HOY, RACHEL M Primary Care Unavailable CHAVEZSHAQ Referring Unavailable HOY, RACHEL M Primary Care Unavailable CHAVEZ, SHAQ Hudson Referring Unavailable HOY, RACHEL M Primary Care Unavailable GURDON, SHAQ Hudson Referring Unavailable HOY, RACHEL M Primary Care Unavailable Rachel Carvajal MD Primary Care Provider [phone] HOY, RACHEL M Referring Unavailable HOY, RACHEL M Primary Care Unavailable HOY, RACHEL M Referring Unavailable HOY, RACHEL M Primary Care Unavailable HOY, RACHEL M Referring Unavailable HOY, RACHEL M Primary Care Unavailable HOY, RACHEL M Referring Unavailable HOY, RACHEL M Primary Care Unavailable Rachel Carvajal MD Primary Care Provider [phone] REENA HERRING Referring Unavailable HOY, RACHEL M Primary Care Unavailable Medications Current Medications Medication Drug Class(es) Dates Sig (Normalized) Sig (Original) alendronic acid 70 mg oral tablet (3 sources) Bisphosphonate Start: 08-12-2022 alendronate (FOSAMAX) 70 mg tablet 1 tablet (70 mg total) once a week. 08/12/2022 Active alendronate (FOS AMAX) 70 MG tablet Take 1 tablet by mouth every 7 days Active cetirizine hydrochloride 10 mg oral tablet (3 sources) Histamine-1 Receptor Antagonist take 1 tablet by mouth once daily cetirizine (ZYRTEC) 10 MG tablet Take 1 tablet by mouth daily Active cetirizine (ZyrT EC) 10 mg tablet Take by mouth 2 [...] Active levothyroxine sodium 0.088 mg oral tablet (3 sources) l-Thyroxine Start: 12-01-19 take 1 tablet by mouth once daily levothyroxine (SYNTHROID) 88 MCG tablet Indications: Papillary thyroid carcinoma (HCC) , Acquired hypothyroidism Take 1 tablet by mouth Daily 90 tablet 11/30/2024 Active Start: 07-04-2021 levothyroxine (SYNTHROID, LEVOTHROID) 88 MCG [...] of thyroid gland] Onset: 09-03-2020 09-15-2020 Chronic Cancer of thyroid (5 sources) Personal history of malignant neoplasm of thyroid; Translations: [PERSONAL HX MALIG NEOPLASM THYROID] Onset: 08-11-2022 Episodic Chronic obstructive pulmonary disease and bronchiectasis (4 [...] D DEFICIENCY UNSPECIFIED] Onset: 07-25-2022 Chronic Osteoporosis (2 sources) Age-related osteoporosis without current pathological fracture; Translations: [Osteoporosis] Onset: 08-12-2022 09-05-2024 Chronic Other aftercare (5 sources) Encounter for follow-up examination after completed treatment for malignant neoplasm; Translations: [ENC F/U EX AFTR CMPL TX MALIG NEOPL] Onset: 08-11-2022 Episodic Other connective tissue disease (2 sources) Other [...] caused by cigarettes] Onset: 07-30-2020 09-15-2020 Chronic Thyroid disorders (1 source) Acquired hypothyroidism; Translations: [Hypothyroidism, unspecified] Onset: 09-05-2024 09-05-2024 Chronic Past or Other Problems Problem Classification Problem Date Documented Da te Episodic/Chronic Acute and unspecified renal failure (16 sources) Acute renal failure syndrome; Translations: [Acute kidney failure, unspecified] Onset: 09-15-2020 09-15-2020 Episodic Fluid and electrolyte disorders (17 sources) Dehydration; Translations: [Hyperkalemia] Onset: 09-15-2020 09-15-2020 Episodic Mood disorders (2 sources) Mood disorders Onset: 09-04-2020 09-04-2020 Other aftercare (2 sources) History of malignant neoplasm of thyroid; Translations: [Encounter for follow-up examination after completed treatment for malignant neoplasm] Onset: 11-14-2020 11-14-2020 Episodic Other liver diseases (16 sources) Alkaline phosphatase raised; Translations: [Abnormal levels of other serum enzymes] Onset: 09-15-2020 09-15-2020 Episodic Residual codes; unclassified (1 source) Pain, unspecified; Translations: [Pain, unspecified] Onset: 04-22-2024 Episodic Residual codes; unclassified (1 source) Personal history of irradiation; Translations: [Personal history of irradiation] Onset: 11-14-2020 Episodic Urinary tract infections (16 sources) Acute cystitis; Translations: [Acute cystitis without hematuria] Onset: 09-15-2020 09-15-2020 Episodic Results Test Name Value Interpretation Reference Range Facility [facility] Metabolic [facility] 01-25-2025 Albumin [Mass/Vol] 4.1 g/dL 3.5 - 5.0 g/dL [facility] ALP (Bld) [Catalytic activity/Vol] 86 U/L 38 - 126 U/L [facility] ALT [Catalytic activity/Vol] 18 U/L 0 - 35 U/L [facility] AST [Catalytic activity/Vol] 24 U/L 14 - 36 U/L [facility] Bilirubin [Mass/Vol] 0.6 mg/dL 0.2 - 1 .3 mg/dL [facility] Calcium [Mass/Vol] 9.6 mg/dL 8.4 - 10. 2 mg/dL [facility] Chloride [Moles/Vol] 103 mmol/L [facility] CO2 [Moles/Vol] 29 mmol/L [facility] Creatinine [Mass/Vol] 0.86 mg/dL 0.52 - 1.04 mg/dL [facility] Est, Glom Filt Rate 74 - PINF [facility] Comment on above: GFR calculated using CKD-EPI (2020) formula. Stage 1 Kidney damage (e.g., protein in the urine) with normal GFR >=90 Stage 2 Kidney damage with mild decrease in GFR 60-89 Stage 3a Moderate decrease in GFR 45-59 Stage 3b Moderate decrease in GFR 30-44 Stage 4 Severe reduction in GFR 15-29 Stage 5 Kidney failure <15 Glucose [Mass/Vol] 91 mg/dL 65 - 100 mg/dL [facility] Potassium [Moles/Vol] 4.4 mmol/L [facility] Protein [Mass/Vol] 7.4 g/dL 6.3 - 8.2 g/dL [facility] Sodium [Moles/Vol] 137 mmol/L [facility] Urea nitrogen (BldV) [Mass/Vol] 15 mg/dL 7 - 17 mg/dL [facility] Albumin [Mass/Vol] 4.1 g/dL Normal 3.5-5.0 [facility] Comment on above: Performed By: #### F T4, CMP, TSH #### [place] [address] Ph. [phone] ALP [Catalytic activity/Vol] 86 U/L Normal 38-126 [facility] Comment on above: Performed By: #### F T4, CMP, TSH #### [place] [address] Ph. [phone] ALT [Catalytic activity/Vol] 18 U/L Normal 0-35 [facility] Comment on above: Performed By: #### F T4, CMP, TSH #### [place] [address] Ph. [phone] AST [Catalytic activity/Vol] 24 U/L Normal 14-36 [facility] Comment on above: Performed By: #### F T4, CMP, TSH #### [place] [address] Ph. [phone] Bilirubin [Mass/Vol] 0.6 mg/dL Normal 0.2-1.3 [facility] Comment on above: Performed By: #### F T4, CMP, TSH #### [place] [address] Ph. [phone] Calcium [Mass/Vol] 9.6 mg/dL Normal 8.4-10.2 [facility] Comment on above: Performed By: #### F T4, CMP, TSH #### [place] [id number] Ph. [phone] Chloride [Moles/Vol] 103 mmol/L Normal 98-107 [facility] Comment on above: Performed By: #### F T4, CMP, TSH #### [place] [address] Ph. [phone] CO2 [Moles/Vol] 29 mmol/L Normal 22-32 [facility] Comment on above: Performed By: #### F T4, CMP, TSH #### [place] [address] Ph. [phone] Creatinine [Mass/Vol] 0.86 mg/dL Normal 0.52-1.04 [facility] Comment on above: Performed By: #### F T4, CMP, TSH #### [place] [address] Ph. [phone] GFR/1.73 sq M.predicted among non-blacks MDRD (S/P/Bld) [Vol rate/Area] 74 mL/min/{1.73_m2} Normal >60 [facility] Comment on above: Result Comment: GFR calculated using CKD-EPI (2020) formula.\X0D0A\Stage 1 Kidney damage (e.g., protein in the urine) with normal GFR >=90\X0D0A\Stage 2 Kidney damage with mild decrease in GFR 60-89\X0D0A\Stage 3a Moderate decrease in GFR 45-59\X0D0A\Stage 3b Moderate decrease in GFR 30-44\X0D0A\Stage 4 Severe reduction in GFR 15-29\X0D0A\Stage 5 Kidney failure <15 Performed By: #### F T4, CMP, TSH #### [place] [address] Ph. [phone] Glucose [Mass/Vol] 91 mg/dL Normal 65-100 [facility] Comment on above: Performed By: #### F T4, CMP, TSH #### [place] [address] Ph. [phone] Potassium [Moles/Vol] 4.4 mmol/L Normal 3.6-5.0 [facility] Comment on above: Performed By: #### F T4, CMP, TSH #### [place] [address] Ph. [phone] Protein [Mass/Vol] 7.4 g/dL Normal 6.3-8.2 [facility] Comment on above: Performed By: #### F T4, CMP, TSH #### [place] [address] Ph. [phone] Sodium [Moles/Vol] 137 mmol/L Normal 135-145 [facility] Comment on above: Performed By: #### F T4, CMP, TSH #### [place] [address] Ph. [phone] Urea nitrogen [Mass/Vol] 15 mg/dL Normal 7-17 [facility] Comment on above: Performed By: #### F T4, CMP, TSH #### [place] [address] Ph. [phone] Free T4on 01-25-2025 Free T4 [Mass/Vol] 1.99 ng/dL Normal 0.78-2.19 [facility] Comment on above: Performed By: #### F T4, CMP, TSH #### [place] [address] Ph. [phone] T4, Freeon 01-25-2025 Free T4 [Mass/Vol] 1.99 ng/dL 0.78 - 2. 19 ng/dL [facility] THYROGLOBULIN ANTIBODYon Thyroglobulin Antibodies <1 Normal <=1 [facility] Comment on above: Order Comment: [facility] performed at: [facility], [facility], [address] [place] [address], , Manager Of Program: Aris Liao MD PhD\X0D0A\[facility] Collection Date/Time: [id number]\X0D0A\[facility] Results Received Date/Time: \X0D0A\[facility] Reported Date/Time: Performed By: #### O [id number], [id number] #### [place] [id number] Ph. [phone] THYROGLOBULIN QUANT.on 01-25 Thyroglobulin, LC/MS/MS PENDING Normal [facility] Comment on above: Order Comment: [facility] Collection Date/Time: [id number] Performed By: #### O [id number], [id number] #### [place] [id number] Ph. [phone] TSHon 01-25-2025 TSH Qn 0.546 m[IU]/L [facility] TSH 0.546 mIU/mL Normal 0.470-4.680 [facility] Comment on above: Performed By: #### F T4, CMP, TSH #### [place] [address] Ph. [phone] THYROGLOBULIN AB AND THYROGL OBULINon 08-12-2022 Thyroglobulin Antibody <1.0 Normal 0.0-0.9 [facility] Comment on above: Result Comment: Thyr oglobulin Antibody measured by [facility] [place] Methodology Performed By: #### T HYGIMA #### [facility] [address] [place] [address] Dr. Aung Mohamud Thyroglobulin by CUONG 0.1 ng/mL Critically low 1.5-38.5 [facility] Comment on above: Result Comment: Acco [...] Sam Immunometric Assay Performed By: #### T [facility] #### [facility] [address] [place] [address] LUNG CANCER SCREENINGon [...] by: SHAQ OSORIO Date: 2022-08-11 14:16 Normal [facility] TSHon 08-11-2022 TSH 0.766 uIU/mL Normal 0.358-3.740 [facility] Comment on above: Performed By: #### T #### [facility] [address] [place] [address] Dr. Aung Mohamud XR DEXA BONE DENSITYon [...] by: SHAQ OSORIO Date: 2022-08-11 13:42 Normal [facility] INSULINon 07-23-2022 Insulin 7.2 uIU/mL Normal 2.6-24.9 [facility] Comment on above: Performed By: #### I NSULIN #### [facility] [address] [place] [address] Dr. Aung Mohamud MG MAMM SCREEN 3D GALINA CADon 07-23-2022 MG MAMM SCREEN 3D GALINA CAD Patient: MELISSA ANGEL I. Exam Date: 07/23/2022 : 1955 Gender:F Ordering : DR RACHEL CARVAJAL . Admission #: [id number] Family : Order #: [id number] CLICK HERE TO VIEW EXAM RADIOLOGY REPORT [...] colon cancer at age 64. LOCATION: [facility] BREAST COMPOSITION: Extremely dense, which lowers [...] M.D. on 07/24/2022 at 07:53 Normal [facility] CBC AUTO DIFFon 07-22-2022 BASO # 0.0 103/ul Normal 0.0-0.1 [facility] Comment on above: Performed By: #### C BC #### [facility] [address] [place] [address] Dr. Aung Mohamud Basophils/100 WBC (Bld) 0.2 % Normal 0.2-2.0 [facility] Comment on above: Performed By: #### C BC #### [facility] [address] [place] [address] Dr. Aung Mohamud EO # 0.1 103/ul Normal 0.0-0.7 [facility] Comment on above: Performed By: #### C BC #### [facility] [address] [place] [address] Dr. Aung Mohamud Eosinophils/100 WBC (Bld) 2.4 % Normal 0.9-7.0 [facility] Comment on above: Performed By: #### C BC #### [facility] [address] [place] [address] Dr. Aung Mohamud Erythrocyte distribution width (RBC) [Ratio] 14.1 % Normal 11.0-15.0 [facility] Comment on above: Performed By: #### C BC #### [facility] [address] [place] [address] Dr. Aung Mohamud Hematocrit (Bld) [Volume fraction] 43.3 % Normal 36.0-48.0 [facility] Comment on above: Performed By: #### C BC #### [facility] [address] [place] [address] Dr. Aung Mohamud Hemoglobin (Bld) [Mass/Vol] 14.5 g/dL Normal 12.0-16.0 [facility] Comment on above: Performed By: #### C BC #### [facility] [address] [place] [address] Dr. Aung Mohamud IG # 0.02 10e3/ul Normal 0.00-0.03 [facility] Comment on above: Performed By: #### C BC #### [facility] [address] [place] [address] Dr. Aung Mohamud IG % 0.3 % Normal 0.0-0.5 [facility] Comment on above: Performed By: #### C BC #### [facility] [address] [place] [address] Dr. Aung Mohamud LYMPH # 1.5 103/ul Normal 1.2-3.8 [facility] Comment on above: Performed By: #### C BC #### [facility] [address] [place] [address] Dr. Aung Mohamud Lymphocytes/100 WBC (Bld) 24.6 % Normal 20.5-60.0 [facility] Comment on above: Performed By: #### C BC #### [facility] [address] [place] [address] Dr. Aung Mohamud MANUAL DIFF REQ NO Normal [facility] Comment on above: Performed By: #### C BC #### [facility] [address] [place] [address] Dr. Aung Mohamud MCH (RBC) [Entitic mass] 31.1 pg Normal 26.7-34.0 [facility] Comment on above: Performed By: #### C BC #### [facility] [address] [place] [address] Dr. Aung Mohamud MCHC (RBC) [Mass/Vol] 33.5 g/dL Normal 29.9-35.2 [facility] Comment on above: Performed By: #### C BC #### [facility] [address] [place] [address] Dr. Aung Mohamud MCV (RBC) [Entitic vol] 92.9 fL Normal 81.0-99.0 [facility] Comment on above: Performed By: #### C BC #### [facility] [address] [place] [address] Dr. Aung Mohamud MONO # 0.3 103/ul Normal 0.3-0.8 [facility] Comment on above: Performed By: #### C BC #### [facility] [address] [place] [address] [address] Aung Mohamud Monocytes/100 WBC (Bld) 4.9 % Normal 1.7-12.0 [facility] Comment on above: Performed By: #### C BC #### [facility] [address] [place] [address] [address] Aung Mohamud NEUT # 4.0 103/ul Normal 1.4-6.5 [facility] Comment on above: Performed By: #### C BC #### [facility] [address] [place] [address] [address] Aung Mohamud Neutrophils/100 WBC (Bld) 67.6 % Normal 43.0-75.0 [facility] Comment on above: Performed By: #### C BC #### [facility] [address] [place] [address] Dr. Aung Mohamud Platelet mean volume (Bld) [Entitic vol] 10.2 fL Normal 9.5-13.5 [facility] Comment on above: Performed By: #### C BC #### [facility] [address] [place] [address] Dr. Aung Mohamud PLT 333 103/ul Normal 150-450 [facility] Comment on above: Performed By: #### C BC #### [facility] [address] [place] [address] Dr. Aung Mohamud RBC 4.66 106/ul Normal 4.20-5.40 [facility] Comment on above: Performed By: #### C BC #### [facility] [address] [place] [address] Dr. Aung Mohamud WBC 5.9 103/ul Normal 4.0-11.0 [facility] Comment on above: Performed By: #### C BC #### [facility] [address] [place] [address] Dr. Aung Mohamud FREE THYROXINE INDEX T7on FTI 5.00 Critically high 1.30-4.50 [facility] Comment on above: Performed By: #### L IPID, T7, CMP, TSH ####[facility] [address] [place] [phone] Mohamud T3U 37.0 % Normal 30.0-39.0 [facility] Comment on above: Performed By: #### L IPID, T7, CMP, TSH ####[facility] [address] [place], [place] [address]PzRajwinder Mohamud T4 [Mass/Vol] 13.50 ug/dL Normal 4.80-13.90 [facility] Comment on above: Performed By: #### L IPID, T7, CMP, TSH ####[facility] [address] [place] [phone] Mohamud GLYCOHEMOGLOBIN A1Con 2022 ADA RECOMMENDATION SEE BELOW Normal [facility] Comment on above: Result Comment: ADA RECOMMENDED LIMIT 4.0 - 6.0 ADA THERAPEUTIC TARGET < 7.0 ACTION SUGGESTED > 7.0 Performed By: #### A 1C #### [facility] [address] [place] [address] [address] Aung Mohamud Glucose [Mass/Vol] 117 mg/dL Normal [facility] Comment on above: Performed By: #### A 1C #### [facility] [address] [place] [address] [address] Aung Mohamud HbA1c (Bld) [Mass fraction] 5.7 % Normal 4.5-6.2 [facility] Comment on above: Performed By: #### A 1C #### [facility] [address] [place] [address] [address] Aung Mohamud IRONon 07-22-2022 Iron [Mass/Vol] 118.0 ug/dL Normal 50.0-170.0 [facility] Comment on above: Performed By: #### V ITAD, IRON #### [facility] [address] [place] [address] [address] Aung Mohamud LIPID PROFILEon 07-22-2022 CHOL-HDL RATIO NORM SEE BELOW Normal [facility] Comment on above: Result Comment: 3.3 - 4.4 LOW RISK 4.4 - 7.1 AVERAGE RISK 7.1 - 11.0 MODERATE RISK >11.0 HIGH RISK Performed By: #### L IPID, T7, CMP, TSH ####[facility] [address] [place] [phone]. Aung Mohamud Cholesterol [Mass/Vol] 209 mg/dL Critically high <=200 [facility] Comment on above: Performed By: #### L IPID, T7, CMP, TSH ####[facility] [address] [place] [id number]. Aung Mohamdu Cholesterol in HDL [Mass/Vol] 66 mg/dL Critically high 40-60 [facility] Comment on above: Performed By: #### L IPID, T7, CMP, TSH ####[facility] [address] [place] [address]Dr. Aung Mohamud Cholesterol in LDL [Mass/Vol] 118.8 mg/dL Normal [facility] Comment on above: Performed By: #### L IPID, T7, CMP, TSH ####[facility] [address] [place] [phone]. Aung Mohamud Cholesterol.total/Cho lesterol in HDL [Mass ratio] 3.2 {ratio} Normal [facility] Comment on above: Performed By: #### L IPID, T7, CMP, TSH ####[facility] [address] [place] [id number]. Rosalinaharvey Mohamud HDL NORMAL > or = 60 mg/dl - LOW CARDIOVASCULAR RISK <40 mg/dl - HIGH CARDIOVASCULAR RISK Normal [facility] Comment on above: Performed By: #### L IPID, T7, CMP, TSH ####[facility] [address] [place] [id number]. Aung Mohamud LDL CALC NORMAL SEE BELOW Normal [facility] Comment on above: Result Comment: <100 mg/dl OPTIMAL 100 - 129 mg/dl NEAR OR ABOVE OPTIMAL 130 - 159 mg/dl BORDERLINE HIGH 160 - 189 mg/dl HIGH >190 mg/dl VERY HIGH Performed By: #### L IPID, T7, CMP, TSH ####[facility] [address] [place] [id number]. Aung Mohamud Triglyceride [Mass/Vol] 121 mg/dL Normal <=150 [facility] Comment on above: Performed By: #### L IPID, T7, CMP, TSH ####[facility] [address] [place] [address]Dr. Aung Mohamud VLDL CALC 24.2 mg/dL Normal [facility] Comment on above: Performed By: #### L IPID, T7, CMP, TSH ####[facility] [address] [place] [address]Dr. Aung Mohamud PROF 14(COMP METB)on 023 Albumin [Mass/Vol] 3.7 g/dL Normal 3.4-5.0 [facility] Comment on above: Performed By: #### L IPID, T7, CMP, TSH ####[facility] [address] [place] [address]Dr. Aung Mohamud Albumin/Globulin [Mass ratio] 0.9 {ratio} Normal [facility] Comment on above: Performed By: #### L IPID, T7, CMP, TSH ####[facility] [address] [place] [address]Dr. Aung Mohamud ALP [Catalytic activity/Vol] 171 U/L Critically high 46-116 [facility] Comment on above: Performed By: #### L IPID, T7, CMP, TSH ####[facility] [address] [place] [address]Dr. Aung Mohamud ALT [Catalytic activity/Vol] 16 U/L Normal 14-59 [facility] Comment on above: Performed By: #### L IPID, T7, CMP, TSH ####[facility] [address] [place] [address]Dr. Aung Mohamud Anion gap [Moles/Vol] 10.9 mmol/L Normal [facility] Comment on above: Performed By: #### L IPID, T7, CMP, TSH ####[facility] [address] [place] [address]Dr. Aung Mohamud AST [Catalytic activity/Vol] 18 U/L Normal 15-37 [facility] Comment on above: Performed By: #### L IPID, T7, CMP, TSH ####[facility] [address] [place] [address]Dr. Aung Mohamud Bilirubin [Mass/Vol] 0.3 mg/dL Normal 0.2-1.0 [facility] Comment on above: Performed By: #### L IPID, T7, CMP, TSH ####[facility] [address] [place] [address]Dr. Aung Mohamud Calcium [Mass/Vol] 9.4 mg/dL Normal 8.5-10.[address] [facility] Comment on above: Performed By: #### L IPID, T7, CMP, TSH ####[facility] [address] [place] [address]Dr. Aung Mohamud Chloride [Moles/Vol] 103 mmol/L Normal 98-107 [facility] Comment on above: Performed By: #### L IPID, T7, CMP, TSH ####[facility] [address] [place] [address]Dr. Aung Mohamud CO2 [Moles/Vol] 27.8 mmol/L Normal 21.0-32.[address] [facility] Comment on above: Performed By: #### L IPID, T7, CMP, TSH ####[facility] [address] [place] [address]Dr. Aung Mohamud Creatinine [Mass/Vol] 0.71 mg/dL Normal 0.55-1.02 [facility] Comment on above: Performed By: #### L IPID, T7, CMP, TSH ####[facility] [address] [place] [address]Dr. Yilan Mohamud EGFR-AF SYRIAN >60 Normal >=[address] [facility] Comment on above: Performed By: #### L IPID, T7, CMP, TSH ####[facility] [address] [place] [address]Dr. Yiharvey Mohamud EGFR-NON AF SYRIAN >60 Normal >=60 [facility] Comment on above: Performed By: #### L IPID, T7, CMP, TSH ####[facility] [address] [place] [address]Dr. Aung Mohamud Globulin (S) [Mass/Vol] 4.3 g/dL Normal [facility] [place] [facility] Comment on above: Performed By: #### L IPID, T7, CMP, TSH ####[facility] [address] [place] [address]Dr. Aung Mohamud Glucose [Mass/Vol] 91 mg/dL Normal 74-[address] [facility] Comment on above: Performed By: #### L IPID, T7, CMP, TSH ####[facility] [address] [place] [address]Dr. Aung Mohamud Potassium [Moles/Vol] 3.7 mmol/L Normal 3.5-5.1 [facility] Comment on above: Performed By: #### L IPID, T7, CMP, TSH ####[facility] [address] [place] [address]Dr. Aung Mohamud Protein [Mass/Vol] 8.0 g/dL Normal 6.4-8.[address] [facility] Comment on above: Performed By: #### L IPID, T7, CMP, TSH ####[facility] [address] [place], [place] [address]Dr. Aung Mohamud Sodium [Moles/Vol] 138 mmol/L Normal 136-[address] [facility] Comment on above: Performed By: #### L IPID, T7, CMP, TSH ####[facility] [address] [place] [address]Dr. Aung Mohamud Urea nitrogen [Mass/Vol] 13.0 mg/dL Normal 7.0-18.0 [facility] [place] [facility] Comment on above: Performed By: #### L IPID, T7, CMP, TSH ####[facility] [address] [place] [address]Dr. Aung Mohamud Urea nitrogen/Creatinine [Mass ratio] 18.3 mg/mg Normal [facility] Comment on above: Performed By: #### L IPID, T7, CMP, TSH ####[facility] [address] [place] [address]Dr. Aung Mohamud TSHon 07-22-2022 TSH 0.706 uIU/mL Normal 0.358-3.740 [facility] Comment on above: Performed By: #### L IPID, T7, CMP, TSH ####[facility] [address] [place], [place] [address]RrDr. Aung Mohamud VITAMIN D 25 OHon 07-22-2022 VIT D 25-OH 10.2 ng/mL Normal [facility] Comment on above: Performed By: #### V ITAD, IRON #### [facility] [address] [place], [place] [address] Dr. Aung Mohamud VIT D RANGES SEE BELOW Normal [facility] Comment on above: Result Comment: <20 ng/mL Vit D deficient 20 - <30 ng/mL Vit D insufficient 30 - 100 ng/mL Vit D sufficient >100 ng/mL Potential Toxicity Performed By: #### V ITAD, IRON #### [facility] [address] [place], [place] [address] Dr. Aung Mohamud NOVEL CORONAVIRUS NASOPHARYN GEAL - [facility] SPECIMEN ONLYon 09-16-2020 SARS-CoV-2 (COVID-19) RNA JOSE ROBERTO+probe Ql (Unsp spec) Not detected Normal NOT DETECTED [facility] Comment on above: Order Comment: Viral transport media - Collection must be done while wearing N-95 mask, eye protection, gown and gloves. Please label ALL specimens as 2019-nCoV rule out and deliver by hand. This test was performed using Medical Billing Service Mediated Amplification and has been approved as Emergency Use Authorization (EUA) for the qualitative detection of SARS-CoV-2 nucleic acid. Result Comment: [facility] Negative results do [...] or clinically deteriorating. Performed By: #### L [id number] #### [facility] (DEFAULT) [address] [address] Outside Colonoscopyon 2020 Outside Colonoscopy [id number] C#[id number]:127 Normal [facility] Lab Reportson 06-24-2020 Lab Reports [id number]#[id number]:127 Normal [facility] Provider Letter FTMCon 06-[address] [facility] Rachel Carvajal, [address] [place] [address] Re: MELISSA ANGEL Date of : 1955 Thank you for your referral of Melissa Angel who was seen on consultation on 2020, for positive occult stool. A colonoscopy is planned for further evaluation. I have enclosed my consultation notes for your review. I will be happy to follow Melissa should her symptoms persist. Sincerely, Hernán Raymundo MD General Surgery [facility] Consent for Procedure/Surger yon 06-19-2020 Consent for Procedure/Surgery [id number]#[id number]:127 [facility] Facesheeton 06-19-2020 Facesheet [id number]#1.00CD:127 [facility] Ambulatory Clinical Summaryo n 06-18-2020 Ambulatory Clinical Summary {[id number]}CD:[id number] Normal [facility] General Surgery Office/Clini c Noteon 06-18-2020 General [...] 06/18/2020 Family History Hypertension: Mother and Father. Normal [facility] Comment on above: Result Comment: Elec tronically Signed By: DENIZ STRATTON, Hernán Buchanan\Date and Time Signed: 06/18/20 15:05 EST Physician Referralon 021 Physician Referral [id number]#1.00CD:127 Normal [facility] Encounters Encounter Date Encounter Type Care Provider Facility Start: 01-25-2025 ambulatory MARQUEZ [facility] Start: 01-25-2025 End: 01-25-2025 Subsequent hospital visit by physician Rachel Carvajal MD Work Phone: [facility] Laboratory Comment on above: Papillary thyroid ca rcinoma (HCC) Start: 10-26-2024 End: 10-26-2024 ambulatory [facility] Start: 09-26-2024 ambulatory [facility] Start: 05-04-2024 End: 05-04-[address] [facility] Start: 05-04-2024 End: 05-04-2024 Subsequent hospital visit by physician [facility] Comment on above: Arrived Start: 05-01-2024 End: 05-01-2024 ambulatory SHAQ [facility] Start: 05-01-2024 End: 05-01-2024 Subsequent hospital visit by physician Maricel Horan [facility] Comment on above: Arrived Start: 04-27-2024 End: 04-27-2024 ambulatory SHAQ [facility] Start: 04-27-2024 End: 04-27-2024 Subsequent hospital visit by physician Maricel Horan [facility] Comment on above: Arrived Papillary thyroid ca rcinoma (CMS-HCC) (Primary Dx) Start: 04-26-2024 End: 05-09-2024 Telephone encounter [facility] - [facility] On[facility] Start: 04-26-2024 End: 04-26-2024 ambulatory [facility] Start: 04-24-2024 End: 04-24-[address] [facility] Start: 04-24-2024 End: 04-24-2024 Subsequent hospital visit by physician Wendy Saha PTA [facility] Physical Therapy Comment on above: Arrived Start: 04-22-2024 ambulatory [facility] Ambulatory [facility] Start: 04-20-2024 End: 04-20-2024 ambulatory [facility] Start: 04-20-2024 End: 04-20-2024 Subsequent hospital visit by physician Maricel Horan PTA [facility] Physical Therapy Comment on above: Arrived Start: 04-18-2024 End: 04-18-2024 ambulatory [facility] Start: 04-18-2024 End: 04-18-2024 Subsequent hospital visit by physician Paula Mccarty PTA [facility] Physical Therapy Comment on above: Arrived Start: 04-17-2024 ambulatory [facility] Start: 04-11-2024 End: 04-11-2024 ambulatory [facility] Start: 04-11-2024 End: 04-11-2024 Subsequent hospital visit by physician Paula Mccarty PTA [facility] Physical Therapy Comment on above: Arrived Start: 04-10-2024 End: 04-10-2024 [facility] Start: 04-10-2024 End: 04-10-2024 Subsequent hospital visit by physician Levi Armas PT [facility] Physical Therapy Comment on above: Arrived Start: 04-06-2024 End: 04-06-2024 ambulatory [facility] Start: 04-06-2024 End: 04-06-2024 Subsequent hospital visit by physician Henny Kohler PTA [facility] Physical Therapy Comment on above: Arrived Start: 04-03-2024 End: 04-03-2024 ambulatory [facility] Start: 04-03-2024 End: 04-03-2024 Subsequent hospital visit by physician Levi Armas PT [facility] Physical Therapy Comment on above: Arrived Start: 03-30-2024 End: 03-30-2024 [facility]ulatory [facility] Start: 03-30-2024 End: 03-30-2024 Subsequent hospital visit by physician Henny Kohler PTA [facility] Physical Therapy Comment on above: Arrived Start: 03-28-2024 End: 03-28-2024 ambulatory SHAQ [facility] Start: 03-28-2024 End: 03-28-2024 Subsequent hospital visit by physician Paula Mccarty SALES ENGAGEMENT EXECUTIVE [facility] Physical Therapy Comment on above: Arrived Start: 03-24-2024 End: 03-24-2024 ambulatory [facility] Start: 03-24-2024 End: 03-24-2024 Subsequent hospital visit by physician Bean Koenig SALES ENGAGEMENT EXECUTIVE [facility] Physical Therapy Comment on above: Arrived Start: 03-22-2024 ambulatory SHAQ [facility] Start: 03-06-2024 End: 03-06-2024 ambulatory [facility] Start: 03-06-2024 End: 03-06-2024 Subsequent hospital visit by physician Maricel Horan SALES ENGAGEMENT EXECUTIVE [facility] Physical Therapy Comment on above: Arrived Start: 03-02-2024 End: 03-02-2024 ambulatory [facility] Start: 02-29-2024 End: 02-29-2024 ambulatory [facility] Start: 02-29-2024 End: 02-29-2024 Subsequent hospital visit by physician Levi Armas PT [facility] Physical Therapy Comment on above: Arrived Start: 04-28-2023 End: 04-28-2023 ambulatory ANETTE RAJPUT Not Available Start: 10-01-[address] DOCTOR CORLEY Facility :[facility]1 Start: 08-11-2022 End: 08-12-[address] RACHEL CARVAJAL . Facility:[facility] Start: 07-23-2022 End: 07-24-[address] RACHEL CARVAJAL . Facility:[facility] Start: 07-22-2022 End: 07-23-[address] RACHEL CARVAJAL . Facility:[facility] Start: 11-14-[address] JI Butler ty:H1 Procedures Date Procedure Procedure Detail Performing Clinician Start: 01-25-2025 Comprehensive metabolic panel Reena Herring MD Work Phone: Start: 11-14-2020 History of radiation therapy History of radioactive iodine thyroid ablation Lida Samuel COMMANDING OFFICER [employer]ICE PATROL OFFICER Work Phone: Plan of Treatment Date Care Activity Detail Author Start: 02-10-2033 DTaP,Tdap and Td Vac cines (2 - Td or Tdap) DTaP,Tdap and Td Vaccines (2 - Td or Tdap) [facility] Start: 02-10-2033 DTaP/Tdap/Td vaccine (2 - Td or Tdap) DTaP/Tdap/Td vaccine (2 - Td or Tdap) [facility] Start: 01-16-2032 Respiratory Syncytia l Virus (RSV) or age 60 yrs+ (1 - 1-dose 75+ series) Respiratory Syncytial Virus (RSV) or age 60 yrs+ (1 - 1-dose 75+ series) [facility] Start: 04-26-2025 Adult BMI Screening Adult BMI Screen ing [facility] Start: 04-26-2025 Tobacco Screening Tobacco Screening [facility] Start: 02-06-2025 End: 02-06-2025 Patient encounter procedure 02/06/2025 1:00 PM EDT Office Visit [facility] [place] [address] Reena Herring MD [address] [place] [phone] Follow up with labs [facility] [address] [place] Comment on above: Follow up with labs Start: 2025 COVID-19 Vaccine ( season) COVID-19 Vaccine ( season) [facility] Start: 12-15-2024 Influenza vaccination Flu vaccine (# 1) [facility] Start: 11-10-2024 End: 11-10-2024 Patient encounter procedure 11/10/2024 1:30 PM EDT Appointment [facility] - Radiation Oncology [address] [place] [phone] [facility] - Radiation Oncology Start: 05-04-2024 End: 05-04-2024 Patient encounter procedure 05/04/2024 2:15 PM EST Appointment [facility] [address] [place] [phone] Levi Armas, PT [facility] Comment on above: [facility] Start: 05-01-2024 End: 05-01-2024 Patient encounter procedure 05/01/2024 3:00 PM EST Appointment [facility] [address] [place] [phone] Maricel Horan [facility] Start: 04-27-2024 End: 04-27-2024 Patient encounter procedure 04/27/2024 2:15 PM EST Appointment [facility] [address] [place] [phone] Maricel Horan [facility] Start: 04-24-2024 End: 04-24-2024 Patient encounter procedure [facility] Start: 04-20-2024 End: 04-20-2024 Patient encounter procedure 04/20/2024 2:15 PM EST Appointment [facility] [address] [place] [phone] Maricel Horan [facility] Start: 04-18-2024 End: 04-18-2024 Patient encounter procedure 04/18/2024 12:00 PM EST Appointment [facility] [address] [place] [phone] Paula Mccarty PTA [facility] Start: 04-17-2024 End: 04-17-2024 Patient encounter procedure 04/17/2024 1:45 PM EST Appointment [facility] [address] [place] [phone] Paula Mccarty PTA [facility] Start: 04-11-2024 End: 04-11-2024 Patient encounter procedure 04/11/2024 12:00 PM EST Appointment [facility] [address] [place] [phone] Paula Mccarty, REYES [facility] Start: 04-10-2024 End: 04-10-2024 Patient encounter procedure 04/10/2024 12:15 PM EST Appointment [facility] [address] [place] [phone] Levi Armas, PT upoc [facility] Comment on above: upoc Start: 04-06-2024 End: 04-06-2024 Patient encounter procedure 04/06/2024 12:30 PM EST Appointment [facility] [address] [place] [phone] Henny Kohler, REYES [facility] Start: 04-03-2024 End: 04-03-2024 Patient encounter procedure [facility] Start: 03-30-2024 End: 03-30-2024 Patient encounter procedure [facility] Start: 03-28-2024 End: 03-28-2024 Patient encounter procedure 03/28/2024 2:45 PM EST Appointment [facility] [address] [place] [phone] Paula Mccarty PTA [facility] Start: 03-27-2024 End: 03-27-2024 Patient encounter procedure 03/27/2024 12:45 PM EST Appointment [facility] [address] [place] [phone] Maricel Horan PTA [facility] Start: 03-24-2024 End: 03-24-2024 Patient encounter procedure 03/24/2024 1:15 PM EST Appointment [facility] [address] [place] [phone] Henny Kohler, REYES [facility] Start: 03-22-2024 End: 03-22-2024 Patient encounter procedure 03/22/2024 1:45 PM EST Appointment [facility] [address] [place] [phone] Maricel Horan PTA [facility] Start: 03-06-2024 End: 03-06-2024 Patient encounter procedure 03/06/2024 12:00 PM EDT Appointment [facility] [address] [place] [phone] Maricel Horan SALES ENGAGEMENT EXECUTIVE [facility] Start: 03-02-2024 End: 03-02-2024 Patient encounter procedure 03/02/2024 3:45 PM EDT Appointment [facility] [address] [place], [place] [phone] Maricel Horan PTA [facility] Start: 03-02-2024 Annual Wellness Visi t (Medicare) Annual Wellness Visit (Medicare) [facility] Start: 01-16-2024 COVID-19 Vaccine ( season) COVID-19 Vaccine ( season) [facility] Start: 01-16-2024 Influenza vaccination Influenza Vacc ine [facility] [employer] [facility] Start: 12-16-2023 Influenza vaccination Flu vaccine (# 1) [facility] [employer] Start: 2022 Fall Risk Screening [facility] Start: 2017 Respiratory Syncytia l Virus (RSV) or age 60 yrs+ (1 - 1-dose 60+ series) Respiratory Syncytial Virus (RSV) or age 60 yrs+ (1 - 1-dose 60+ series) [facility] Start: 01-16-2012 Screening for osteoporosis DEXA (modify frequency per FRAX score) [facility] Start: 2007 Shingles vaccine (1 of 2) Gates gles vaccine (1 of 2) [facility] Start: 2002 Screening for malign ant neoplasm of colon [facility] Start: 1997 Lipid panel [facility] [employer] Start: 1997 Screening for malign ant neoplasm of breast Breast cancer screen [facility] Start: 01-16-1976 Administration of varicella zoster vaccine Zoster (Shingles) Vaccine (1 of 2) [facility] [employer] [facility] Start: 01-16-1976 Pneumococcal 50+ yea rs Vaccine (1 of 2 - PCV) Pneumococcal 50+ years Vaccine (1 of 2 - PCV) [facility] Start: 1975 Hepatitis C screening Hepatitis C sc reen [facility] Start: 1969 Depression Screen Depression Screen [facility] Start: 1969 Depression Screening Depression Scre [facility]ing [facility] Start: 1963 Pneumococcal 65+ yea rs Vaccine (1 of 2 - PCV) Pneumococcal 65+ years Vaccine (1 of 2 - PCV) [facility] Start: 1955 Tobacco Counseling Tobacco Counselin [facility] End: 01-25-2025 Anti-Thyroglobulin Antibody [facility] Work Phone: Comment on above: 1 Occurrences starti ng 01/25/2025 until 01/25/2025 End: 01-25-2025 THYROGLOBULIN QNT. [facility] Work Phone: Comment on above: 1 Occurrences starti ng 01/25/2025 until 01/25/2025 Payers Date Payer Category Payer Managed Care Other (unspecified) [facility] [place] [id number] 2022 Unknown [id number]. [id number] 2021 Medicare MEDICARE [id number] 2019 Unknown [id number] 1.2.840.447980.1.13.239. 2.7.3.100928.315 1959 Medicare [id number] 1959 Self-pay 1959 Unknown [id number] 1957 Unknown [id number] 2.16.840.1.253885.3.579. 2.593 1957 Unknown [id number] 2.16.840.1.350867.3.579. 2.593 1957 Unknown [id number] 2.16.840.1.996152.3.579. 2.593 1957 Unknown [id number] 2.16.840.1.089535.3.579. 2.593 1957 Unknown [id number] 2.16.840.1.753995.3.579. 2.593 1957 Unknown [id number] 2.16.840.1.729941.3.579. 2.593 1957 Unknown [id number] 2.16.840.1.576554.3.579. 2.1259 1957 Unknown [id number] 2.16.840.1.699393.3.579. 2.173 1957 Unknown [id number] 2.16.840.1.688969.3.579. 2.173 1957 Unknown [id number] 2.16.840.1.337705.3.579. 2.173 1957 Unknown [id number] 2.16.840.1.120569.3.579. 2.173 1957 Unknown [id number] 2.16.840.1.397274.3.579. 2.173 1957 Unknown [id number] 2.16.840.1.567724.3.579. 2.173 1957 Unknown [id number] 2.16.840.1.215849.3.579. 2.173 1957 Unknown [id number] 2.16.840.1.163481.3.579. 2.173 1957 Unknown [id number] 2.16.840.1.828225.3.579. 2.173 1957 Unknown [id number] 2.16.840.1.295436.3.579. 2.173 1957 Unknown [id number] 2.16.840.1.627774.3.579. 2.173 1957 Unknown [id number] 2.16.840.1.644386.3.579. 2.173 1957 Unknown [id number] 2.16.840.1.991316.3.579. 2. 1957 Unknown [id number] 2.16.840.1.227332.3.579. 2.173 1957 Unknown [id number] 2.16.840.1.139290.3.579. 2.173 1957 Unknown [id number] 2.16.840.1.450000.3.579. 2. 1957 Unknown [id number] 2.16.840.1.701941.3.579. 2.173 1957 Unknown [id number] 2.16.840.1.795764.3.579. 2. 1957 Unknown [id number] 2.16.840.1.395207.3.579. 2.1285 1957 Unknown [id number] 2.16.840.1.841679.3.579. 2.1285 1957 Unknown [id number] 2.16.840.1.198366.3.579. 2.1285 1957 Unknown [id number] 2.16.840.1.964733.3.579. 2.1285 1957 Unknown [id number] 2.16.840.1.502140.3.579. 2.754 Social History Date Type Detail Facility Start: 09-15-2020 End: 04-26-2024 Tobacco smoking status NHIS Smokes tobacco daily [facility] History of tobacco use Cigarette Smoker B on [facility] Start: 09-15-2020 End: 04-26-2024 Tobacco use and exposure Smokeless tobacco non-user [facility] Start: 09-15-2020 Alcoholic beverage intake Curr ent non-drinker of alcohol (finding) [facility] Start: 09-04-2020 End: 09-15-2020 History of Social function [facility] Start: 09-04-2020 End: 09-15-2020 Tobacco use panel [facility] Start: 1955 Sex assigned at Not on file B on [facility] Start: 04-26-2024 Alcoholic beverage intake Ex-drinker (finding) [facility] Do you belong to any clubs or organizations such as temple groups, unions, fraternal or athletic groups, or school groups? No [facility] Are you now , , , , never or living with a partner? [facility] How often to you hav e a drink containing alcohol? Never [facility] Average Number of Drinks Not on file [facility] Do you feel stress - tense, restless, nervous, or anxious, or unable to sleep at night because your mind is troubled all the time - these days [OSQ] Only a little [facility] Start: 09-04-2020 Education 12 [facility] Start: 06-26-2012 End: 08-28-2020 Sex Female (finding) [facility] Clinical Notes 03-06-2024 to 04-27-2024 Maricel Horan PTA - 04/27/2024 2:15 PM ESTTelephone Encounter - Lidia Beckett - 04/26/2024 2:01 PM ESTTelephone Encounter - SARINA Ritter - 04/26/2024 2:01 PM EST Note Date & Type Note Facility 04-27-2024 History of Presen t illness Narrative [facility] Daily Note Patient: Melissa Angel : 1955 [facility] #: [id number] Referring Physician: Shaq Chavez MD Date: 04/27/2024 [...] interventions and modalities to decrease pain -MET Orthotic And Prosthetic Technician Goals Time Frame for Orthotic And Prosthetic Technician Goals : 5 weeks Orthotic And Prosthetic Technician Goal 1: Patient will be independent and compliant with a HEP -MET Orthotic And Prosthetic Technician Goal 2: Patient will improve R shoulder ROM to match L for ADLs. -progressing Half-Way Goal 3: Patient will improve R shoulder strength to >/= 4/5 in all major joints and planes. -progressing Orthotic And Prosthetic Technician Goal 4: Patient will report 70% improvement in overall symptoms and function. -MET Minutes Tracking: Time In: 1415 Time Out: 1505 Minutes: 50 Timed Code Treatment Minutes: 48 Minutes Maricel Horan, SALES ENGAGEMENT EXECUTIVE Date: 04/27/2024 documented in this encounter [facility] 04-26-2024 Miscellaneous Notes Formattin g of this note might be different from the original. Dr. Sotelo's office (endocrine) called and you made a referral to them for patient and they are not accepting new patients at this time. I called and spoke to Melissa. Will redirect the referral to Dr. Otoniel Herrnig in [place] as this is closer to her house. Will refax order to his office documented in this encounter [facility] 04-26-20[address]phone enc[address] er Note Dr. Sotelo's office (endocrine) called and you made a referral to them for patient and they are not accepting new patients at this time. [facility] 04-26-2024 Telephone encount er Note I called and spoke to Melissa. Will redirect the referral to Dr. Otoniel Herring in [place] as this is closer to her house. Will refax order to his office [facility] Work Phone: 04-20-2024 History of Presen t illness Narrative [facility] Daily Note Patient: Melissa Angel : 1955 CSN #: [id number] Referring Physician: Shaq Chavez MD Date: 04/20/2024 [...] interventions and modalities to decrease pain -MET Half-Way Goals Time Frame for Orthotic And Prosthetic Technician Goals : 5 weeks Orthotic And Prosthetic Technician Goal 1: Patient will be independent and compliant with a HEP -MET Half-Way Goal 2: Patient will improve R shoulder ROM to match L for ADLs. -progressing Orthotic And Prosthetic Technician Goal 3: Patient will improve R shoulder strength to >/= 4/5 in all major joints and planes. -progressing Orthotic And Prosthetic Technician Goal 4: Patient will report 70% improvement in overall symptoms and function. -progressing Minutes Tracking: Time In: 1413 Time Out: 1508 Minutes: 55 Timed Code Treatment Minutes: 54 Minutes Maricel Horan PTA Date: 04/20/2024 documented in this encounter [facility] 04-11-2024 History of Presen t illness Narrative [facility] Daily Note Patient: Melissa Angel : 1955 CSN #: [id number] Referring Physician: Shaq Chavez MD Date: 04/11/2024 Treatment Diagnosis: Subacromial bursitis, shoulder impingement Onset Date: 02/28/22 PT Insurance Information: Jessenia Goyal Total # of Visits Approved: 16 Per Physician Order Total # of Visits to Date: 10 No Show: 0 Canceled Appointment: 0 05/03/24 Plan of Care/Recert Due Pre-Treatment Pain: 2/10 Subjective: Pt. reports 2/10 pain prior to therapy session, no complaints [...] interventions and modalities to decrease pain -MET Half-Way Goals Time Frame for Orthotic And Prosthetic Technician Goals : 5 weeks Half-Way Goal 1: Patient will be independent and compliant with a HEP -MET Orthotic And Prosthetic Technician Goal 2: Patient will improve R shoulder ROM to match L for ADLs. -progressing Half-Way Goal 3: Patient will improve R shoulder strength to >/= 4/5 in all major joints and planes. -progressing Half-Way Goal 4: Patient will report 70% improvement in overall symptoms and function. -progressing Minutes Tracking: Time In: 1201 Time Out: 1255 Minutes: 54 Paula Mccarty PTA Date: 04/11/2024 documented in this encounter [facility] 04-10-2024 History of Presen t illness Narrative [facility] Daily Note Patient: Melissa Angel : 1955 CSN #: [id number] Referring Physician: hSaq Chavez MD Date: 04/10/2024 Treatment Diagnosis: Subacromial bursitis, shoulder impingement Onset Date: 02/28/22 PT Insurance Information: Jessenia Goyal Total # of Visits Approved: 16 Per Physician Order Total # of Visits to Date: 9 No Show: 0 Canceled Appointment: 0 05/03/24 Plan of Care/Recert Due Pre-Treatment Pain: 05/26 Subjective: Patient reports maybe a /10 pain coming into therapy. She reports she [...] interventions and modalities to decrease pain -MET Half-Way Goals Time Frame for Orthotic And Prosthetic Technician Goals : 5 weeks Orthotic And Prosthetic Technician Goal 1: Patient will be independent and compliant with a HEP -MET Orthotic And Prosthetic Technician Goal 2: Patient will improve R shoulder ROM to match L for ADLs. -progressing Orthotic And Prosthetic Technician Goal 3: Patient will improve R shoulder strength to >/= 4/5 in all major joints and planes. -progressing Half-Way Goal 4: Patient will report 70% improvement in overall symptoms and function. -progressing Minutes Tracking: Time In: 1215 Time Out: 1305 Minutes: 50 Timed Code Treatment Minutes: 48 Minutes Levi Armas PT, DPT, OCS, Cert. DN Date: 04/10/2024 documented in this encounter [facility] 04-06-2024 History of Presen t illness Narrative [facility] Daily Note Patient: Melissa Angel : 1955 CSN #: [id number] Referring Physician: Shaq Chavez MD Date: 04/06/2024 Treatment Diagnosis: Subacromial bursitis, shoulder impingement Onset Date: 02/28/22 PT Insurance Information: Hazen Jay Jay Total # of Visits Approved: [...] interventions and modalities to decrease pain -MET Half-Way Goals Time Frame for Orthotic And Prosthetic Technician Goals : 5 weeks Orthotic And Prosthetic Technician Goal 1: Patient will be independent and compliant with a HEP -MET Half-Way Goal 2: Patient will improve R shoulder ROM to match L for ADLs. -progressing Orthotic And Prosthetic Technician Goal 3: Patient will improve R shoulder strength to >/= 4/5 in all major joints and planes. -progressing Half-Way Goal 4: Patient will report 70% improvement in overall symptoms and function. -progressing Minutes Tracking: Time In: 1230 Time Out: 1330 Minutes: 60 Timed Code Treatment Minutes: 58 Minutes Henny Kohler PTA Date: 04/06/2024 documented in this encounter [facility] 04-03-2024 History of Presen t illness Narrative [facility] Daily Note Patient: Melissa Angel : 1955 CSN #: [id number] Referring Physician: Shaq Chavez MD Date: 04/03/2024 Treatment Diagnosis: Subacromial bursitis, shoulder impingement Onset Date: 02/28/22 PT Insurance Information: Jessenia Goyal Total # of Visits Approved: 16 Per Physician Order Total # of Visits to Date: 7 No Show: 0 Canceled Appointment: 0 05/03/24 Plan of Care/Recert Due Pre-Treatment Pain: 1-2 Subjective: Patient reports 1-2/10 shoulder pain coming [...] and 6 follow-up appointments 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 Activity Tolerance Activity Tolerance: Patient tolerated [...] interventions and modalities to decrease pain -MET Orthotic And Prosthetic Technician Goals Time Frame for Orthotic And Prosthetic Technician Goals : 5 weeks Half-Way Goal 1: Patient will be independent and compliant with a HEP -MET Orthotic And Prosthetic Technician Goal 2: Patient will improve R shoulder ROM to match L for ADLs. -progressing Orthotic And Prosthetic Technician Goal 3: Patient will improve R shoulder strength to >/= 4/5 in all major joints and planes. -progressing Half-Way Goal 4: Patient will report 70% improvement in overall symptoms and function. -progressing Minutes Tracking: Time In: 1245 Time Out: 1335 Minutes: 50 Timed Code Treatment Minutes: 48 Minutes Levi Armas PT, DPT, OCS, Cert. DN Date: 04/03/2024 documented in this encounter [facility] 03-30-2024 History of Presen t illness Narrative [facility] Daily Note Patient: Melissa Angel : 1955 CSN #: [id number] Referring Physician: Shaq Chavez MD Date: 03/30/2024 Treatment Diagnosis: Subacromial bursitis, shoulder impingement Onset Date: 02/28/22 PT Insurance Information: Hazen Ambthompson Total # of Visits Approved: 10 Per Physician Order Total # of Visits to Date: 6 No Show: 0 Canceled Appointment: 0 04/14/24 Plan of Care/Recert Due Pre-Treatment Pain: 3/10 Subjective: Patient reports R shoulder pain 3/10 prior to session. Exercises: Exercise 1: HEP: [...] interventions and modalities to decrease pain -MET Orthotic And Prosthetic Technician Goals Time Frame for Orthotic And Prosthetic Technician Goals : 5 weeks Half-Way Goal 1: Patient will be independent and compliant with a HEP -MET Orthotic And Prosthetic Technician Goal 2: Patient will improve R shoulder ROM to match L for ADLs. -progressing Half-Way Goal 3: Patient will improve R shoulder strength to >/= 4/5 in all major joints and planes. -progressing Orthotic And Prosthetic Technician Goal 4: Patient will report 70% improvement in overall symptoms and function. -progressing Minutes Tracking: Time In: 1400 Time Out: 1500 Minutes: 60 Timed Code Treatment Minutes: 57 Minutes Henny Kohler PTA Date: 03/30/2024 documented in this encounter [facility] 03-24-2024 History of Presen t illness Narrative [facility] Daily Note Patient: Melissa Angel : 1955 CSN #: [id number] Referring Physician: Shaq Chavez MD Date: 03/24/2024 Treatment Diagnosis: Subacromial bursitis, shoulder impingement Onset Date: 02/28/22 PT Insurance Information: Jessenia Goyal Total # of Visits Approved: 10 Per Physician Order Total # of Visits to Date: 4 No Show: 0 Canceled Appointment: 0 04/14/24 Plan of Care/Recert Due Pre-Treatment Pain: 08/24 Subjective: Pt reports she was gone for a bit traveling to [place] to see her parents. Pt rates current R shoulder pain a 3-08/24. Exercises: Exercise 1: HEP: Therapy ball circles, [...] interventions and modalities to decrease pain -MET Orthotic And Prosthetic Technician Goals Time Frame for Half-Way Goals : 5 weeks Half-Way Goal 1: Patient will be independent and compliant with a HEP -MET Orthotic And Prosthetic Technician Goal 2: Patient will improve R shoulder ROM to match L for ADLs. -progressing Orthotic And Prosthetic Technician Goal 3: Patient will improve R shoulder strength to >/= 4/5 in all major joints and planes. -progressing Orthotic And Prosthetic Technician Goal 4: Patient will report 70% improvement in overall symptoms and function. -progressing Minutes Tracking: Time In: 830 Time Out: 928 Minutes: 58 Timed Code Treatment Minutes: 55 Minutes Bean Koenig PTA Date: 03/24/2024 documented in this encounter [facility] 03-06-2024 History of Presen t illness Narrative [facility] Daily Note Patient: Melissa Angel : 1955 CSN #: [id number] Referring Physician: Shaq Chavez MD Date: 03/06/2024 Diagnosis: R rotator cuff tendinitis, M75.81, R shoulder bursitis, M75.51 Treatment Diagnosis: Subacromial bursitis, shoulder impingement Onset Date: 02/28/22 PT Insurance Information: Jessenia Goyal Total # of Visits Approved: 10 Per Physician Order Total # of Visits to Date: 3 No Show: 0 Canceled Appointment: 0 04/14/24 Plan of Care/Recert Due Pre-Treatment Pain: 2-3/10 Subjective: Pt reports 2-3/10 R shoulder pain today stating it is feeling better. She reports feeling good after last session. Pt reports she will be gone for 2 weeks as she will be in [place]. Exercises: Exercise 1: HEP: Therapy ball circles, [...] interventions and modalities to decrease pain -MET Half-Way Goals Time Frame for Half-Way Goals : 5 weeks Orthotic And Prosthetic Technician Goal 1: Patient will be independent and compliant with a HEP -MET Orthotic And Prosthetic Technician Goal 2: Patient will improve R shoulder ROM to match L for ADLs. -progressing Half-Way Goal 3: Patient will improve R shoulder strength to >/= 4/5 in all major joints and planes. -progressing Half-Way Goal 4: Patient will report 70% improvement in overall symptoms and function. -progressing Minutes Tracking: Time In: 1200 Time Out: 1255 Minutes: 55 Timed Code Treatment Minutes: 54 Minutes Maricel Horan PTA Date: 03/06/2024 documented in this encounter [facility] Evaluation note Diagnosis Papillary thyroid carcinoma (CMS-HCC)- Primary [facility] Diagnosis Papillary thyroid carcinoma (HCC) Malignant neoplasm of thyroid gland documented in this encounter [facility] Work Phone: InstructionsNot on filedocumented in this encounter [facility] Summary Purpose Family History No Family History Records FoundNo Family History Records FoundNo Family History Records FoundNo Family History Records FoundNo Family History Records FoundNo Family History Records FoundNo Family History Records FoundNo Family History Records Found Advance Directives No Advanced Directives Records Found Date Activated Date Inactivated Comments 09/15/2020 5:39 PM 09/16/2020 2:34 PM Additional Source Comments INFORMATION SOURCE (unrecogn ized section and content) DATE CREATED AUTHOR 07/13/2020 [facility] DATE CREATED AUTHOR AUTHOR'S ORGANIZ ATION 09/17/2020 [facility] DATE CREATED AUTHOR AUTHOR'S ORGANIZ ATION 09/28/2022 [facility] DATE CREATED AUTHOR AUTHOR'S ORGANIZ ATION 04/30/2023 [facility] DATE CREATED AUTHOR AUTHOR'S ORGANIZ ATION 05/08/2024 [facility] DATE CREATED AUTHOR AUTHOR'S ORGANIZ ATION 10/01/2024 [facility] DATE CREATED AUTHOR AUTHOR'S ORGANIZ ATION 10/29/2024 [facility] DATE CREATED AUTHOR AUTHOR'S ORGANIZ ATION 01/28/2025 [facility] Care Teams (unrecognized sec tion and content) [employer] Relationship Specialty Start Date End Date Rachel Carvajal MD [address] [id number] PCP - General Family Medicine 09/15/20 [employer] Relationship Specialty Start Date End Date Rachel Carvajal MD [address] [id number] PCP - General Family Medicine 09/15/20 [employer] Relationship Specialty Start Date End Date Rachel Carvajal MD [address] [place] [address] PCP - General Family Medicine 09/15/20 [employer] Relationship Specialty Start Date End Date Rachel Carvajal MD [address] [id number] PCP - General Family Medicine 09/15/20 [employer] Relationship Specialty Start Date End Date Rachel Carvajal MD [address] [place] [address] PCP - General Family Medicine 09/15/20 [employer] Relationship Specialty Start Date End Date Rachel Carvajal MD [address] [place] [address] PCP - General Family Medicine 09/15/20 [employer] Relationship Specialty Start Date End Date Rachel Carvajal MD [address] [place] [address] PCP - General Family Medicine 09/15/20 [employer] Relationship Specialty Start Date End Date Rachel Carvajal MD [address] [id number] PCP - General Family Medicine 09/15/20 [employer] Relationship Specialty Start Date End Date Rachel Carvajal MD [address] [phone] PCP - General Family Medicine 09/15/20 [employer] Relationship Specialty Start Date End Date Rachel Carvajal MD [address] [id number] PCP - General Family Medicine 09/15/20 [employer] Relationship Specialty Start Date End Date Rachel Carvajal MD PCP - General Family Medicine 08/28/20 [employer] Relationship Specialty Start Date End Date Rachel Carvajal MD PCP - General Family Medicine 08/28/20 [employer] Relationship Specialty Start Date End Date Rachel Carvajal MD [address] [place] [address] PCP - General Family Medicine 09/15/20 FOR RECORDS PERTAINING TO PATIENTS WHO ARE [...] BE BASED ON THE PRIMARY CLINICAL RECORDS. [employer] provides no warranty or guarantee of the accuracy or completeness of information in this document.
== END 2025-01-31 08:02 | disposition home or self-care (01) ==
LOC: US 08:02
PROVIDERS: PCP Family Medicine; Visit Provider Family Medicine
DX: C73 Malignant neoplasm of thyroid gland (principal)
CPT/HCPCS: 76536